=== PATIENT | male | born 1975 | race Two or more races ===

== ENCOUNTER 2021-10-14 20:25 | Emergency (ER) | payer MEDICAID, SELFPAY ==
[2021-10-14 21:35] VITALS: BP 178/109; PULSE 69; RESP 18; TEMP 36.8; O2SAT 99; BMI 23.0
[2021-10-14 22:44] VITALS: BP 166/93; PULSE 72; RESP 16; TEMP 36.8; O2SAT 98
[2021-10-14 23:27] LABS: MANUAL DIFF FLAG NO
[2021-10-14] MEDS: Famotidine/PF 20 MG/2 ML VIAL IVPUSH (23:28)
[2021-10-14] MEDS: Lactated Ringers 1,000 ML 999 ML IV (23:28)
[2021-10-14] MEDS: ondansetron HCL 4 MG/2 ML VIAL IVPUSH (23:28)
[2021-10-14 23:30] LABS: Basophils Percent Auto 0.3 % (0-2); Eosinophils Absolute Auto 0.2 X10*3/uL (0.0-0.4); Eosinophils Percent Auto 2.1 % (0-4); Hematocrit 42.4 % (42.0-52.0); Hemoglobin 14.5 g/dl (14.0-18.0); Imm Gran Abs Auto 0.03 X10*3/uL (0.00-0.03); Imm Gran Pct Auto 0.3 % (0.0-0.4); Lymphocytes Absolute Auto 2.5 X10*3/uL (1.2-4.9); Lymphocytes Percent Auto 25.7 % (20-40); Mean Corpuscular HGB Conc 34.2 g/dl (31.0-36.0); Mean Corpuscular Hemoglobin 30.9 pg (27.0-33.0); Mean Corpuscular Volume 90.2 fL (80.0-98.0); Mean Platelet Volume 9.9 fL (9.4-12.4); Monocytes Absolute Auto 0.9 X10*3/uL (0.1-1.2); Monocytes Percent Auto 9.1 % (2-11); Neutrophils Absolute Auto 6.2 x10*3/uL (2.0-8.3); Neutrophils Percent Auto 62.5 % (45-73); Platelet Count 243 X10*3/uL (160-400); Red Cell Distribution Width 12.4 % (11.0-16.0); White Blood Count 9.9 X10*3/uL (4.8-10.8)
--- NOTE | 2021-10-14 23:31 | ED.NAVMDI ---
HPI - Nausea/Vomiting/Diarrhea General Chief complaint: Dizziness Stated complaint: ?Dehydrated Time Seen by Provider: 10/14/21 23:00 Source: patient Mode of arrival: ambulatory Limitations: no limitations History of Present Illness MD elicited complaint: nausea, vomiting and other (weakness) Pertinent past history: other (started after drinkig fabio and vodka heavily last night) Onset (ago): day(s) (this AM) Description of vomiting: food contents and watery Associated nausea: Yes Associated abdominal pain: No Location of pain: none Severity: moderate Exacerbating factors: eating Relieving factors: none Context: other (heavy ETOH unusual for patient) Associated symptoms: loss of appetite, malaise, nausea/vomiting and weakness Related Data Previous Rx's Medication Instructions Recorded famotidine 20 mg tablet (Pepcid) 20 mg PO DAILY PRN abdominal 10/14/21 discomfort #30 tabs ondansetron 4 mg disintegrating 4 mg PO Q8H PRN nausea and 10/14/21 tablet vomiting #20 tabs Allergies Allergy/AdvReac Type Severity Reaction Status Date / Time No Known Allergies Allergy Verified 10/14/21 21:35 Review of Systems Review of Systems: Constitutional : No Weight loss, No Fever, No Chills ENT/Mouth : No sore throat, No Rhinorrhea Eyes: No Swelling, No Redness Cardiovascular : No Chest Pain, No SOB, NoEdema Respiratory : No Cough, No Sputum, No Wheezing Gastrointestinal : Positive Nausea, Positive Vomiting, no Diarrhea, no abdominal Pain, No Hematochezia, No Melena Genitourinary : No Dysuria, No Urinary Frequency, No Hematuria, No Urgency Musculoskeletal : No joint pain, No Myalgias, No Joint Swelling Skin : No Skin Lesions, No rash Neuro : pos Weakness, No Numbness, No Dizziness, No Headache Psych : No Anxiety/Panic, No Depression Heme/Lymph: No Bruising, No Lymphadenopathy Endocrine : No Polyuria, No Polydipsia All other systems reviewed and are negative. Gastrointestinal: Gastrointestinal: Reports nausea PMFSH Past Medical History Attestation statement: The following information was validated with the patient. Medical History (Updated 10/14/21 @ 23:37 by Lucia Holland DO) No pertinent past medical history Social History Social History Advance Directives: No Advance Directives Information Provided: No Physical Exam Vital Signs: Vital Signs: Last Vital Signs Temp 98.3 F 10/14/21 22:44 Pulse 72 10/14/21 22:44 Resp 16 10/14/21 22:44 BP 166/93 H 10/14/21 22:44 Pulse Ox 98 10/14/21 22:44 O2 Del Method 10/14/21 22:44 BMI result Body Mass Index 23.0 Appearance: Alert. Oriented X3. No acute distress. Eyes: Pupils equal, round and reactive to light. ENT: Pharynx mildly dry MM Neck: Normal inspection. Neck supple. CVS: Normal heart rate and rhythm. Pulses normal. Respiratory: No respiratory distress. Breath sounds normal. Abdomen: Soft and non-tender. Skin: Skin warm and dry. Normal skin color. Normal skin turgor. Extremities: No lower extremity edema. No calf ttp Neuro: Oriented X 3. No motor deficit. No sensory deficit. Course Course Course Narrative: feels better stable for DC MDM - Nausea/Vomiting/Diarrhea MDM Narrative Medical decision making narrative: 46 yo male with heavy ETOH last night here with c/o n/v weakness - doesn't normally drink this much. At this time will hydrate, treat symptoms, obtain basic labs anticipate DC home after medications. Lab Data Result diagrams: 10/14/21 23:22 10/14/21 23:22 Labs: Lab Results 10/14/21 10/14/21 Range/Units 23:22 23:22 WBC 9.9 (4.8-10.8) X10*3/uL RBC 4.70 (4.60-5.80) X10*6/uL Hgb 14.5 (14.0-18.0) g/dl Hct 42.4 (42.0-52.0) % MCV 90.2 (80.0-98.0) fL MCH 30.9 (27.0-33.0) pg MCHC 34.2 (31.0-36.0) g/dl RDW 12.4 (11.0-16.0) % Plt Count 243 (160-400) X10*3/uL MPV 9.9 (9.4-12.4) fL Immature Gran % (Auto) 0.3 (0.0-0.4) % Neut % (Auto) 62.5 (45-73) % Lymph % (Auto) 25.7 (20-40) % [place] % (Auto) 9.1 (2-11) % Eos % (Auto) 2.1 (0-4) % Baso % (Auto) 0.3 (0-2) % Lymph # (Auto) 2.5 (1.2-4.9) X10*3/uL [place] # (Auto) 0.9 (0.1-1.2) X10*3/uL Eos # (Auto) 0.2 (0.0-0.4) X10*3/uL Baso # (Auto) 0.0 (0.0-0.2) X10*3/uL Abs Immat Gran (auto) 0.03 (0.00-0.03) X10*3/uL Absolute Neuts (auto) 6.2 (2.0-8.3) x10*3/uL Absolute Nucleated RBC 0.000 (0.0-0.012) X10*3/uL Nucleated RBC % (auto) 0.0 (0.0-0.2) /100WBC Sodium 139 (135-145) mmol/L Potassium 4.3 (3.3-5.1) mmol/L Chloride 104 (96-108) mmol/L Carbon Dioxide 22 (22-29) mmol/L Anion Gap 17 (12-20) BUN 14 (9-16) mg/dL Creatinine 0.89 (0.5-1.4) mg/dL Estim Creat Clear Calc 123.3 Estimated GFR > 60 Random Glucose 93 (60-115) mg/dL Calcium 8.8 (8.4-10.2) mg/dL Magnesium 1.6 (1.6-2.6) mg/dL Total Bilirubin 0.6 (0.0-1.0) mg/dL Direct Bilirubin 0.2 (0.0-0.5) mg/dL AST 24 (5-37) U/L ALT 19 (0-40) U/L Alkaline Phosphatase 77 (39-117) U/L Total Protein 7.2 (6.5-8.0) g/dL Albumin 4.1 (3.5-5.0) g/dL Lipase 52 (8-78) U/L Discharge Plan Discharge Clinical Impression: Vomiting Qualifiers: Vomiting type: unspecified Nausea presence: with nausea Qualified Code(s): R11.2 - Nausea with vomiting, unspecified Patient Disposition: Home, Self-Care Instructions: Acute Nausea and Vomiting (ED) Additional Instructions: return to ED for any worsening symptoms or concerns Prescriptions: New famotidine [Pepcid] 20 mg tablet 20 mg PO DAILY PRN (Reason: abdominal discomfort) Qty: 30 0RF ondansetron 4 mg tablet,disintegrating 4 mg PO Q8H PRN (Reason: nausea and vomiting) Qty: 20 0RF Stand Alone Forms: Work/School Release
[2021-10-14 23:46] LABS: Alanine Aminotransferase 19 U/L (0-40); Albumin Level 4.1 g/dL (3.5-5.0); Alkaline Phosphatase 77 U/L (39-117); Anion Gap 17 (12-20); Aspartate Amino Transferase 24 U/L (5-37); Bilirubin Direct 0.2 mg/dL (0.0-0.5); Bilirubin Total 0.6 mg/dL (0.0-1.0); Blood Urea Nitrogen 14 mg/dL (9-16); Calcium 8.8 mg/dL (8.4-10.2); Carbon Dioxide 22 mmol/L (22-29); Chloride 104 mmol/L (96-108); Creatinine Clr Calc Pharmacy 123.3; Estimated Glomerular Filt Rate > 60; Glucose Random 93 mg/dL (60-115); Lipase 52 U/L (8-78); Magnesium 1.6 mg/dL (1.6-2.6); Potassium 4.3 mmol/L (3.3-5.1); Sodium 139 mmol/L (135-145); Total Protein 7.2 g/dL (6.5-8.0)
[2021-10-15 01:06] VITALS: BP 130/79; PULSE 79; RESP 16; TEMP 36.7; O2SAT 99
[2021-10-16 07:24] LABS: Glucose, Whole Blood 90 mg/dL (60-115)
== END 2021-10-15 01:07 | disposition home or self-care (01) ==
PROVIDERS: Emergency Provider Emergency Medicine
DX: R11.2 Nausea with vomiting, unspecified (principal)
CPT/HCPCS: 36415; 80048; 80076; 82947; 83690; 83735; 85025; 96361; 96374; 96375; 99284; J2405

== ENCOUNTER 2022-02-15 13:41 | Emergency (ER) | payer SELFPAY ==
--- NOTE | ~2022-02-15 | XR_ITS ---
EXAMINATION: XR CHEST CLINICAL INFORMATION: Chest pain COMPARISON: None TECHNIQUE: 2 views of the chest were obtained. FINDINGS: No significant abnormality is noted involving the heart, lungs, mediastinum, bony thorax or soft tissues. XR/XR chest 2V IMPRESSION: Unremarkable chest examination.
--- NOTE | 2022-02-15 13:58 | ED_ITS ---
HPI - Neck Pain/Injury General Chief Complaint: Chest Pain <Suzanna Harman NP - Last Filed: 02/15/22 14:01> Stated Complaint: neck pain no inj <Suzanna Harman NP - Last Filed: 02/15/22 14:01> Time Seen by Provider: 02/15/22 19:44 <Suzanna Harman NP - Last Filed: 02/15/22 14:01> Source: patient <TAM Juarez - Last Filed: 02/15/22 23:48> Mode of arrival: ambulatory <TAM Juarez Last Filed: 02/15/22 23:48> Limitations: no limitations <TAM Juarez Last Filed: 02/15/22 23:48> History of Present Illness HPI Narrative: This is a 46-year-old male with no known medical history however has not seen a PCP in years presenting to the emergency department with complaints of right-sided neck pain, left-sided chest pain that started this morning. Patient tells me this morning he woke up with stiff neck and he felt like he had a ball in the back of his neck on the right side. He tells me he felt like his neck was stiff not hurt when he moved it, he tells me he had his ?girl ?massage the area and put heat on it in since then this has improved. He also reports that after that happened he started experiencing some left-sided chest discomfort and he thought he noted swelling to the left side of his chest. Patient tells me that he is no longer having chest discomfort and he notes that the swelling has gone down. He tells me this is never happened to him before. Patient is noted to be hypertensive for triage I asked patient if he has a history of hypertension he tells me yes years ago he was told he had high blood pressure however was never started on medications he tells me his blood pressure has always been very high and concerning. Patient denies headache, vision changes, dizziness, weakness, chills shortness of breath, chest pain, nausea, vomiting, abdominal pain at this time. Patient is not followed by outpatient providers. NIH stroke scale 0. <TAM Juarez Last Filed: 02/15/22 23:48> Related Data Home Medications: Previous Rx's Medication Instructions Recorded famotidine 20 mg tablet (Pepcid) 20 mg PO DAILY PRN abdominal 10/14/21 discomfort #30 tabs ondansetron 4 mg disintegrating 4 mg PO Q8H PRN nausea and 10/14/21 tablet vomiting #20 tabs amlodipine 5 mg tablet 5 mg PO DAILY 30 days #30 tabs 02/15/22 cyclobenzaprine 10 mg tablet 10 mg PO BEDTIME PRN muscle spasm 02/15/22 #7 tabs lidocaine 5 % topical patch 1 patch topical DAILY PRN pain #15 02/15/22 ea <Suzanna Harman NP - Last Filed: 02/15/22 14:01> Allergies/Adverse Reactions: Allergies Allergy/AdvReac Type Severity Reaction Status Date / Time No Known Allergies Allergy Verified 10/14/21 21:35 <Suzanna Harman NP - Last Filed: 02/15/22 14:01> Review of Systems Review of Systems: Constitutional : No Weight loss, No Fever, No Chills, No Fatigue, No Malaise ENT/Mouth : No sore throat, No Rhinorrhea Eyes: No Eye Pain, No Swelling, No Redness Cardiovascular : No Chest Pain, No SOB, No Dyspnea on Exertion, No Orthopnea, No Edema, No Palpitations Respiratory : No Cough, No Sputum, No Wheezing Gastrointestinal : No Nausea, No Vomiting, No Diarrhea, No Constipation, No abdominal Pain, No Hematochezia, No Melena Genitourinary : No Dysuria, No Urinary Frequency, No Hematuria, Musculoskeletal : No joint pain, No Myalgias, No Joint Swelling, No neck pain Skin : No Skin Lesions, No rash Neuro : No Weakness, No Numbness, No Dizziness, No Headache Psych : No Anxiety/Panic, No Depression All other systems reviewed and are negative <TAM Juarez Last Filed: 02/15/22 23:48> Yes all other systems are reviewed and are negative <TAM Juarez Last Filed: 02/15/22 23:48> PMFSH Past Medical History Attestation statement: The following information was validated with the patient. <TAM Juarez Last Filed: 02/15/22 23:48> Source: old records reviewed and nursing notes reviewed <TAM Juarez - Last Filed: 02/15/22 23:48> Medical History: Medical History No pertinent past medical history <Suzanna Harman NP - Last Filed: 02/15/22 14:01> Social History Social History: Social History Advance Directives: No Advance Directives Information Provided: Yes <Suzanna Harman NP - Last Filed: 02/15/22 14:01> Physical Exam Vital Signs: Vital Signs: Last Vital Signs Temp 98.2 F 02/15/22 23:40 Pulse 63 02/15/22 23:40 Resp 11 L 02/15/22 23:40 BP 159/98 H 02/15/22 23:40 Pulse Ox 97 02/15/22 23:40 O2 Del Method 02/15/22 23:40 BMI result Body Mass Index 23.6 <Suzanna Harman NP - Last Filed: 02/15/22 14:01> Vital Signs: Last Vital Signs Temp 98.2 F 02/15/22 23:40 Pulse 63 02/15/22 23:40 Resp 11 L 02/15/22 23:40 BP 159/98 H 02/15/22 23:40 Pulse Ox 97 02/15/22 23:40 O2 Del Method 02/15/22 23:40 BMI result Body Mass Index 23.6 HTN noted likley secondary to pain and or anxiety will repeat <TAM Juarez - Last Filed: 02/15/22 23:48> Appearance: Alert.? Oriented X3.? No acute distress.? Head: Normocephalic, atraumatic, no step-offs or deformities Eyes: Pupils equal, round and reactive to light.? ENT: Pharynx normal.? Neck: Normal inspection.? Neck supple.? Negative Kernig and Brudzinski. CVS: Normal heart rate and rhythm.? Pulses normal.? Respiratory: No respiratory distress.? Breath sounds normal.? Abdomen: Soft and nontender.? Skin: Skin warm and dry.? Normal skin color.? Normal skin turgor.? Extremities: No lower extremity edema.? No calf ttp. 5/5 strength to bilateral upper and lower extremities Back: Full range of motion to. No midline tenderness. No step-offs or deformities. Overlying skin changes Neuro: Oriented X 3.? No motor deficit.? No sensory deficit. CN 2-12 intact . Ambulating with steady gait normal coordination. NIHSS-0 <TAM Juarez - Last Filed: 02/15/22 23:48> Course Course Course Narrative: This is rapid medical exam. Deferred additional HPI, ROS, PE to primary provider. 46 yo male previously healthy here with constant right sided neck pain, left sided chest pain since 2am. No previous injury or trauma. Will check labs, EKG, CXR. VSS. <Suzanna Harman NP - Last Filed: 02/15/22 14:01> Reevaluation(s) Reevaluation #1: CBC appears to be within normal limits. Chemistry with no acute findings requiring intervention. Troponin negative, EKG nonischemic unlikely ACS. Second troponin pending. Chest x-ray with no acute findings. <TAM Juarez - Last Filed: 02/15/22 23:48> Time: 20:03 <TAM Juarez - Last Filed: 02/15/22 23:48> Reevaluation #2: Second troponin negative. Patient remains symptom-free. Patient's blood pressure remains significantly elevated despite to 5 mg p.o. amlodipine. I discussed this case with my attending Dr. Manning who recommends giving 10 mg po amlodipine now (total of 20 mg) and 1/2 inch of nitro. <TAM Juarez - Last Filed: 02/15/22 23:48> Time: 22:16 <TAM Juarez - Last Filed: 02/15/22 23:48> Reevaluation #3: Patient's blood pressure responded well to 10 mg of amlodipine and nitro. Patient feels well, no chest pain or shortness of breath. Will discharge him home on 5 mg of p.o. amlodipine daily, gave him follow-up with Cardiology, gave him a list of primary care providers in the area. This discharge plan was discussed with my attending Dr. Manning who agrees with my treatment plan. Educated patient on diagnosis and treatment plan, answered all question, patient verbalizes understanding. At this time patient will be discharged home, advised to return with new or worsening symptoms. Educated on worrisome signs and symptoms and when to return. At this time I feel comfortable discharge home. To know I did advise him to come in for repeat blood pressure check in a day or 2 as he does not have a primary care provider in new medications were started. <TAM Juarez - Last Filed: 02/15/22 23:48> Time: 23:44 <TAM Juarez - Last Filed: 02/15/22 23:48> Medications Administered Discontinued Medications Generic Name Dose Route Start Last Admin Trade Name Freq PRN Reason Stop Dose Admin Amlodipine Besylate 5 mg 02/15/22 19:59 02/15/22 20:13 Amlodipine Besylate 5 Mg Tablet PO 02/15/22 20:00 5 mg ONCE ONE Administration Protocol Amlodipine Besylate 5 mg 02/15/22 20:43 02/15/22 21:12 Amlodipine Besylate 5 Mg Tablet PO 02/15/22 20:44 5 mg ONCE ONE Administration Protocol Amlodipine Besylate 10 mg 02/15/22 22:15 02/15/22 23:32 Amlodipine Besylate 10 Mg Tablet PO 02/15/22 22:16 10 mg ONCE ONE Administration Protocol Ketorolac Tromethamine 30 mg 02/15/22 20:41 02/15/22 21:12 Ketorolac Tromethamine 30 Mg/Ml Vial IM 02/15/22 20:42 30 mg ONCE ONE Administration Nitroglycerin 0.5 inch 02/15/22 22:16 02/15/22 23:32 Nitroglycerin 2 % Oint 1 Gm Packet TRANSDERMA 02/15/22 22:17 0.5 inch ONCE ONE Administration <Suzanna Harman NP - Last Filed: 02/15/22 14:01> Medications Administered Discontinued Medications Generic Name Dose Route Start Last Admin Trade Name Freq PRN Reason Stop Dose Admin Amlodipine Besylate 5 mg 02/15/22 19:59 02/15/22 20:13 Amlodipine Besylate 5 Mg Tablet PO 02/15/22 20:00 5 mg ONCE ONE Administration Protocol Amlodipine Besylate 5 mg 02/15/22 20:43 02/15/22 21:12 Amlodipine Besylate 5 Mg Tablet PO 02/15/22 20:44 5 mg ONCE ONE Administration Protocol Amlodipine Besylate 10 mg 02/15/22 22:15 02/15/22 23:32 Amlodipine Besylate 10 Mg Tablet PO 02/15/22 22:16 10 mg ONCE ONE Administration Protocol Ketorolac Tromethamine 30 mg 02/15/22 20:41 02/15/22 21:12 Ketorolac Tromethamine 30 Mg/Ml Vial IM 02/15/22 20:42 30 mg ONCE ONE Administration Nitroglycerin 0.5 inch 02/15/22 22:16 02/15/22 23:32 Nitroglycerin 2 % Oint 1 Gm Packet TRANSDERMA 02/15/22 22:17 0.5 inch ONCE ONE Administration <TAM Juarez - Last Filed: 02/15/22 23:48> Medical Decision Making Medical Decision Making MDM Narrative: 1948 46-year-old male with no outpatient providers presents with complaints of right- sided neck pain left-sided chest pain and swelling that started today which has now resolved and or improved. Patient noted to be hypertensive in triage tells me is a history of high blood pressure however has never taken medications for it. Denies any symptoms associated with high blood pressure. Physical examination benign. NIH stroke scale 0. Negative Kernig and Brudzinski Likely cervical spasm, and chest wall muscle spasms. Unlikely ACS, PE, AAA, meningitis, encephalitis, pericarditis, myocarditis. Plan at this time is to obtain basic labs, troponin, chest x-ray. Will give amlodipine 5 mg for hypertension. <TAM Juarez - Last Filed: 02/15/22 23:48> Lab Data Result Diagrams: : 02/15/22 14:15 02/15/22 14:15 <Suzanna Harman NP - Last Filed: 02/15/22 14:01> Labs: Lab Results 02/15/22 02/15/22 02/15/22 Range/Units 14:15 14:15 14:15 WBC 8.5 (4.8-10.8) X10*3/uL RBC 4.72 (4.60-5.80) X10*6/uL Hgb 14.6 (14.0-18.0) g/dl Hct 42.4 (42.0-52.0) % MCV 89.8 (80.0-98.0) fL MCH 30.9 (27.0-33.0) pg MCHC 34.4 (31.0-36.0) g/dl RDW 12.2 (11.0-16.0) % Plt Count 311 D (160-400) X10*3/uL MPV 10.0 (9.4-12.4) fL Immature Gran % (Auto) 0.4 (0.0-0.4) % Neut % (Auto) 54.7 (45-73) % Lymph % (Auto) 33.9 (20-40) % [place] % (Auto) 7.7 (2-11) % Eos % (Auto) 2.8 (0-4) % Baso % (Auto) 0.5 (0-2) % Lymph # (Auto) 2.9 (1.2-4.9) X10*3/uL [place] # (Auto) 0.7 (0.1-1.2) X10*3/uL Eos # (Auto) 0.2 (0.0-0.4) X10*3/uL Baso # (Auto) 0.0 (0.0-0.2) X10*3/uL Abs Immat Gran (auto) 0.03 (0.00-0.03) X10*3/uL Absolute Neuts (auto) 4.6 (2.0-8.3) x10*3/uL Absolute Nucleated RBC 0.000 (0.0-0.012) X10*3/uL Nucleated RBC % (auto) 0.0 (0.0-0.2) /100WBC Sodium 138 (135-145) mmol/L Potassium 4.2 (3.3-5.1) mmol/L Chloride 105 (96-108) mmol/L Carbon Dioxide 25 (22-29) mmol/L Anion Gap 12 (12-20) BUN 17 H (9-16) mg/dL Creatinine 0.84 (0.5-1.4) mg/dL Estim Creat Clear Calc 132.0 Estimated GFR > 60 Random Glucose 119 H (60-115) mg/dL Calcium 9.7 D (8.4-10.2) mg/dL Magnesium 1.9 (1.6-2.6) mg/dL Total Bilirubin 0.6 (0.0-1.0) mg/dL Direct Bilirubin 0.2 (0.0-0.5) mg/dL AST 20 (5-37) U/L ALT 35 (0-40) U/L Alkaline Phosphatase 82 (39-117) U/L Troponin I High Sens < 3.5 (<3.5-35.0) ng/L Total Protein 7.9 (6.5-8.0) g/dL Albumin 4.5 (3.5-5.0) g/dL Urine Color Urine Appearance Urine pH (5.0-9.0) Ur Specific [place] (1.005-1.025) Urine Protein (Neg-Trace) mg/dL Urine Glucose (UA) (Negative) mg/dL Urine Ketones (Negative) mg/dL Urine Blood (Negative) Urine Nitrite (Negative) Ur Leukocyte Esterase (Negative) Urine Opiates Screen (Not Detect) Urine Fentanyl Screen (Not Detect) Ur Barbiturates Screen (Not Detect) Ur Phencyclidine Scrn (Not Detect) Ur Amphetamines Screen (Not Detect) U Benzodiazepines Scrn (Not Detect) Urine Cocaine Screen (Not Detect) U Marijuana (THC) Screen (Not Detect) COVID-19 (RAMOS) (Negative) COVID-19 Clin Com Influenza Type A (RAFAEL) (Negative) Influenza Type B (RAFAEL) (Negative) Influenza A & B Note 02/15/22 02/15/22 02/15/22 Range/Units 20:01 20:39 20:39 WBC (4.8-10.8) X10*3/uL RBC (4.60-5.80) X10*6/uL Hgb (14.0-18.0) g/dl Hct (42.0-52.0) % MCV (80.0-98.0) fL MCH (27.0-33.0) pg MCHC (31.0-36.0) g/dl RDW (11.0-16.0) % Plt Count (160-400) X10*3/uL MPV (9.4-12.4) fL Immature Gran % (Auto) (0.0-0.4) % Neut % (Auto) (45-73) % Lymph % (Auto) (20-40) % [place] % (Auto) (2-11) % Eos % (Auto) (0-4) % Baso % (Auto) (0-2) % Lymph # (Auto) (1.2-4.9) X10*3/uL [place] # (Auto) (0.1-1.2) X10*3/uL Eos # (Auto) (0.0-0.4) X10*3/uL Baso # (Auto) (0.0-0.2) X10*3/uL Abs Immat Gran (auto) (0.00-0.03) X10*3/uL Absolute Neuts (auto) (2.0-8.3) x10*3/uL Absolute Nucleated RBC (0.0-0.012) X10*3/uL Nucleated RBC % (auto) (0.0-0.2) /100WBC Sodium (135-145) mmol/L Potassium (3.3-5.1) mmol/L Chloride (96-108) mmol/L Carbon Dioxide (22-29) mmol/L Anion Gap (12-20) BUN (9-16) mg/dL Creatinine (0.5-1.4) mg/dL Estim Creat Clear Calc Estimated GFR Random Glucose (60-115) mg/dL Calcium (8.4-10.2) mg/dL Magnesium (1.6-2.6) mg/dL Total Bilirubin (0.0-1.0) mg/dL Direct Bilirubin (0.0-0.5) mg/dL AST (5-37) U/L ALT (0-40) U/L Alkaline Phosphatase (39-117) U/L Troponin I High Sens < 3.5 (<3.5-35.0) ng/L Total Protein (6.5-8.0) g/dL Albumin (3.5-5.0) g/dL Urine Color Urine Appearance Urine pH (5.0-9.0) Ur Specific [place] (1.005-1.025) Urine Protein (Neg-Trace) mg/dL Urine Glucose (UA) (Negative) mg/dL Urine Ketones (Negative) mg/dL Urine Blood (Negative) Urine Nitrite (Negative) Ur Leukocyte Esterase (Negative) Urine Opiates Screen (Not Detect) Urine Fentanyl Screen (Not Detect) Ur Barbiturates Screen (Not Detect) Ur Phencyclidine Scrn (Not Detect) Ur Amphetamines Screen (Not Detect) U Benzodiazepines Scrn (Not Detect) Urine Cocaine Screen (Not Detect) U Marijuana (THC) Screen (Not Detect) COVID-19 (RAMOS) Negative (Negative) COVID-19 Clin Com See Note Influenza Type A (RAFAEL) Negative (Negative) Influenza Type B (RAFAEL) Negative (Negative) Influenza A & B Note See Note 02/15/22 02/15/22 Range/Units 20:39 20:39 WBC (4.8-10.8) X10*3/uL RBC (4.60-5.80) X10*6/uL Hgb (14.0-18.0) g/dl Hct (42.0-52.0) % MCV (80.0-98.0) fL MCH (27.0-33.0) pg MCHC (31.0-36.0) g/dl RDW (11.0-16.0) % Plt Count (160-400) X10*3/uL MPV (9.4-12.4) fL Immature Gran % (Auto) (0.0-0.4) % Neut % (Auto) (45-73) % Lymph % (Auto) (20-40) % [place] % (Auto) (2-11) % Eos % (Auto) (0-4) % Baso % (Auto) (0-2) % Lymph # (Auto) (1.2-4.9) X10*3/uL [place] # (Auto) (0.1-1.2) X10*3/uL Eos # (Auto) (0.0-0.4) X10*3/uL Baso # (Auto) (0.0-0.2) X10*3/uL Abs Immat Gran (auto) (0.00-0.03) X10*3/uL Absolute Neuts (auto) (2.0-8.3) x10*3/uL Absolute Nucleated RBC (0.0-0.012) X10*3/uL Nucleated RBC % (auto) (0.0-0.2) /100WBC Sodium (135-145) mmol/L Potassium (3.3-5.1) mmol/L Chloride (96-108) mmol/L Carbon Dioxide (22-29) mmol/L Anion Gap (12-20) BUN (9-16) mg/dL Creatinine (0.5-1.4) mg/dL Estim Creat Clear Calc Estimated GFR Random Glucose (60-115) mg/dL Calcium (8.4-10.2) mg/dL Magnesium (1.6-2.6) mg/dL Total Bilirubin (0.0-1.0) mg/dL Direct Bilirubin (0.0-0.5) mg/dL AST (5-37) U/L ALT (0-40) U/L Alkaline Phosphatase (39-117) U/L Troponin I High Sens (<3.5-35.0) ng/L Total Protein (6.5-8.0) g/dL Albumin (3.5-5.0) g/dL Urine Color Yellow Urine Appearance Clear Urine pH 5.5 (5.0-9.0) Ur Specific [place] 1.010 (1.005-1.025) Urine Protein Negative (Neg-Trace) mg/dL Urine Glucose (UA) Negative (Negative) mg/dL Urine Ketones Negative (Negative) mg/dL Urine Blood Negative (Negative) Urine Nitrite Negative (Negative) Ur Leukocyte Esterase Negative (Negative) Urine Opiates Screen Not Detected (Not Detect) Urine Fentanyl Screen Not Detected (Not Detect) Ur Barbiturates Screen Not Detected (Not Detect) Ur Phencyclidine Scrn Not Detected (Not Detect) Ur Amphetamines Screen Not Detected (Not Detect) U Benzodiazepines Scrn Not Detected (Not Detect) Urine Cocaine Screen Not Detected (Not Detect) U Marijuana (THC) Screen Not Detected (Not Detect) COVID-19 (RAMOS) (Negative) COVID-19 Clin Com Influenza Type A (RAFAEL) (Negative) Influenza Type B (RAFAEL) (Negative) Influenza A & B Note <Suzanna Harman NP - Last Filed: 02/15/22 14:01> Lab Results 02/15/22 02/15/22 02/15/22 Range/Units 14:15 14:15 14:15 WBC 8.5 (4.8-10.8) X10*3/uL RBC 4.72 (4.60-5.80) X10*6/uL Hgb 14.6 (14.0-18.0) g/dl Hct 42.4 (42.0-52.0) % MCV 89.8 (80.0-98.0) fL MCH 30.9 (27.0-33.0) pg MCHC 34.4 (31.0-36.0) g/dl RDW 12.2 (11.0-16.0) % Plt Count 311 D (160-400) X10*3/uL MPV 10.0 (9.4-12.4) fL Immature Gran % (Auto) 0.4 (0.0-0.4) % Neut % (Auto) 54.7 (45-73) % Lymph % (Auto) 33.9 (20-40) % [place] % (Auto) 7.7 (2-11) % Eos % (Auto) 2.8 (0-4) % Baso % (Auto) 0.5 (0-2) % Lymph # (Auto) 2.9 (1.2-4.9) X10*3/uL [place] # (Auto) 0.7 (0.1-1.2) X10*3/uL Eos # (Auto) 0.2 (0.0-0.4) X10*3/uL Baso # (Auto) 0.0 (0.0-0.2) X10*3/uL Abs Immat Gran (auto) 0.03 (0.00-0.03) X10*3/uL Absolute Neuts (auto) 4.6 (2.0-8.3) x10*3/uL Absolute Nucleated RBC 0.000 (0.0-0.012) X10*3/uL Nucleated RBC % (auto) 0.0 (0.0-0.2) /100WBC Sodium 138 (135-145) mmol/L Potassium 4.2 (3.3-5.1) mmol/L Chloride 105 (96-108) mmol/L Carbon Dioxide 25 (22-29) mmol/L Anion Gap 12 (12-20) BUN 17 H (9-16) mg/dL Creatinine 0.84 (0.5-1.4) mg/dL Estim Creat Clear Calc 132.0 Estimated GFR > 60 Random Glucose 119 H (60-115) mg/dL Calcium 9.7 D (8.4-10.2) mg/dL Magnesium 1.9 (1.6-2.6) mg/dL Total Bilirubin 0.6 (0.0-1.0) mg/dL Direct Bilirubin 0.2 (0.0-0.5) mg/dL AST 20 (5-37) U/L ALT 35 (0-40) U/L Alkaline Phosphatase 82 (39-117) U/L Troponin I High Sens < 3.5 (<3.5-35.0) ng/L Total Protein 7.9 (6.5-8.0) g/dL Albumin 4.5 (3.5-5.0) g/dL Urine Color Urine Appearance Urine pH (5.0-9.0) Ur Specific [place] (1.005-1.025) Urine Protein (Neg-Trace) mg/dL Urine Glucose (UA) (Negative) mg/dL Urine Ketones (Negative) mg/dL Urine Blood (Negative) Urine Nitrite (Negative) Ur Leukocyte Esterase (Negative) Urine Opiates Screen (Not Detect) Urine Fentanyl Screen (Not Detect) Ur Barbiturates Screen (Not Detect) Ur Phencyclidine Scrn (Not Detect) Ur Amphetamines Screen (Not Detect) U Benzodiazepines Scrn (Not Detect) Urine Cocaine Screen (Not Detect) U Marijuana (THC) Screen (Not Detect) COVID-19 (RAMOS) (Negative) COVID-19 Clin Com Influenza Type A (RAFAEL) (Negative) Influenza Type B (RAFAEL) (Negative) Influenza A & B Note 02/15/22 02/15/22 02/15/22 Range/Units 20:01 20:39 20:39 WBC (4.8-10.8) X10*3/uL RBC (4.60-5.80) X10*6/uL Hgb (14.0-18.0) g/dl Hct (42.0-52.0) % MCV (80.0-98.0) fL MCH (27.0-33.0) pg MCHC (31.0-36.0) g/dl RDW (11.0-16.0) % Plt Count (160-400) X10*3/uL MPV (9.4-12.4) fL Immature Gran % (Auto) (0.0-0.4) % Neut % (Auto) (45-73) % Lymph % (Auto) (20-40) % [place] % (Auto) (2-11) % Eos % (Auto) (0-4) % Baso % (Auto) (0-2) % Lymph # (Auto) (1.2-4.9) X10*3/uL [place] # (Auto) (0.1-1.2) X10*3/uL Eos # (Auto) (0.0-0.4) X10*3/uL Baso # (Auto) (0.0-0.2) X10*3/uL Abs Immat Gran (auto) (0.00-0.03) X10*3/uL Absolute Neuts (auto) (2.0-8.3) x10*3/uL Absolute Nucleated RBC (0.0-0.012) X10*3/uL Nucleated RBC % (auto) (0.0-0.2) /100WBC Sodium (135-145) mmol/L Potassium (3.3-5.1) mmol/L Chloride (96-108) mmol/L Carbon Dioxide (22-29) mmol/L Anion Gap (12-20) BUN (9-16) mg/dL Creatinine (0.5-1.4) mg/dL Estim Creat Clear Calc Estimated GFR Random Glucose (60-115) mg/dL Calcium (8.4-10.2) mg/dL Magnesium (1.6-2.6) mg/dL Total Bilirubin (0.0-1.0) mg/dL Direct Bilirubin (0.0-0.5) mg/dL AST (5-37) U/L ALT (0-40) U/L Alkaline Phosphatase (39-117) U/L Troponin I High Sens < 3.5 (<3.5-35.0) ng/L Total Protein (6.5-8.0) g/dL Albumin (3.5-5.0) g/dL Urine Color Urine Appearance Urine pH (5.0-9.0) Ur Specific [place] (1.005-1.025) Urine Protein (Neg-Trace) mg/dL Urine Glucose (UA) (Negative) mg/dL Urine Ketones (Negative) mg/dL Urine Blood (Negative) Urine Nitrite (Negative) Ur Leukocyte Esterase (Negative) Urine Opiates Screen (Not Detect) Urine Fentanyl Screen (Not Detect) Ur Barbiturates Screen (Not Detect) Ur Phencyclidine Scrn (Not Detect) Ur Amphetamines Screen (Not Detect) U Benzodiazepines Scrn (Not Detect) Urine Cocaine Screen (Not Detect) U Marijuana (THC) Screen (Not Detect) COVID-19 (RAMOS) Negative (Negative) COVID-19 Clin Com See Note Influenza Type A (RAFAEL) Negative (Negative) Influenza Type B (RAFAEL) Negative (Negative) Influenza A & B Note See Note 02/15/22 02/15/22 Range/Units 20:39 20:39 WBC (4.8-10.8) X10*3/uL RBC (4.60-5.80) X10*6/uL Hgb (14.0-18.0) g/dl Hct (42.0-52.0) % MCV (80.0-98.0) fL MCH (27.0-33.0) pg MCHC (31.0-36.0) g/dl RDW (11.0-16.0) % Plt Count (160-400) X10*3/uL MPV (9.4-12.4) fL Immature Gran % (Auto) (0.0-0.4) % Neut % (Auto) (45-73) % Lymph % (Auto) (20-40) % [place] % (Auto) (2-11) % Eos % (Auto) (0-4) % Baso % (Auto) (0-2) % Lymph # (Auto) (1.2-4.9) X10*3/uL [place] # (Auto) (0.1-1.2) X10*3/uL Eos # (Auto) (0.0-0.4) X10*3/uL Baso # (Auto) (0.0-0.2) X10*3/uL Abs Immat Gran (auto) (0.00-0.03) X10*3/uL Absolute Neuts (auto) (2.0-8.3) x10*3/uL Absolute Nucleated RBC (0.0-0.012) X10*3/uL Nucleated RBC % (auto) (0.0-0.2) /100WBC Sodium (135-145) mmol/L Potassium (3.3-5.1) mmol/L Chloride (96-108) mmol/L Carbon Dioxide (22-29) mmol/L Anion Gap (12-20) BUN (9-16) mg/dL Creatinine (0.5-1.4) mg/dL Estim Creat Clear Calc Estimated GFR Random Glucose (60-115) mg/dL Calcium (8.4-10.2) mg/dL Magnesium (1.6-2.6) mg/dL Total Bilirubin (0.0-1.0) mg/dL Direct Bilirubin (0.0-0.5) mg/dL AST (5-37) U/L ALT (0-40) U/L Alkaline Phosphatase (39-117) U/L Troponin I High Sens (<3.5-35.0) ng/L Total Protein (6.5-8.0) g/dL Albumin (3.5-5.0) g/dL Urine Color Yellow Urine Appearance Clear Urine pH 5.5 (5.0-9.0) Ur Specific [place] 1.010 (1.005-1.025) Urine Protein Negative (Neg-Trace) mg/dL Urine Glucose (UA) Negative (Negative) mg/dL Urine Ketones Negative (Negative) mg/dL Urine Blood Negative (Negative) Urine Nitrite Negative (Negative) Ur Leukocyte Esterase Negative (Negative) Urine Opiates Screen Not Detected (Not Detect) Urine Fentanyl Screen Not Detected (Not Detect) Ur Barbiturates Screen Not Detected (Not Detect) Ur Phencyclidine Scrn Not Detected (Not Detect) Ur Amphetamines Screen Not Detected (Not Detect) U Benzodiazepines Scrn Not Detected (Not Detect) Urine Cocaine Screen Not Detected (Not Detect) U Marijuana (THC) Screen Not Detected (Not Detect) COVID-19 (RAMOS) (Negative) COVID-19 Clin Com Influenza Type A (RAFAEL) (Negative) Influenza Type B (RAFAEL) (Negative) Influenza A & B Note <TAM Juarez - Last Filed: 02/15/22 23:48> Critical Care Time Critical Care Time Critical Care Time: No <TAM Juarez - Last Filed: 02/15/22 23:48> Discharge Plan Discharge Clinical Impression: Chest pain, Spasm of cervical paraspinous muscle, High blood pressure <Suzanna Harman NP - Last Filed: 02/15/22 14:01> Patient Disposition: Home, Self-Care <Suzanna Harman NP - Last Filed: 02/15/22 14:01> Instructions: Muscle Spasm (ED), Chest Wall Pain (ED) <Suzanna Harman NP - Last Filed: 02/15/22 14:01> Additional Instructions: Take your medications as prescribed. If you were prescribed antibiotics today, it is important that you take your medication to their entirety, do not skip any doses, do not finish them early. Follow-up with your primary care provider this week. Follow-up with cardiology if necessary Return to the emergency department with new or worsening symptoms. Such as fevers, chills, chest pain, shortness of breath, nausea, vomiting, dizziness, headache, vision changes, lethargy, worsening pain, swelling any new or worrisome signs and symptoms In case of emergency call 911 Your laboratory studies, cardiac enzymes, EKG were reassuring. Your x-ray showed no acute findings. Please check your blood pressure Saturday, Saturday, Saturday, write it down ensure there primary care provider. I gave you list of primary care providers in the area. Please return in a day or 2 for a blood pressure check as you do not have a primary care provider <Suzanna Harman NP - Last Filed: 02/15/22 14:01> Prescriptions: New cyclobenzaprine 10 mg tablet 10 mg PO BEDTIME PRN (Reason: muscle spasm) Qty: 7 0RF lidocaine 5 % adhesive patch,medicated 1 patch topical DAILY PRN (Reason: pain) Qty: 15 0RF Rx Instructions: leave on most painful area for up to 12 hrs amlodipine 5 mg tablet 5 mg PO DAILY 30 Days Qty: 30 0RF No Action famotidine [Pepcid] 20 mg tablet 20 mg PO DAILY PRN (Reason: abdominal discomfort) Qty: 30 0RF ondansetron 4 mg tablet,disintegrating 4 mg PO Q8H PRN (Reason: nausea and vomiting) Qty: 20 0RF <Suzanna Harman NP - Last Filed: 02/15/22 14:01> Referrals: [facility] [place] [facility] [Provider Group] - 1 week <Suzanna Harman NP - Last Filed: 02/15/22 14:01> Stand Alone Forms: Work/School Release <Suzanna Harman NP - Last Filed: 02/15/22 14:01>
[2022-02-15 13:59] VITALS: BP 194/122; PULSE 84; RESP 18; TEMP 36.5; O2SAT 98; BMI 23.6
--- NOTE | 2022-02-15 14:00 | ECG_ITS ---
Test Reason : chest pain Blood Pressure : / mmHG Vent. Rate : 083 BPM Atrial Rate : 083 BPM P-R Int : 198 ms QRS Dur : 096 ms QT Int : 374 ms P-R-T Axes : 034 -07 -12 degrees QTc Int : 439 ms Normal sinus rhythm Minimal voltage criteria for LVH, may be normal variant ( R in aVL ) Borderline ECG No previous ECGs available Referred By: Suzanna Harman Electronically Signed By:SHERRY DALLAS MD
[2022-02-15 14:18] LABS: MANUAL DIFF FLAG NO
[2022-02-15 14:20] LABS: Basophils Percent Auto 0.5 % (0-2); Eosinophils Absolute Auto 0.2 X10*3/uL (0.0-0.4); Eosinophils Percent Auto 2.8 % (0-4); Hematocrit 42.4 % (42.0-52.0); Hemoglobin 14.6 g/dl (14.0-18.0); Imm Gran Abs Auto 0.03 X10*3/uL (0.00-0.03); Imm Gran Pct Auto 0.4 % (0.0-0.4); Lymphocytes Absolute Auto 2.9 X10*3/uL (1.2-4.9); Lymphocytes Percent Auto 33.9 % (20-40); Mean Corpuscular HGB Conc 34.4 g/dl (31.0-36.0); Mean Corpuscular Hemoglobin 30.9 pg (27.0-33.0); Mean Corpuscular Volume 89.8 fL (80.0-98.0); Monocytes Absolute Auto 0.7 X10*3/uL (0.1-1.2); Monocytes Percent Auto 7.7 % (2-11); Neutrophils Absolute Auto 4.6 x10*3/uL (2.0-8.3); Neutrophils Percent Auto 54.7 % (45-73); Platelet Count 311 X10*3/uL (160-400); Red Blood Count 4.72 X10*6/uL (4.60-5.80); Red Cell Distribution Width 12.2 % (11.0-16.0); White Blood Count 8.5 X10*3/uL (4.8-10.8)
[2022-02-15 14:44] LABS: Alanine Aminotransferase 35 U/L (0-40); Albumin Level 4.5 g/dL (3.5-5.0); Alkaline Phosphatase 82 U/L (39-117); Anion Gap 12 (12-20); Aspartate Amino Transferase 20 U/L (5-37); Bilirubin Direct 0.2 mg/dL (0.0-0.5); Bilirubin Total 0.6 mg/dL (0.0-1.0); Blood Urea Nitrogen 17 mg/dL (9-16); Calcium 9.7 mg/dL (8.4-10.2); Carbon Dioxide 25 mmol/L (22-29); Chloride 105 mmol/L (96-108); Estimated Glomerular Filt Rate > 60; Glucose Random 119 mg/dL (60-115); Magnesium 1.9 mg/dL (1.6-2.6); Potassium 4.2 mmol/L (3.3-5.1); Sodium 138 mmol/L (135-145); Total Protein 7.9 g/dL (6.5-8.0)
[2022-02-15 15:04] LABS: Troponin-I High Sensitivity < 3.5 ng/L (<3.5-35.0)
[2022-02-15 19:42] VITALS: BP 184/104; PULSE 78; RESP 18; TEMP 36.8; O2SAT 98
[2022-02-15 20:01] VITALS: BP 175/106; PULSE 78; RESP 18; TEMP 36.8; O2SAT 96
[2022-02-15] MEDS: amLODIPine Besylate 5 MG TABLET PO ×2 (20:13→21:12)
[2022-02-15 20:34] LABS: Troponin-I High Sensitivity < 3.5 ng/L (<3.5-35.0)
[2022-02-15 20:42] VITALS: BP 167/110; PULSE 70; RESP 20; O2SAT 97
[2022-02-15 20:51] LABS: Appearance Urine Clear; Color Urine Yellow; Glucose Urine UA Negative (Negative); Leukocyte Esterase Urine Negative (Negative); Nitrite Urine Negative (Negative); PH 5.5 (5.0-9.0); Urine Blood Negative (Negative); Urine Ketones Negative (Negative); Urine Protein Negative (Neg-Trace)
[2022-02-15 20:59] LABS: Amphetamine Screen Urine Not Detected (Not Detect); Barbiturates, Urine Not Detected (Not Detect); Benzodiazepines Screen Urine Not Detected (Not Detect); Cannabinoid Screen Urine Not Detected (Not Detect); Cocaine Screen Urine Not Detected (Not Detect); Fentanyl, urine Not Detected (Not Detect); Opiate Screen Urine Not Detected (Not Detect); Phencyclidine Screen Urine Not Detected (Not Detect)
[2022-02-15 21:06] LABS: COVID-19 Test Negative (Negative); IDNOW Serial# BCCEAD1C
[2022-02-15 21:07] LABS: IDNOW Serial# 16C4AD1C; Influenza A Negative (Negative); Influenza B2 Negative (Negative)
[2022-02-15] MEDS: Ketorolac Tromethamine 30 MG/ML VIAL IM (21:12)
[2022-02-15 22:02] VITALS: BP 171/105; PULSE 74; RESP 11; TEMP 36.6; O2SAT 99
[2022-02-15] MEDS: amLODIPine Besylate 10 MG TABLET PO (23:32)
[2022-02-15] MEDS: Nitroglycerin 2 % Oint 1 GM Packet 0.5 INCH TRANSDERMA (23:32)
[2022-02-15 23:40] VITALS: BP 159/98; PULSE 63; RESP 11; TEMP 36.8; O2SAT 97
== END 2022-02-15 23:56 | disposition home or self-care (01) ==
PROVIDERS: Nurse Practitioner Family; Physician Assistant; Emergency Provider Emergency Medicine
DX: R07.9 Chest pain, unspecified (principal); M62.838 Other muscle spasm; I10 Essential (primary) hypertension; Z20.822 Contact with and (suspected) exposure to COVID-19; Z79.899 Other long term (current) drug therapy
CPT/HCPCS: 36415; 71046; 80048; 80076; 80307; 81003; 83735; 84484; 85025; 87502; 87635; 93005; 96372; 99284; 99285; J1885

== ENCOUNTER 2022-03-09 21:43 | Emergency (ER) | payer SELFPAY ==
[2022-03-09 21:52] VITALS: BP 144/92; PULSE 82; RESP 20; TEMP 36.5; O2SAT 97; BMI 23.1
--- NOTE | 2022-03-09 22:05 | ED.GENADULT ---
HPI - General Adult General Chief complaint: Extremity Problem Stated complaint: Gout Time Seen by Provider: 03/09/22 22:05 Source: patient Mode of arrival: ambulatory Limitations: no limitations History of Present Illness HPI narrative: Patient is a 46 year old assigned male at with no reported medical history presenting to the emergency department today with left great toe pain. Patient states that for the last week or so he has had left great toe pain, redness, and swelling. Patient states that Naproxen helped some. Patient denies any dizziness, lightheadedness, abdominal pain, nausea, vomiting, fever, chills, blurry vision, double vision, loss of vision, chest pain, difficulty breathing, shortness of breath, back pain, night sweats, pain with urination, increased urinary frequency, increased urinary urgency, blood in his urine or stool, syncope or a near syncopal episode, recent trauma or falls, bowel incontinence, bladder incontinence, bowel retention, bladder retention, or any other complaints at this time. Onset (ago): week(s) (1) Location: left (great toe) Radiation: non-radiation Severity: mild Severity scale (1-10): 2 Quality: dull Pain Consistency: constant Relieving factors: none Exacerbating factors: none Associated symptoms: denies other symptoms Treatments prior to arrival: none Related Data Previous Rx's Medication Instructions Recorded famotidine 20 mg tablet (Pepcid) 20 mg PO DAILY PRN abdominal 10/14/21 discomfort #30 tabs ondansetron 4 mg disintegrating 4 mg PO Q8H PRN nausea and 10/14/21 tablet vomiting #20 tabs amlodipine 5 mg tablet 5 mg PO DAILY 30 days #30 tabs 02/15/22 cyclobenzaprine 10 mg tablet 10 mg PO BEDTIME PRN muscle spasm 02/15/22 #7 tabs lidocaine 5 % topical patch 1 patch topical DAILY PRN pain #15 02/15/22 ea colchicine 0.6 mg tablet 0.6 mg PO DAILY #14 tabs 03/09/22 prednisone 20 mg tablet 20 mg PO DAILY 7 days #7 tabs 03/09/22 Allergies Allergy/AdvReac Type Severity Reaction Status Date / Time No Known Allergies Allergy Verified 10/14/21 21:35 Review of Systems Constitutional: Constitutional: Reports no additional constitutional complaints, Denies chills, Denies fever(s) and Denies night sweats Eyes: Eyes: Reports no additional eye complaints, Denies blurry vision, Denies change in vision, Denies diplopia, Denies eye discharge, Denies loss of vision and Denies eye pain ENT: Denies dizziness Cardiovascular: Cardiovascular: Reports no additional cardiovascular complaints, Denies chest pain, Denies lightheadedness, Denies Loss of Consciousness and Denies dyspnea Respiratory: Respiratory: Reports no additional respiratory complaints and Denies dyspnea Gastrointestinal: Gastrointestinal: Reports no additional gastrointestinal complaints, Denies abdominal pain, Denies melena, Denies hematochezia, Denies change in bowel habits and Denies change in stool character Genitourinary: Genitourinary: Reports no additional male genitourinary complaints, Denies hematuria, Denies oliguria, Denies difficulty urinating, Denies dysuria, Denies urinary frequency, Denies urinary hesitancy, Denies urinary incontinence and Denies urinary urgency Musculoskeletal: Musculoskeletal: Reports no additional musculoskeletal complaints, Denies numbness and Denies tingling Comments: left great toe pain Neurologic: Denies dizziness, Denies loss of vision, Denies numbness and Denies tingling Psychiatric: Psychiatric: Reports no additional psychiatric complaints Endocrine: Endocrine: Reports no additional endocrine complaints Hematologic/Lymphatic: Hematologic/Lymphatic: Reports no additional hematologic/lymphatic complaints Allergic/Immunologic: Allergic/Immunologic: Reports no additional allergic/immunologic complaints PMFSH Past Medical History Attestation statement: The following information was validated with the patient. Source: old records reviewed and nursing notes reviewed Medical History No pertinent past medical history Social History Social History Smoked in Last 30 Days: No Use of substances other than those prescribed or required for medical reasons: No Advance Directives: No Physical Exam ED Vital Signs: Vital Signs - 24 hr 03/09/22 21:52 03/09/22 22:06 Temperature 97.7 F 97.6 F Pulse Rate 82 84 Respiratory Rate 20 20 Blood Pressure 144/92 H 143/91 H Pulse Oximetry 97 97 Oxygen Delivery Method Room Air Room Air BMI result Body Mass Index 23.1 Const General: cooperative, no acute distress, alert and awake Nutritional Appearance: well nourished Orientation/consciousness: patient oriented x3 Limitations: no limitations [facility] Head: Yes normal to inspection and Yes atraumatic Ears: hearing grossly normal bilaterally and external ears normal General nose exam: Normal external nose present, no nasal discharge noted and no epistaxis Face and sinus: Yes normal facial exam, No abrasion and No laceration Mouth: Normal oral and palatal mucosa present, no drooling and no muffled voice Eyes General: appearance normal, both eyes and all related structures Periorbital: periorbital findings normal Eyelids: Yes eyelids normal Conjunctivae: conjunctivae normal Pupils: Equal, round and reactive pupils present EOM: EOMs intact bilaterally Neck Neck: Yes normal visual inspection, Yes full ROM and Yes no lymphadenopathy Chest Chest palpation & inspection: normal inspection of the chest Resp Effort & Inspection: normal respiratory effort and able to speak in complete sentences Auscultation: clear to auscultation bilaterally Cardio Rate: regular rate Rhythm: regular rhythm GI Inspection: Yes normal to inspection Palpation (GI): Soft to palpation, not firm, nontender, no guarding and Rigid due to palpation Neuro General: patient oriented x3 and moves all extremities Cranial nerves: Yes Equal, round and reactive pupils present Cognition (Neuro): normal cognition Motor exam (neuro): 5/5 motor strength present throughout Sensory Exam: Normal double simultaneous stimulation for sensation Coordination: [id number] test normal Extrem Other: left great toe swelling, minimal redness, and minimal warmth General: Yes full ROM and Yes capillary refill normal Psych Appearance: grossly normal Mental Status: mental status grossly normal Affect: normal affect Attitude: cooperative Thought process: Normal thought process present Thought content: Normal thought content present Insight: Good insight present (Psych) Medical Decision Making Medical Decision Making MDM Narrative: Patient is a 46 year old assigned male at with no reported medical history presenting to the emergency department today with left great toe pain. Patient's physical exam showed minimal swelling to the left great toe, with minimal erythema, and minimal warmth. Patient's clinical presentation is most consistent with gout. I explained my physical exam findings as well as all test results to the patient. I answered all questions asked by the patient. I stressed the importance of the patient taking his medication as prescribed. I stressed the importance of the patient following up with his primary care provider. I stressed the importance of the patient returning to the emergency department immediately if his symptoms were to worsen or if he were to develop any dizziness, shortness of breath, difficulty breathing, chest pain, blurry vision, loss of vision, nausea, vomiting, abdominal pain, fever, chills, back pain, or any other complaints. Patient verbalized agreement and understanding with this treatment plan and discharge. Differential Diagnosis Differential Diagnoses: The differential diagnosis associated with the presentation includes gout Discharge Plan Discharge Clinical Impression: Gout Patient Disposition: Home, Self-Care Instructions: Low Purine Diet (ED), Gout (ED) Additional Instructions: Follow up with your primary care provider. Return to the emergency department immediately if your symptoms worsen or if you develop any dizziness, shortness of breath, difficulty breathing, chest pain, blurry vision, loss of vision, nausea, vomiting, abdominal pain, fever, chills, back pain, or any other complaints. Prescriptions: New colchicine 0.6 mg tablet 0.6 mg PO DAILY Qty: 14 0RF prednisone 20 mg tablet 20 mg PO DAILY 7 Days Qty: 7 0RF No Action famotidine [Pepcid] 20 mg tablet 20 mg PO DAILY PRN (Reason: abdominal discomfort) Qty: 30 0RF ondansetron 4 mg tablet,disintegrating 4 mg PO Q8H PRN (Reason: nausea and vomiting) Qty: 20 0RF cyclobenzaprine 10 mg tablet 10 mg PO BEDTIME PRN (Reason: muscle spasm) Qty: 7 0RF lidocaine 5 % adhesive patch,medicated 1 patch topical DAILY PRN (Reason: pain) Qty: 15 0RF Rx Instructions: leave on most painful area for up to 12 hrs amlodipine 5 mg tablet 5 mg PO DAILY 30 Days Qty: 30 0RF Referrals: [facility] [place] Family [facility] [Provider Group] (Call to establish and follow up with a primary care provider. If you already have a primary care provider, please follow up with them.) [facility] [place] [facility] [Provider Group] (Call to establish and follow up with a primary care provider. If you already have a primary care provider, please follow up with them.) [facility] [place] Primary [facility] [Provider Group] (Call to establish and follow up with a primary care provider. If you already have a primary care provider, please follow up with them.) Print Language: Brazilian
[2022-03-09 22:06] VITALS: BP 143/91; PULSE 84; RESP 20; TEMP 36.4; O2SAT 97
--- NOTE | 2022-03-09 22:11 | PC.NURSE ---
pt c/o pain on the great toe of L foot redness and swelling noted
--- NOTE | 2022-03-09 22:13 | PC.NURSE ---
pt AOx4, calm/cooperative
[2022-03-09] MEDS: Ketorolac Tromethamine 15 MG/ML VIAL IM (22:33)
[2022-03-09] MEDS: predniSONE 20 MG TABLET PO (22:33)
--- NOTE | 2022-03-09 22:36 | PC.NURSE ---
Discharge instructions given and explained, all of pt's questions answered, ambulates safely/independently, no apparent distress, alert and oriented
== END 2022-03-09 22:39 | disposition home or self-care (01) ==
PROVIDERS: Emergency Provider Emergency Medicine
DX: M10.9 Gout, unspecified (principal)
CPT/HCPCS: 96372; 99284; J1885

== ENCOUNTER 2022-05-05 08:53 | Emergency (ER) | payer OTHER, SELFPAY ==
[2022-05-05] VITALS (7 sets, daily range): BP systolic 165–207; BP diastolic 104–118; PULSE 81; RESP 20; TEMP 36.5; O2SAT 98; BMI 23.7
--- NOTE | 2022-05-05 09:18 | ECG_ITS ---
Test Reason : HIGH BP Blood Pressure : / mmHG Vent. Rate : 082 BPM Atrial Rate : 082 BPM P-R Int : 176 ms QRS Dur : 094 ms QT Int : 386 ms P-R-T Axes : 027 -06 -11 degrees QTc Int : 450 ms Normal sinus rhythm Minimal voltage criteria for LVH, may be normal variant ( R in aVL ) Borderline ECG When compared with ECG of 15-FEB-2022 14:06, No significant change was found Referred By: Generic ED Physician Electronically Signed By:Favian Leon
[2022-05-05] MEDS: amLODIPine Besylate 5 MG TABLET PO ×2 (09:32→10:18)
[2022-05-05 09:36] LABS: MANUAL DIFF FLAG NO
--- NOTE | 2022-05-05 09:39 | ED_ITS ---
HPI - General Adult General Chief complaint: General Medical Stated complaint: high BP Time Seen by Provider: 05/05/22 09:21 Source: patient Mode of arrival: ambulatory Limitations: no limitations History of Present Illness HPI narrative: 47 yo male with history of HTN, not currently taking medications who presents to the ER from home for evaluation of elevated BP. He reports waking up today and feeling dizzy with a little bit of blurred vision. He felt off. He took his BP and it was 168/106 at home. He states he ran out of his previously prescribed amlodipine that was prescribed by provider here back in January. He just got his insurance so plan to be able to follow up with his primary care doctor. He reports on arrival to the ER his dizziness and blurred vision are resolved. Denies chest pain or headache. He does not know what his BP usually runs him at home. He only checks it when he feels off. MD complaint: elevated BP w/ dizziness and blurred vision Onset (ago): hour(s) Location: head Radiation: non-radiation Severity: mild Pain Consistency: now resolved Relieving factors: rest Exacerbating factors: none Associated symptoms: denies other symptoms Treatments prior to arrival: none Related Data Previous Rx's Medication Instructions Recorded famotidine 20 mg tablet (Pepcid) 20 mg PO DAILY PRN abdominal 10/14/21 discomfort #30 tabs ondansetron 4 mg disintegrating 4 mg PO Q8H PRN nausea and 10/14/21 tablet vomiting #20 tabs amlodipine 5 mg tablet 5 mg PO DAILY 30 days #30 tabs 02/15/22 cyclobenzaprine 10 mg tablet 10 mg PO BEDTIME PRN muscle spasm 02/15/22 #7 tabs lidocaine 5 % topical patch 1 patch topical DAILY PRN pain #15 02/15/22 ea colchicine 0.6 mg tablet 0.6 mg PO DAILY #14 tabs 03/09/22 prednisone 20 mg tablet 20 mg PO DAILY 7 days #7 tabs 03/09/22 amlodipine 10 mg tablet 10 mg PO DAILY #30 tabs 05/05/22 lisinopril 10 mg tablet 10 mg PO DAILY #30 tabs 05/05/22 Allergies Allergy/AdvReac Type Severity Reaction Status Date / Time No Known Allergies Allergy Verified 10/14/21 21:35 Review of Systems Review of Systems: Yes all other systems are reviewed and are negative PMFSH Past Medical History Medical History No pertinent past medical history Social History Social History Advance Directives: No Advance Directives Information Provided: No Physical Exam ED Vital Signs: Vital Signs - 24 hr 05/05/22 09:15 05/05/22 10:10 05/05/22 11:04 Temperature 97.7 F Pulse Rate 81 Respiratory Rate 20 Blood Pressure 173/111 H 183/110 H 197/105 H Pulse Oximetry 98 Oxygen Delivery Method Room Air 05/05/22 11:57 05/05/22 11:57 05/05/22 12:26 Temperature Pulse Rate Respiratory Rate Blood Pressure 199/118 H 194/112 H 200/104 H Pulse Oximetry Oxygen Delivery Method 05/05/22 12:27 05/05/22 12:30 Temperature Pulse Rate Respiratory Rate Blood Pressure 207/105 H 165/110 H Pulse Oximetry Oxygen Delivery Method BMI result Body Mass Index 23.7 Appearance: Alert. Oriented X3. No acute distress. Eyes: Pupils equal, round and reactive to light. ENT: Pharynx normal. Neck: Normal inspection. Neck supple. CVS: Normal heart rate and rhythm. Pulses normal. Respiratory: No respiratory distress. Breath sounds normal. Abdomen: Soft and nontender. +BS x4 Skin: Skin warm and dry. Normal skin color. Normal skin turgor. No rashes. Extremities: No lower extremity edema. Neuro: Oriented X 3. No motor deficit. No sensory deficit. Course Course Course Narrative: 47 yo male with untreated HTN presents with BP 170/100 - no current sxs but was dizzy earlier. Ordered for 5 mg of norvasc which is what he was prescribed back in January. Basic labs and EKG ordered given reports of dizziness at home. will reassess Reevaluation(s) Reevaluation #1: Labs unremarkable. Blood pressure trended up. Given 20 mg of lisinopril. Initially after this blood pressure trends up to 200/100 however when at a more appropriate size cuff was placed on the patient as well pressure 160/110. He remains asymptomatic. At this time patient is stable for discharge home with re-initiation of oral antihypertensive medications no evidence of hypertensive urgency or emergency at this time. He was given instructions and will follow up with PCP. Medications Administered Discontinued Medications Generic Name Dose Route Start Last Admin Trade Name Karlee PRN Reason Stop Dose Admin Amlodipine Besylate 5 mg 05/05/22 09:21 05/05/22 09:32 Amlodipine Besylate 5 Mg Tablet PO 05/05/22 09:22 5 mg ONCE ONE Administration Protocol Amlodipine Besylate 5 mg 05/05/22 10:11 05/05/22 10:18 Amlodipine Besylate 5 Mg Tablet PO 05/05/22 10:12 5 mg ONCE ONE Administration Protocol Lisinopril 20 mg 05/05/22 11:03 05/05/22 11:06 Lisinopril 20 Mg Tablet PO 05/05/22 11:04 20 mg ONCE ONE Administration Protocol Medical Decision Making Medical Decision Making [facility] Narrative: 47 yo male presenting with elevated BP, transient dizziness and blurred vision. BP 170/100s on arrival. No current symptoms. BP trended up after norvasc, so he was given 20 mg lisinopril. he was asymptomatic. BP 160/110 after a more appropriate size cuff was placed on the patient. He denies any headache, dizziness, vision changes, chest pain. He feels well would like to go home. I expressed the importance of compliance with medication and outpatient follow-up. Expressed understanding with given return precautions. Stable for discharge home. Differential Diagnosis Differential Diagnoses: The differential diagnosis associated with the presentation includes Untreated hypertension, malignant hypertension, hypertensive urgency, hypertensive emergency, Admission/Observation Consideration of admission/observation: Escalation of care including admission/observation considered Initially presented with symptomatic HTN, considered admission but he improved and was asymptomatic. Lab Data [facility] Lab Attestation statement: I reviewed the patient's lab results. Unremarkable lab workup. 05/05/22 09:31 05/05/22 09:31 Labs: Lab Results 05/05/22 05/05/22 05/05/22 Range/Units 09:31 09:31 09:31 WBC 7.6 (4.8-10.8) X10*3/uL RBC 5.03 (4.60-5.80) X10*6/uL Hgb 15.2 (14.0-18.0) g/dl Hct 44.1 (42.0-52.0) % MCV 87.7 (80.0-98.0) fL MCH 30.2 (27.0-33.0) pg MCHC 34.5 (31.0-36.0) g/dl RDW 12.4 (11.0-16.0) % Plt Count 293 (160-400) X10*3/uL MPV 9.8 (9.4-12.4) fL Immature Gran % (Auto) 0.4 (0.0-0.4) % Neut % (Auto) 54.2 (45-73) % Lymph % (Auto) 33.2 (20-40) % Sabine % (Auto) 8.4 (2-11) % Eos % (Auto) 3.3 (0-4) % Baso % (Auto) 0.5 (0-2) % Lymph # (Auto) 2.5 (1.2-4.9) X10*3/uL Sabine # (Auto) 0.6 (0.1-1.2) X10*3/uL Eos # (Auto) 0.3 (0.0-0.4) X10*3/uL Baso # (Auto) 0.0 (0.0-0.2) X10*3/uL Abs Immat Gran (auto) 0.03 (0.00-0.03) X10*3/uL Absolute Neuts (auto) 4.1 (2.0-8.3) x10*3/uL Absolute Nucleated RBC 0.000 (0.0-0.012) X10*3/uL Nucleated RBC % (auto) 0.0 (0.0-0.2) /100WBC Sodium 138 (135-145) mmol/L Potassium 4.2 (3.3-5.1) mmol/L Chloride 104 (96-108) mmol/L Carbon Dioxide 21 L (22-29) mmol/L Anion Gap 17 (12-20) BUN 14 (9-16) mg/dL Creatinine 1.02 (0.5-1.4) mg/dL Estim Creat Clear Calc 107.5 Estimated GFR > 60 Random Glucose 102 (60-115) mg/dL Calcium 9.3 (8.4-10.2) mg/dL Magnesium 1.7 (1.6-2.6) mg/dL Total Bilirubin 0.6 (0.0-1.0) mg/dL Direct Bilirubin < 0.2 (0.0-0.5) mg/dL AST 19 (5-37) U/L ALT 28 (0-40) U/L Alkaline Phosphatase 90 (39-117) U/L Troponin I High Sens < 3.5 (<3.5-35.0) ng/L Total Protein 7.6 (6.5-8.0) g/dL Albumin 4.4 (3.5-5.0) g/dL Independent Interpretation I performed an independent interpretation of an: EKG Interpretation: ekg with normal sinus rhythm, HR 82 bpm, isolated t-wave inversion in lead III only, peaked T waves in V2 only, no ST segment elevations or depressions External Record Review External record reviewed: Outpatient record Tests considered The following testing was considered but not selected: CT head considered given the complaint of dizziness however he denied headache and there was low clinical suspicion for any intracranial acute pathology. Prescription Management I considered prescription management with: Other (anti-hypertensives) Chronic Conditions Patient?s care impacted by: Hypertension Critical Care Time Critical Care Time Critical Care Time: No Discharge Plan Discharge Clinical Impression: Hypertension Patient Disposition: Home, Self-Care Instructions: DASH Eating Plan (ED), Hypertension (ED) Additional Instructions: Your lab workup and EKG today were unremarkable. Your blood pressure was very elevated. It is important that you take the prescribed blood pressure medications as prescribed. Monitor your BP at home several hours after taking the medications. Follow up with your doctor as soon as posisble. If you develop new or worsening symptoms call 911 or come back to the ER for further evaluation. Prescriptions: New amlodipine 10 mg tablet 10 mg PO DAILY Qty: 30 1RF lisinopril 10 mg tablet 10 mg PO DAILY Qty: 30 1RF No Action colchicine 0.6 mg tablet 0.6 mg PO DAILY Qty: 14 0RF prednisone 20 mg tablet 20 mg PO DAILY 7 Days Qty: 7 0RF famotidine [Pepcid] 20 mg tablet 20 mg PO DAILY PRN (Reason: abdominal discomfort) Qty: 30 0RF ondansetron 4 mg tablet,disintegrating 4 mg PO Q8H PRN (Reason: nausea and vomiting) Qty: 20 0RF cyclobenzaprine 10 mg tablet 10 mg PO BEDTIME PRN (Reason: muscle spasm) Qty: 7 0RF lidocaine 5 % adhesive patch,medicated 1 patch topical DAILY PRN (Reason: pain) Qty: 15 0RF Rx Instructions: leave on most painful area for up to 12 hrs amlodipine 5 mg tablet 5 mg PO DAILY 30 Days Qty: 30 0RF Referrals: Monisha Diggs MD [Primary Care Provider] - (HTN)
[2022-05-05 09:44] LABS: Basophils Percent Auto 0.5 % (0-2); Eosinophils Absolute Auto 0.3 X10*3/uL (0.0-0.4); Eosinophils Percent Auto 3.3 % (0-4); Hematocrit 44.1 % (42.0-52.0); Hemoglobin 15.2 g/dl (14.0-18.0); Imm Gran Abs Auto 0.03 X10*3/uL (0.00-0.03); Imm Gran Pct Auto 0.4 % (0.0-0.4); Lymphocytes Absolute Auto 2.5 X10*3/uL (1.2-4.9); Lymphocytes Percent Auto 33.2 % (20-40); Mean Corpuscular HGB Conc 34.5 g/dl (31.0-36.0); Mean Corpuscular Hemoglobin 30.2 pg (27.0-33.0); Mean Corpuscular Volume 87.7 fL (80.0-98.0); Mean Platelet Volume 9.8 fL (9.4-12.4); Monocytes Absolute Auto 0.6 X10*3/uL (0.1-1.2); Monocytes Percent Auto 8.4 % (2-11); Neutrophils Absolute Auto 4.1 x10*3/uL (2.0-8.3); Neutrophils Percent Auto 54.2 % (45-73); Platelet Count 293 X10*3/uL (160-400); Red Blood Count 5.03 X10*6/uL (4.60-5.80); Red Cell Distribution Width 12.4 % (11.0-16.0); White Blood Count 7.6 X10*3/uL (4.8-10.8)
[2022-05-05 09:54] LABS: Alanine Aminotransferase 28 U/L (0-40); Albumin Level 4.4 g/dL (3.5-5.0); Alkaline Phosphatase 90 U/L (39-117); Anion Gap 17 (12-20); Aspartate Amino Transferase 19 U/L (5-37); Bilirubin Direct < 0.2 mg/dL (0.0-0.5); Bilirubin Total 0.6 mg/dL (0.0-1.0); Blood Urea Nitrogen 14 mg/dL (9-16); Calcium 9.3 mg/dL (8.4-10.2); Carbon Dioxide 21 mmol/L (22-29); Chloride 104 mmol/L (96-108); Creatinine Clr Calc Pharmacy 107.5; Estimated Glomerular Filt Rate > 60; Glucose Random 102 mg/dL (60-115); Magnesium 1.7 mg/dL (1.6-2.6); Potassium 4.2 mmol/L (3.3-5.1); Sodium 138 mmol/L (135-145); Total Protein 7.6 g/dL (6.5-8.0)
[2022-05-05 10:07] LABS: Troponin-I High Sensitivity < 3.5 ng/L (<3.5-35.0)
[2022-05-05] MEDS: lisinopriL 20 MG TABLET PO (11:06)
== END 2022-05-05 12:48 | disposition home or self-care (01) ==
PROVIDERS: Physician Assistant; Emergency Provider Emergency Medicine; PCP Internal Medicine
DX: I10 Essential (primary) hypertension (principal)
CPT/HCPCS: 36415; 80048; 80076; 83735; 84484; 85025; 93005; 99283; 99285

== ENCOUNTER 2022-05-07 19:30 | Emergency (ER) | payer OTHER, SELFPAY ==
[2022-05-07 20:52] VITALS: BP 119/79; PULSE 125; RESP 16; TEMP 37.9; O2SAT 99; BMI 23.7
--- NOTE | 2022-05-07 20:52 | ED_ITS ---
HPI - General Adult General Chief complaint: Nausea/Vomiting/Diarrhea <TAM Juarez - Last Filed: 05/07/22 20:57> Stated complaint: high blood pressure/ dizzy <TAM Juarez - Last Filed: 05/07/22 20:57> Time Seen by Provider: 05/07/22 22:10 <TAM Juarez - Last Filed: 05/07/22 20:57> Source: patient <Juan Daniel Marcial MD - Last Filed: 05/08/22 01:22> Mode of arrival: ambulatory <Juan Daniel Marcial MD - Last Filed: 05/08/22 01:22> Limitations: no limitations <Juan Daniel Marcial MD - Last Filed: 05/08/22 01:22> History of Present Illness HPI narrative: Patient with history of mild hypertension care here for body aches and pains, fatigue, malaise, nausea, diarrhea, bilateral flank pain, , dizziness and lightheadedness all of which started this morning suddenly. Symptoms have been worsening ever since. No known sick contacbody aches nausea diarrhea more than 12 times since no vomiting patient abdomen is diffuse feel bloated no recent travel no seafood intake patient noted to be tachycardic on arrival with heart rate of 120 temperature of 100.3 <Juan Daniel Marcial MD - Last Filed: 05/08/22 01:22> Related Data Home medications: Previous Rx's Medication Instructions Recorded famotidine 20 mg tablet (Pepcid) 20 mg PO DAILY PRN abdominal 10/14/21 discomfort #30 tabs ondansetron 4 mg disintegrating 4 mg PO Q8H PRN nausea and 10/14/21 tablet vomiting #20 tabs amlodipine 5 mg tablet 5 mg PO DAILY 30 days #30 tabs 02/15/22 cyclobenzaprine 10 mg tablet 10 mg PO BEDTIME PRN muscle spasm 02/15/22 #7 tabs lidocaine 5 % topical patch 1 patch topical DAILY PRN pain #15 02/15/22 ea colchicine 0.6 mg tablet 0.6 mg PO DAILY #14 tabs 03/09/22 prednisone 20 mg tablet 20 mg PO DAILY 7 days #7 tabs 03/09/22 amlodipine 10 mg tablet 10 mg PO DAILY #30 tabs 03/18/23 lisinopril 10 mg tablet 10 mg PO DAILY #30 tabs 05/05/22 loperamide 2 mg tablet (Imodium 2 mg PO Q6H PRN loose stool #14 05/08/22 A-D) tabs <TAM Juarez - Last Filed: 05/07/22 20:57> Allergies/adverse reactions: Allergies Allergy/AdvReac Type Severity Reaction Status Date / Time No Known Allergies Allergy Verified 10/14/21 21:35 <TAM Juarez - Last Filed: 05/07/22 20:57> Review of Systems Review of Systems: Yes all other systems are reviewed and are negative <Juan Daniel Marcial MD - Last Filed: 05/08/22 01:22> [facility] Past Medical History Medical History: Medical History No pertinent past medical history <TAM Juarez - Last Filed: 05/07/22 20:57> Social History Social History: Social History Smoked in Last 30 Days: No Use of substances other than those prescribed or required for medical reasons: No Advance Directives: No Advance Directives Information Provided: Yes <TAM Juarez - Last Filed: 05/07/22 20:57> Physical Exam ED Vital Signs: Vital Signs - 24 hr 05/07/22 20:52 05/07/22 23:32 05/07/22 23:32 Temperature 100.3 F Pulse Rate 125 H 94 103 H Respiratory Rate 16 Blood Pressure 119/79 122/81 119/75 Pulse Oximetry 99 Oxygen Delivery Method Room Air 05/07/22 23:33 Temperature Pulse Rate 106 H Respiratory Rate Blood Pressure 126/80 Pulse Oximetry Oxygen Delivery Method BMI result Body Mass Index 23.7 <TAM Juarez - Last Filed: 05/07/22 20:57> Vital Signs - 24 hr 05/07/22 20:52 05/07/22 23:32 05/07/22 23:32 Temperature 100.3 F Pulse Rate 125 H 94 103 H Respiratory Rate 16 Blood Pressure 119/79 122/81 119/75 Pulse Oximetry 99 Oxygen Delivery Method Room Air 05/07/22 23:33 Temperature Pulse Rate 106 H Respiratory Rate Blood Pressure 126/80 Pulse Oximetry Oxygen Delivery Method BMI result Body Mass Index 23.7 <Juan Daniel Marcial MD - Last Filed: 05/08/22 01:22> Appearance: Alert. Oriented X3. No acute distress. Eyes: No pallor or icterus ENT: Pharynx normal. Oral Mucosa moist Neck: Normal inspection. Neck supple. CVS: Normal heart rate and rhythm. Pulses normal. Respiratory: No respiratory distress. Equal air entry bilateral, no wheezing/rales/rhonchi Abdomen: Soft mild diffuse tenderness no rebound tenderness or guarding Bowel sounds are present, no mass palpable, no CVA tenderness Skin: Skin warm and dry. Normal skin color. Normal skin turgor. Extremities: No lower extremity edema. No calf tenderness Neuro: Oriented X 3. No motor deficit. <Juan Daniel Marcial MD - Last Filed: 05/08/22 01:22> Course Course Course Narrative: This is an RME: Additional HPI, ROS, PE not included below will be deferred to primary provider. 47-year-old [facility] of body aches and pains, fatigue, malaise, nausea, diarrhea, bilateral flank pain, sharp stabbing chest pain, dizziness and lightheadedness all of which started this morning suddenly. Symptoms have been worsening ever since. No known sick contacts. Denies shortness of breath, vision changes, head trauma, neck pain, changes in bowel habits or urination Physical exam with rapid regular rhythm likely sinus tachycardia heart rate around 120. Oral temperature 100.3 degrees F Tylenol order. Neuro nonfocal cerebellar intact. NIHSS 0 Plan at this time cardiac workup viral testing. However I suspect viral illness. <TAM Juarez - Last Filed: 05/07/22 20:57> Medications Administered Discontinued Medications Generic Name Dose Route Start Last Admin Trade Name Jacobq PRN Reason Stop Dose Admin Acetaminophen 975 mg 05/07/22 20:58 05/07/22 21:15 Acetaminophen 325 Mg Tablet PO 05/07/22 20:59 975 mg ONCE ONE Administration Dicyclomine HCl 20 mg 05/07/22 22:15 05/07/22 22:49 Dicyclomine Hcl 10 Mg Capsule PO 05/07/22 22:16 20 mg ONCE ONE Administration Loperamide HCl 4 mg 05/07/22 22:15 05/07/22 22:48 Loperamide Hcl 2 Mg Capsule PO 05/07/22 22:16 4 mg ONCE ONE Administration <TAM Juarez - Last Filed: 05/07/22 20:57> Medications Administered Discontinued Medications Generic Name Dose Route Start Last Admin Trade Name Karlee PRN Reason Stop Dose Admin Acetaminophen 975 mg 05/07/22 20:58 05/07/22 21:15 Acetaminophen 325 Mg Tablet PO 05/07/22 20:59 975 mg ONCE ONE Administration Dicyclomine HCl 20 mg 05/07/22 22:15 05/07/22 22:49 Dicyclomine Hcl 10 Mg Capsule PO 05/07/22 22:16 20 mg ONCE ONE Administration Loperamide HCl 4 mg 05/07/22 22:15 05/07/22 22:48 Loperamide Hcl 2 Mg Capsule PO 05/07/22 22:16 4 mg ONCE ONE Administration <Juan Daniel Marcial MD - Last Filed: 05/08/22 01:22> Medical Decision Making Medical Decision Making MDM Narrative: Patient with gastroenteritis felt much better after Imodium no bowel movement in the ER took p.o. fluids feels much better discharge patient home on p.o. Imodium and fluids <Juan Daniel Marcial MD - Last Filed: 05/08/22 01:22> Lab Data MDM Lab Attestation statement: I reviewed the patient's lab results. <Juan Daniel Marcial MD - Last Filed: 05/08/22 01:22> Result Diagrams: 05/07/22 21:21 05/07/22 21:21 <TAM Juarez - Last Filed: 05/07/22 20:57> Labs: Lab Results 05/07/22 05/07/22 05/07/22 Range/Units 21:21 21:21 21:21 WBC 14.2 H (4.8-10.8) X10*3/uL RBC 5.32 (4.60-5.80) X10*6/uL Hgb 15.9 (14.0-18.0) g/dl Hct 47.0 (42.0-52.0) % MCV 88.3 (80.0-98.0) fL MCH 29.9 (27.0-33.0) pg MCHC 33.8 (31.0-36.0) g/dl RDW 12.5 (11.0-16.0) % Plt Count 300 (160-400) X10*3/uL MPV 10.1 (9.4-12.4) fL Immature Gran % (Auto) 0.5 H (0.0-0.4) % Neut % (Auto) 89.2 H (45-73) % Lymph % (Auto) 4.8 L (20-40) % [place] % (Auto) 4.5 (2-11) % Eos % (Auto) 0.8 (0-4) % Baso % (Auto) 0.2 (0-2) % Lymph # (Auto) 0.7 L (1.2-4.9) X10*3/uL [place] # (Auto) 0.6 (0.1-1.2) X10*3/uL Eos # (Auto) 0.1 (0.0-0.4) X10*3/uL Baso # (Auto) 0.0 (0.0-0.2) X10*3/uL Abs Immat Gran (auto) 0.07 H (0.00-0.03) X10*3/uL Absolute Neuts (auto) 12.6 H (2.0-8.3) x10*3/uL Absolute Nucleated RBC 0.000 (0.0-0.012) X10*3/uL Nucleated RBC % (auto) 0.0 (0.0-0.2) /100WBC Sodium 133 L (135-145) mmol/L Potassium 4.3 (3.3-5.1) mmol/L Chloride 103 (96-108) mmol/L Carbon Dioxide 15 L (22-29) mmol/L Anion Gap 19 (12-20) BUN 21 H (9-16) mg/dL Creatinine 1.23 (0.5-1.4) mg/dL Estim Creat Clear Calc 89.1 Estimated GFR > 60 Random Glucose 121 H (60-115) mg/dL Calcium 9.2 (8.4-10.2) mg/dL Total Bilirubin 1.2 H (0.0-1.0) mg/dL AST 25 (5-37) U/L ALT 29 (0-40) U/L Alkaline Phosphatase 92 (39-117) U/L Troponin I High Sens (<3.5-35.0) ng/L Total Protein 8.1 H (6.5-8.0) g/dL Albumin 4.6 (3.5-5.0) g/dL Lipase 26 (8-78) U/L COVID-19 ([facility]OS) (Negative) COVID-19 Clin Com Influenza Type A (RAFAEL) Negative (Negative) Influenza Type B (RAFAEL) Negative (Negative) Influenza A & B Note See Note 05/07/22 05/07/22 Range/Units 21:21 21:21 WBC (4.8-10.8) X10*3/uL RBC (4.60-5.80) X10*6/uL Hgb (14.0-18.0) g/dl Hct (42.0-52.0) % MCV (80.0-98.0) fL MCH (27.0-33.0) pg MCHC (31.0-36.0) g/dl RDW (11.0-16.0) % Plt Count (160-400) X10*3/uL MPV (9.4-12.4) fL Immature Gran % (Auto) (0.0-0.4) % Neut % (Auto) (45-73) % Lymph % (Auto) (20-40) % [place] % (Auto) (2-11) % Eos % (Auto) (0-4) % Baso % (Auto) (0-2) % Lymph # (Auto) (1.2-4.9) X10*3/uL [place] # (Auto) (0.1-1.2) X10*3/uL Eos # (Auto) (0.0-0.4) X10*3/uL Baso # (Auto) (0.0-0.2) X10*3/uL Abs Immat Gran (auto) (0.00-0.03) X10*3/uL Absolute Neuts (auto) (2.0-8.3) x10*3/uL Absolute Nucleated RBC (0.0-0.012) X10*3/uL Nucleated RBC % (auto) (0.0-0.2) /100WBC Sodium (135-145) mmol/L Potassium (3.3-5.1) mmol/L Chloride (96-108) mmol/L Carbon Dioxide (22-29) mmol/L Anion Gap (12-20) BUN (9-16) mg/dL Creatinine (0.5-1.4) mg/dL Estim Creat Clear Calc Estimated GFR Random Glucose (60-115) mg/dL Calcium (8.4-10.2) mg/dL Total Bilirubin (0.0-1.0) mg/dL AST (5-37) U/L ALT (0-40) U/L Alkaline Phosphatase (39-117) U/L Troponin I High Sens < 3.5 (<3.5-35.0) ng/L Total Protein (6.5-8.0) g/dL Albumin (3.5-5.0) g/dL Lipase (8-78) U/L COVID-19 ([facility]OS) Negative (Negative) COVID-19 Clin Com See Note Influenza Type A (RAFAEL) (Negative) Influenza Type B (RAFAEL) (Negative) Influenza A & B Note <TAM Juarez - Last Filed: 05/07/22 20:57> Lab Results 05/07/22 05/07/22 05/07/22 Range/Units 21:21 21:21 21:21 WBC 14.2 H (4.8-10.8) X10*3/uL RBC 5.32 (4.60-5.80) X10*6/uL Hgb 15.9 (14.0-18.0) g/dl Hct 47.0 (42.0-52.0) % MCV 88.3 (80.0-98.0) fL MCH 29.9 (27.0-33.0) pg MCHC 33.8 (31.0-36.0) g/dl RDW 12.5 (11.0-16.0) % Plt Count 300 (160-400) X10*3/uL MPV 10.1 (9.4-12.4) fL Immature Gran % (Auto) 0.5 H (0.0-0.4) % Neut % (Auto) 89.2 H (45-73) % Lymph % (Auto) 4.8 L (20-40) % [place] % (Auto) 4.5 (2-11) % Eos % (Auto) 0.8 (0-4) % Baso % (Auto) 0.2 (0-2) % Lymph # (Auto) 0.7 L (1.2-4.9) X10*3/uL [place] # (Auto) 0.6 (0.1-1.2) X10*3/uL Eos # (Auto) 0.1 (0.0-0.4) X10*3/uL Baso # (Auto) 0.0 (0.0-0.2) X10*3/uL Abs Immat Gran (auto) 0.07 H (0.00-0.03) X10*3/uL Absolute Neuts (auto) 12.6 H (2.0-8.3) x10*3/uL Absolute Nucleated RBC 0.000 (0.0-0.012) X10*3/uL Nucleated RBC % (auto) 0.0 (0.0-0.2) /100WBC Sodium 133 L (135-145) mmol/L Potassium 4.3 (3.3-5.1) mmol/L Chloride 103 (96-108) mmol/L Carbon Dioxide 15 L (22-29) mmol/L Anion Gap 19 (12-20) BUN 21 H (9-16) mg/dL Creatinine 1.23 (0.5-1.4) mg/dL Estim Creat Clear Calc 89.1 Estimated GFR > 60 Random Glucose 121 H (60-115) mg/dL Calcium 9.2 (8.4-10.2) mg/dL Total Bilirubin 1.2 H (0.0-1.0) mg/dL AST 25 (5-37) U/L ALT 29 (0-40) U/L Alkaline Phosphatase 92 (39-117) U/L Troponin I High Sens (<3.5-35.0) ng/L Total Protein 8.1 H (6.5-8.0) g/dL Albumin 4.6 (3.5-5.0) g/dL Lipase 26 (8-78) U/L COVID-19 ([facility]OS) (Negative) COVID-19 Clin Com Influenza Type A (RAFAEL) Negative (Negative) Influenza Type B (RAFAEL) Negative (Negative) Influenza A & B Note See Note 05/07/22 05/07/22 Range/Units 21:21 21:21 WBC (4.8-10.8) X10*3/uL RBC (4.60-5.80) X10*6/uL Hgb (14.0-18.0) g/dl Hct (42.0-52.0) % MCV (80.0-98.0) fL MCH (27.0-33.0) pg MCHC (31.0-36.0) g/dl RDW (11.0-16.0) % Plt Count (160-400) X10*3/uL MPV (9.4-12.4) fL Immature Gran % (Auto) (0.0-0.4) % Neut % (Auto) (45-73) % Lymph % (Auto) (20-40) % [place] % (Auto) (2-11) % Eos % (Auto) (0-4) % Baso % (Auto) (0-2) % Lymph # (Auto) (1.2-4.9) X10*3/uL [place] # (Auto) (0.1-1.2) X10*3/uL Eos # (Auto) (0.0-0.4) X10*3/uL Baso # (Auto) (0.0-0.2) X10*3/uL Abs Immat Gran (auto) (0.00-0.03) X10*3/uL Absolute Neuts (auto) (2.0-8.3) x10*3/uL Absolute Nucleated RBC (0.0-0.012) X10*3/uL Nucleated RBC % (auto) (0.0-0.2) /100WBC Sodium (135-145) mmol/L Potassium (3.3-5.1) mmol/L Chloride (96-108) mmol/L Carbon Dioxide (22-29) mmol/L Anion Gap (12-20) BUN (9-16) mg/dL Creatinine (0.5-1.4) mg/dL Estim Creat Clear Calc Estimated GFR Random Glucose (60-115) mg/dL Calcium (8.4-10.2) mg/dL Total Bilirubin (0.0-1.0) mg/dL AST (5-37) U/L ALT (0-40) U/L Alkaline Phosphatase (39-117) U/L Troponin I High Sens < 3.5 (<3.5-35.0) ng/L Total Protein (6.5-8.0) g/dL Albumin (3.5-5.0) g/dL Lipase (8-78) U/L COVID-19 ([facility]) Negative (Negative) COVID-19 Clin Com See Note Influenza Type A (RAFAEL) (Negative) Influenza Type B (RAFAEL) (Negative) Influenza A & B Note <Juan Daniel Marcial MD - Last Filed: 05/08/22 01:22> Discharge Plan Discharge Clinical Impression: Gastroenteritis <TAM Juarez - Last Filed: 05/07/22 20:57> Patient Disposition: Home, Self-Care <TAM Juarez - Last Filed: 05/07/22 20:57> Instructions: Acute Diarrhea (ED) <TAM Juarez - Last Filed: 05/07/22 20:57> Additional Instructions: Drink plenty of fluid Imodium for diarrhea as prescribed Report to ER if worsening of the pain <TAM Juarez - Last Filed: 05/07/22 20:57> Prescriptions: New loperamide [Imodium A-D] 2 mg tablet 2 mg PO Q6H PRN (Reason: loose stool) Qty: 14 0RF No Action colchicine 0.6 mg tablet 0.6 mg PO DAILY Qty: 14 0RF prednisone 20 mg tablet 20 mg PO DAILY 7 Days Qty: 7 0RF famotidine [Pepcid] 20 mg tablet 20 mg PO DAILY PRN (Reason: abdominal discomfort) Qty: 30 0RF ondansetron 4 mg tablet,disintegrating 4 mg PO Q8H PRN (Reason: nausea and vomiting) Qty: 20 0RF cyclobenzaprine 10 mg tablet 10 mg PO BEDTIME PRN (Reason: muscle spasm) Qty: 7 0RF lidocaine 5 % adhesive patch,medicated 1 patch topical DAILY PRN (Reason: pain) Qty: 15 0RF Rx Instructions: leave on most painful area for up to 12 hrs amlodipine 5 mg tablet 5 mg PO DAILY 30 Days Qty: 30 0RF amlodipine 10 mg tablet 10 mg PO DAILY Qty: 30 1RF lisinopril 10 mg tablet 10 mg PO DAILY Qty: 30 1RF <TAM Juarez - Last Filed: 05/07/22 20:57> Interventions: ED Discharge Assessment Last Done: 05/08/22 00:34 <TAM Juarez - Last Filed: 05/07/22 20:57> Discharge Date/Time: 05/08/22 00:35 <TAM Juarez - Last Filed: 05/07/22 20:57>
--- NOTE | 2022-05-07 20:54 | ECG_ITS ---
Test Reason : PAIN Blood Pressure : / mmHG Vent. Rate : 119 BPM Atrial Rate : 119 BPM P-R Int : 150 ms QRS Dur : 090 ms QT Int : 304 ms P-R-T Axes : 052 018 002 degrees QTc Int : 427 ms Sinus tachycardia Minimal voltage criteria for LVH, may be normal variant ( R in aVL ) Borderline ECG When compared with ECG of 05-MAY-2022 09:27, No significant change was found Referred By: Hali Haywood Electronically Signed By:SHERRY DALLAS MD
[2022-05-07] MEDS: Acetaminophen 325 MG TABLET 975 MG PO (21:15)
[2022-05-07 21:28] LABS: MANUAL DIFF FLAG NO
[2022-05-07 21:29] LABS: Basophils Percent Auto 0.2 % (0-2); Eosinophils Absolute Auto 0.1 X10*3/uL (0.0-0.4); Eosinophils Percent Auto 0.8 % (0-4); Hemoglobin 15.9 g/dl (14.0-18.0); Imm Gran Abs Auto 0.07 X10*3/uL (0.00-0.03); Imm Gran Pct Auto 0.5 % (0.0-0.4); Lymphocytes Absolute Auto 0.7 X10*3/uL (1.2-4.9); Lymphocytes Percent Auto 4.8 % (20-40); Mean Corpuscular HGB Conc 33.8 g/dl (31.0-36.0); Mean Corpuscular Hemoglobin 29.9 pg (27.0-33.0); Mean Corpuscular Volume 88.3 fL (80.0-98.0); Mean Platelet Volume 10.1 fL (9.4-12.4); Monocytes Absolute Auto 0.6 X10*3/uL (0.1-1.2); Monocytes Percent Auto 4.5 % (2-11); Neutrophils Absolute Auto 12.6 x10*3/uL (2.0-8.3); Neutrophils Percent Auto 89.2 % (45-73); Platelet Count 300 X10*3/uL (160-400); Red Blood Count 5.32 X10*6/uL (4.60-5.80); Red Cell Distribution Width 12.5 % (11.0-16.0); White Blood Count 14.2 X10*3/uL (4.8-10.8)
[2022-05-07 21:44] LABS: COVID-19 Test Negative (Negative); IDNOW Serial# 08D9AD1C; IDNOW Serial# BCCEAD1C; Influenza A Negative (Negative); Influenza B2 Negative (Negative)
[2022-05-07 21:47] LABS: Alanine Aminotransferase 29 U/L (0-40); Albumin Level 4.6 g/dL (3.5-5.0); Alkaline Phosphatase 92 U/L (39-117); Anion Gap 19 (12-20); Aspartate Amino Transferase 25 U/L (5-37); Bilirubin Total 1.2 mg/dL (0.0-1.0); Blood Urea Nitrogen 21 mg/dL (9-16); Calcium 9.2 mg/dL (8.4-10.2); Carbon Dioxide 15 mmol/L (22-29); Chloride 103 mmol/L (96-108); Creatinine Clr Calc Pharmacy 89.1; Estimated Glomerular Filt Rate > 60; Glucose Random 121 mg/dL (60-115); Lipase 26 U/L (8-78); Potassium 4.3 mmol/L (3.3-5.1); Sodium 133 mmol/L (135-145); Total Protein 8.1 g/dL (6.5-8.0)
[2022-05-07 21:58] LABS: Troponin-I High Sensitivity < 3.5 ng/L (<3.5-35.0)
[2022-05-07] MEDS: Loperamide HCl 2 MG CAPSULE 4 MG PO (22:48)
[2022-05-07] MEDS: Dicyclomine HCl 10 MG CAPSULE 20 MG PO (22:49)
--- NOTE | 2022-05-07 23:14 | PC.NURSE ---
Assumed care at 23:00pm, no sob or chest pain, pt reports feeling better and n/v improved.
[2022-05-07 23:32] VITALS: BP 119/75; BP 122/81; PULSE 103; PULSE 94
[2022-05-07 23:33] VITALS: BP 126/80; PULSE 106
--- NOTE | 2022-05-08 00:25 | PC.NURSE ---
pt tolerated po challenge well, awaiting for discharge.
--- NOTE | 2022-05-08 00:34 | PC.NURSE ---
Reviewed discharge instructions with pt, pt verbalized understanding, no sign of distress at discharge.
== END 2022-05-08 00:35 | disposition home or self-care (01) ==
PROVIDERS: Physician Assistant; Emergency Provider Internal Medicine; PCP Internal Medicine
DX: K52.9 Noninfective gastroenteritis and colitis, unspecified (principal); R42 Dizziness and giddiness; R11.0 Nausea; R10.9 Unspecified abdominal pain; I10 Essential (primary) hypertension; Z20.822 Contact with and (suspected) exposure to COVID-19
CPT/HCPCS: 36415; 80053; 83690; 84484; 85025; 87502; 87635; 93005; 99283; 99285

== ENCOUNTER 2022-08-12 02:49 | Emergency (ER) | payer OTHER, SELFPAY ==
--- NOTE | ~2022-08-12 | XR_ITS ---
EXAMINATION: XR CHEST CLINICAL INFORMATION: Chest pain COMPARISON: None available. TECHNIQUE: Frontal view of the chest was obtained. FINDINGS: No significant abnormality is noted involving the heart, lungs, mediastinum, bony thorax or soft tissues. XR/XR chest 1V IMPRESSION: Unremarkable chest examination.
[2022-08-12 03:12] VITALS: BP 161/103; PULSE 83; RESP 20; TEMP 36.8; O2SAT 97; BMI 24.9
--- NOTE | 2022-08-12 03:16 | ECG_ITS ---
Test Reason : CHEST PAIN Blood Pressure : / mmHG Vent. Rate : 077 BPM Atrial Rate : 077 BPM P-R Int : 196 ms QRS Dur : 100 ms QT Int : 380 ms P-R-T Axes : 032 -15 -17 degrees QTc Int : 430 ms Normal sinus rhythm Possible Left atrial enlargement Incomplete right bundle branch block Minimal voltage criteria for LVH, may be normal variant ( R in aVL ) Borderline ECG When compared with ECG of 07-MAY-2022 21:16, Vent. rate has decreased BY 42 BPM Referred By: Generic ED Physician Electronically Signed By:SHAW CORTEZ
[2022-08-12 03:32] LABS: MANUAL DIFF FLAG NO
[2022-08-12 03:33] LABS: Basophils Percent Auto 0.4 % (0-2); Eosinophils Absolute Auto 0.4 X10*3/uL (0.0-0.4); Eosinophils Percent Auto 5.3 % (0-4); Hematocrit 42.8 % (42.0-52.0); Hemoglobin 14.9 g/dl (14.0-18.0); Imm Gran Abs Auto 0.02 X10*3/uL (0.00-0.03); Imm Gran Pct Auto 0.3 % (0.0-0.4); Lymphocytes Absolute Auto 2.6 X10*3/uL (1.2-4.9); Mean Corpuscular HGB Conc 34.8 g/dl (31.0-36.0); Mean Corpuscular Hemoglobin 30.3 pg (27.0-33.0); Mean Corpuscular Volume 87.2 fL (80.0-98.0); Monocytes Absolute Auto 0.8 X10*3/uL (0.1-1.2); Monocytes Percent Auto 11.5 % (2-11); Neutrophils Absolute Auto 3.4 x10*3/uL (2.0-8.3); Neutrophils Percent Auto 46.5 % (45-73); Platelet Count 294 X10*3/uL (160-400); Red Blood Count 4.91 X10*6/uL (4.60-5.80); Red Cell Distribution Width 12.4 % (11.0-16.0); White Blood Count 7.3 X10*3/uL (4.8-10.8)
[2022-08-12 03:46] LABS: Anion Gap 14 (12-20); Blood Urea Nitrogen 14 mg/dL (9-16); Calcium 9.4 mg/dL (8.4-10.2); Carbon Dioxide 23 mmol/L (22-29); Chloride 104 mmol/L (96-108); Creatinine Clr Calc Pharmacy 135.4; Estimated Glomerular Filt Rate > 60; Glucose Random 114 mg/dL (60-115); Potassium 3.6 mmol/L (3.3-5.1); Sodium 137 mmol/L (135-145)
[2022-08-12 03:56] LABS: Troponin-I High Sensitivity < 2.7 ng/L (<3.5-35.0)
--- NOTE | 2022-08-12 04:25 | ED_ITS ---
HPI - Chest Pain General Chief Complaint: Chest Pain Stated Complaint: headache, weakness Time Seen by Provider: 08/12/22 03:29 History of Present Illness HPI narrative: Patient is a 47-year-old male presents today with having history of hypertension high cholesterol. He had chest pain that is over the left chest lasts about a minute. Not associated with any shortness of breath or diaphoresis after the after eating a [place]. No history diabetes. Positive history of hypertension. Positive history of high cholesterol. No smoking. Never had a heart attack no family history of heart attack. Patient's symptoms not associated with any shortness of breath there is no diaphoresis. Patient had something similar a few months ago had an EKG done in the emergency department. Related Data Previous Rx's Medication Instructions Recorded famotidine 20 mg tablet (Pepcid) 20 mg PO DAILY PRN abdominal 10/14/21 discomfort #30 tabs ondansetron 4 mg disintegrating 4 mg PO Q8H PRN nausea and 10/14/21 tablet vomiting #20 tabs amlodipine 5 mg tablet 5 mg PO DAILY 30 days #30 tabs 02/15/22 cyclobenzaprine 10 mg tablet 10 mg PO BEDTIME PRN muscle spasm 02/15/22 #7 tabs lidocaine 5 % topical patch 1 patch topical DAILY PRN pain #15 02/15/22 ea colchicine 0.6 mg tablet 0.6 mg PO DAILY #14 tabs 03/09/22 prednisone 20 mg tablet 20 mg PO DAILY 7 days #7 tabs 03/09/22 amlodipine 10 mg tablet 10 mg PO DAILY #30 tabs 05/05/22 lisinopril 10 mg tablet 10 mg PO DAILY #30 tabs 05/05/22 loperamide 2 mg tablet (Imodium 2 mg PO Q6H PRN loose stool #14 05/08/22 A-D) tabs Allergies Allergy/AdvReac Type Severity Reaction Status Date / Time No Known Allergies Allergy Verified 10/14/21 21:35 Review of Systems Review of Systems: Yes all other systems are reviewed and are negative [facility] Past Medical History Attestation statement: The following information was validated with the patient. Medical History No pertinent past medical history Social History Social History Advance Directives: No Advance Directives Information Provided: Yes Physical Exam Vital Signs: Vital Signs: Last Vital Signs Temp 98.2 F 08/12/22 03:12 Pulse 83 08/12/22 03:12 Resp 20 08/12/22 03:12 BP 161/103 H 08/12/22 03:12 Pulse Ox 97 08/12/22 03:12 O2 Del Method Room Air 08/12/22 03:12 BMI result Body Mass Index 24.9 Appearance: Alert. Oriented X3. No acute distress. Eyes: Pupils equal, round and reactive to light. ENT: Pharynx normal. Neck: Normal inspection. Neck supple. No lymph nodes noted. No crepitus CVS: Normal heart rate and rhythm. Pulses normal. Normal S1 and S2 Respiratory: No respiratory distress. Breath sounds normal. No Wheezing. No rales Abdomen: Soft and nontender. No rigidity. No distention. good BS x4 Skin: Skin warm and dry. Normal skin color. Normal skin turgor. Extremities: No lower extremity edema. Neurovascular intact to all extremities. No Lacerations. No Rash Neuro: Oriented X 3. No motor deficit. No sensory deficit. Moving all ext ermities. No slurred speech Medical Decision Making Medical Decision Making [facility] Narrative: My interpretation of patient's EKG showed a sinus pattern heart rate is 75 CA QRS QT was in normal limits there is T-wave inversion over 3 in AVF. This finding is old. When compared to her previous EKG. Patient's chest pain atypical for ACS does have 2 risk factor pain only lasts for 1 minute not assoc iated with shortness breath or diaphoresis. Patient's cardiac enzyme was negative. Is well-appearing. Symptom free. His chest x-ray showed no pneumonia no pneumothorax. Will discharge patient home Lab Data [facility] Lab Attestation statement: I reviewed the patient's lab results. 08/12/22 03:30 08/12/22 03:30 Labs: Lab Results 08/12/22 08/12/22 08/12/22 Range/Units 03:27 03:30 03:30 WBC 7.3 (4.8-10.8) X10*3/uL RBC 4.91 (4.60-5.80) X10*6/uL Hgb 14.9 (14.0-18.0) g/dl Hct 42.8 (42.0-52.0) % MCV 87.2 (80.0-98.0) fL MCH 30.3 (27.0-33.0) pg MCHC 34.8 (31.0-36.0) g/dl RDW 12.4 (11.0-16.0) % Plt Count 294 (160-400) X10*3/uL MPV 10.0 (9.4-12.4) fL Immature Gran % (Auto) 0.3 (0.0-0.4) % Neut % (Auto) 46.5 (45-73) % Lymph % (Auto) 36.0 (20-40) % [place] % (Auto) 11.5 H (2-11) % Eos % (Auto) 5.3 H (0-4) % Baso % (Auto) 0.4 (0-2) % Lymph # (Auto) 2.6 (1.2-4.9) X10*3/uL [place] # (Auto) 0.8 (0.1-1.2) X10*3/uL Eos # (Auto) 0.4 (0.0-0.4) X10*3/uL Baso # (Auto) 0.0 (0.0-0.2) X10*3/uL Abs Immat Gran (auto) 0.02 (0.00-0.03) X10*3/uL Absolute Neuts (auto) 3.4 (2.0-8.3) x10*3/uL Absolute Nucleated RBC 0.000 (0.0-0.012) X10*3/uL Nucleated RBC % (auto) 0.0 (0.0-0.2) /100WBC Sodium 137 (135-145) mmol/L Potassium 3.6 (3.3-5.1) mmol/L Chloride 104 (96-108) mmol/L Carbon Dioxide 23 (22-29) mmol/L Anion Gap 14 (12-20) BUN 14 (9-16) mg/dL Creatinine 0.81 (0.5-1.4) mg/dL Estim Creat Clear Calc 135.4 Estimated GFR > 60 Random Glucose 114 (60-115) mg/dL Calcium 9.4 (8.4-10.2) mg/dL Troponin I High Sens < 2.7 (<3.5-35.0) ng/L Independent Interpretation I performed an independent interpretation of an: EKG Interpretation: Sinus rhythm heart rate is 75 p.r. his QT within normal limits is T-wave inversion over this inferiorly Radiology Impression Discussion of test interpretation with radiology: I have reviewed the radiologist's reading. Chronic Conditions Patient?s care impacted by: Hypertension Discharge Plan Discharge Clinical Impression: Chest pain Patient Disposition: Home, Self-Care Instructions: Chest Pain (DC) Prescriptions: No Action colchicine 0.6 mg tablet 0.6 mg PO DAILY Qty: 14 0RF prednisone 20 mg tablet 20 mg PO DAILY 7 Days Qty: 7 0RF famotidine [Pepcid] 20 mg tablet 20 mg PO DAILY PRN (Reason: abdominal discomfort) Qty: 30 0RF ondansetron 4 mg tablet,disintegrating 4 mg PO Q8H PRN (Reason: nausea and vomiting) Qty: 20 0RF cyclobenzaprine 10 mg tablet 10 mg PO BEDTIME PRN (Reason: muscle spasm) Qty: 7 0RF lidocaine 5 % adhesive patch,medicated 1 patch topical DAILY PRN (Reason: pain) Qty: 15 0RF Rx Instructions: leave on most painful area for up to 12 hrs amlodipine 5 mg tablet 5 mg PO DAILY 30 Days Qty: 30 0RF amlodipine 10 mg tablet 10 mg PO DAILY Qty: 30 1RF lisinopril 10 mg tablet 10 mg PO DAILY Qty: 30 1RF loperamide [Imodium A-D] 2 mg tablet 2 mg PO Q6H PRN (Reason: loose stool) Qty: 14 0RF Referrals: Physician,Unknown J [Primary Care Provider] - 2 days Favian Leon MD [Physician] - 2 days
== END 2022-08-12 04:47 | disposition home or self-care (01) ==
PROVIDERS: Emergency Provider Emergency Medicine Emergency Medical Services
DX: R07.89 Other chest pain (principal); R51.9 Headache, unspecified; I10 Essential (primary) hypertension; Z79.899 Other long term (current) drug therapy
CPT/HCPCS: 36415; 71045; 80048; 84484; 85025; 93005; 99284

== ENCOUNTER 2022-09-09 10:33 | Emergency (ER) | payer OTHER, SELFPAY ==
--- NOTE | ~2022-09-09 | CT_ITS ---
EXAMINATION: CT ANGIOGRAM HEAD CT ANGIOGRAM NECK CLINICAL INFORMATION: Reason for Exam stroke COMPARISON: None. TECHNIQUE: Initial noncontrast baseball inspector imaging of the head and neck was performed. Noncontrast head CT was also performed. Test bolus sequences followed by intravenous administration 70 mL of Omnipaque 350. Helical imaging was performed in the axial plane from the aortic arch to the skull vertex. Delayed postcontrast imaging of the head was also performed. The data was processed at the product/device technologist's workstation for generation of MIP sequences. Angled MIPs and volume rendered reformatted images were also generated at an offline 3D workstation. Stenoses are assessed in accordance with NASCET criteria unless otherwise indicated. DLP: 1593.99 mGy-cm This CT examination was performed using dose optimization techniques as appropriate, variously including the following: *Automated exposure control. *Adjustment of mA and/or kV according to patient size (this includes techniques or standardized protocols for targeted exams where dose is matched to indication/reason for exam; i.e. extremities or head). *Use of iterative reconstruction technique. FINDINGS: CT Head: There is no evidence of acute intracranial hemorrhage or edematous territorial infarction. There is no abnormal attenuation within the brain parenchyma. [place]-white matter differentiation is preserved. The ventricles are normal in size and configuration. No evidence for obstructive hydrocephalus. No abnormal mass effect or midline shift. No extra-axial fluid collections. No pathologic intra-axial enhancement or regional oligemia. No acute soft tissue or osseous abnormalities. Small left maxillary sinus retention cysts. Mild opacification of the anterior ethmoids. CT Neck: The thyroid gland and remaining cervical soft tissues are within normal limits. Mild cervical spondylosis. CT Upper Chest: The visualized lung apices and upper mediastinum are within normal limits. Neck CTA: Evaluation of the proximal arch branch vessels is somewhat limited due to streak and motion artifact. Aortic Arch: Normal contour and caliber. Two vessel branching pattern of the arch with left common carotid artery arising from the brachiocephalic trunk. Great Vessel Origins: No significant stenosis of the branch origins. Right Common Carotid Artery: No focal stenosis or occlusion. Cervical Right Internal Carotid Artery: Normal opacification without focal stenosis or occlusion. Left Common Carotid Artery: No focal stenosis or occlusion. Cervical Left Internal Carotid Artery: Normal opacification without focal stenosis or occlusion. Cervical Right Vertebral Artery: No focal stenosis or occlusion. Cervical Left Vertebral Artery: No focal stenosis or occlusion. Brain CTA: Intracranial Internal Carotid Arteries: No focal stenosis or occlusion. Right Anterior Cerebral Artery: The A1 segment is diminutive. Normal opacification of the distal SENA segments. Left Anterior Cerebral Artery: Normal A1 segment. Normal opacification of the distal SENA segments. Anterior Communicating Artery: Normal. Right Middle Cerebral Artery: Normal M1 segment of the MCA without focal stenosis or occlusion. Normal arborization of the distal segments. Left Middle Cerebral Artery: Normal M1 segment of the MCA without focal stenosis or occlusion. Normal arborization of the distal segments. Right Vertebral Artery: Normal V4 segment. Left Vertebral Artery: Normal V4 segment. Basilar Artery: Normal without focal stenosis or occlusion. Normal appearance of the proximal superior cerebellar arteries. Right Posterior Cerebral Artery: Normal P1 segment. Normal opacification of the distal CHAINSTITCH SEWING MACHINE OPERATOR segments. Left Posterior Cerebral Artery: Normal P1 segment. Normal opacification of the distal CHAINSTITCH SEWING MACHINE OPERATOR segments. Normal opacification of the superior sagittal, straight, transverse, and sigmoid sinuses. CT/CT angio head neck stroke IMPRESSION: No arterial high grade stenosis or large vessel occlusion in the head or neck. Above impression was communicated to Dr. Haywood on 09/09/2022 at 11:39 AM
--- NOTE | ~2022-09-09 | XR_ITS ---
EXAMINATION: XR CHEST CLINICAL INFORMATION: Acute mental status change COMPARISON: Previous x-ray July 2022 TECHNIQUE: Frontal view of the chest was obtained. FINDINGS: No significant abnormality is noted involving the heart, lungs, mediastinum, bony thorax or soft tissues. XR/XR chest 1V IMPRESSION: Unremarkable examination.
--- NOTE | ~2022-09-09 | CT_ITS ---
EXAMINATION: CT HEAD WITHOUT CONTRAST (STROKE PROTOCOL) CLINICAL INFORMATION: Stroke protocol. Headache COMPARISON: None available. TECHNIQUE: Contiguous axial imaging was performed from the skull base to vertex without intravenous administration of contrast. This CT examination was performed using dose optimization techniques as appropriate, variously including the following: *Automated exposure control *Adjustment of mA and/or kV according to patient size (this includes techniques or standardized protocols for targeted exams where dose is matched to indication/reason for exam; i.e. extremities or head) *Use of iterative reconstruction technique DLP: 719 mGy-cm FINDINGS: There is no evidence of an extra-axial collection. There is no evidence of intra or extra-axial hemorrhage. The ventricles and extra-axial CSF spaces are appropriate. [place]-white matter differentiation is normal. No mass, mass effect or infarct. Review of bone windows is normal. Polyp or cyst in the left maxillary sinus. CT/CT head for stroke IMPRESSION: No acute intracranial pathology. This critical result was discussed with Dr Ortiz at 11:15 hours on 09/09/2022. It was ascertained that the content and urgency of the report was understood at the time of direct communication.
--- NOTE | 2022-09-09 10:46 | ECG_ITS ---
Test Reason : cp Blood Pressure : / mmHG Vent. Rate : 083 BPM Atrial Rate : 083 BPM P-R Int : 188 ms QRS Dur : 098 ms QT Int : 382 ms P-R-T Axes : 038 -17 -14 degrees QTc Int : 448 ms Normal sinus rhythm Incomplete right bundle branch block Minimal voltage criteria for LVH, may be normal variant ( R in aVL ) Borderline ECG When compared with ECG of 12-AUG-2022 03:30, No significant change was found Referred By: Nicole Ortiz Electronically Signed By:SHERRY DALLAS MD
[2022-09-09 10:49] VITALS: BP 211/106; PULSE 96; RESP 18; O2SAT 98; BMI 25.8
[2022-09-09] MEDS: iohexoL 350 MG/ML 100 ML INFUS..BTL 70 ML IV (11:08)
[2022-09-09 11:30] LABS: MANUAL DIFF FLAG NO
[2022-09-09 11:32] LABS: Basophils Percent Auto 0.5 % (0-2); Eosinophils Absolute Auto 0.2 X10*3/uL (0.0-0.4); Eosinophils Percent Auto 2.2 % (0-4); Hematocrit 41.4 % (42.0-52.0); Hemoglobin 14.5 g/dl (14.0-18.0); Imm Gran Abs Auto 0.02 X10*3/uL (0.00-0.03); Imm Gran Pct Auto 0.2 % (0.0-0.4); Lymphocytes Absolute Auto 2.8 X10*3/uL (1.2-4.9); Lymphocytes Percent Auto 33.3 % (20-40); Mean Corpuscular Hemoglobin 30.4 pg (27.0-33.0); Mean Corpuscular Volume 86.8 fL (80.0-98.0); Mean Platelet Volume 9.9 fL (9.4-12.4); Monocytes Absolute Auto 0.7 X10*3/uL (0.1-1.2); Monocytes Percent Auto 8.8 % (2-11); Neutrophils Absolute Auto 4.6 x10*3/uL (2.0-8.3); Platelet Count 290 X10*3/uL (160-400); Red Blood Count 4.77 X10*6/uL (4.60-5.80); Red Cell Distribution Width 12.2 % (11.0-16.0); White Blood Count 8.3 X10*3/uL (4.8-10.8)
[2022-09-09 11:33] LABS: Appearance Urine Clear; Color Urine Yellow; Glucose Urine UA Negative (Negative); Leukocyte Esterase Urine Negative (Negative); Nitrite Urine Negative (Negative); PH 5.5 (5.0-9.0); Urine Blood Negative (Negative); Urine Ketones Negative (Negative); Urine Protein Negative (Neg-Trace)
[2022-09-09 11:38] LABS: Bacteria Urine None Seen (None Seen); Hyaline Casts Urine 0-2 /LPF (0-2); INTERNATIONAL NORM RATIO 0.9 (0.9-1.1); Prothrombin Time 10.4 SEC (10.0-13.1); RBC Urine 0-2 /HPF (0-2); Squamous Epithelial Cell Urine 0-2 /HPF (0-2); WBC Urine 0-5 /HPF (0-5)
[2022-09-09 11:40] LABS: Partial Thromboplastin Time 26.9 SEC (26.0-36.4)
[2022-09-09 11:41] LABS: Stroke Lab Use COMPLETE
[2022-09-09 11:48] VITALS: BP 194/111; PULSE 74; RESP 30; O2SAT 95
[2022-09-09 11:51] LABS: Anion Gap 15 (12-20); Blood Urea Nitrogen 11 mg/dL (9-16); Carbon Dioxide 20 mmol/L (22-29); Chloride 104 mmol/L (96-108); Creatinine Clr Calc Pharmacy 133.7; Estimated Glomerular Filt Rate > 60; Ethanol < 10 mg/dL; Glucose Random 101 mg/dL (60-115); Magnesium 1.6 mg/dL (1.6-2.6); Phosphorus 2.3 mg/dL (2.7-4.5); Potassium 3.8 mmol/L (3.3-5.1); Sodium 135 mmol/L (135-145)
[2022-09-09 11:54] LABS: Troponin-I High Sensitivity < 2.7 ng/L (<3.5-35.0)
--- NOTE | 2022-09-09 11:59 | ED_ITS ---
HPI - Altered Mental Status General Chief Complaint: Altered Mental Status Stated Complaint: difficulty with speech Time Seen by Provider: 09/09/22 10:45 History of Present Illness HPI narrative: Patient is 47 years old presents today with having feeling different. Feeling hot. Positive history of hypertension. Positive history of high cholesterol. Patient is on medication. Positive history of EtOH last night. Positive history of marijuana use last night. No nausea no vomiting. Last known well time was yesterday while he was drinking. His observed him to be normal. Patient presents today feeling different. Feeling like he is not as coordinated. Feel like his heart beating fast. Patient is from home. Had difficulty ambulating. It difficulty with was words. Related Data Previous Rx's Medication Instructions Recorded famotidine 20 mg tablet (Pepcid) 20 mg PO DAILY PRN abdominal 10/14/21 discomfort #30 tabs ondansetron 4 mg disintegrating 4 mg PO Q8H PRN nausea and 10/14/21 tablet vomiting #20 tabs amlodipine 5 mg tablet 5 mg PO DAILY 30 days #30 tabs 02/15/22 cyclobenzaprine 10 mg tablet 10 mg PO BEDTIME PRN muscle spasm 02/15/22 #7 tabs lidocaine 5 % topical patch 1 patch topical DAILY PRN pain #15 02/15/22 ea colchicine 0.6 mg tablet 0.6 mg PO DAILY #14 tabs 03/09/22 prednisone 20 mg tablet 20 mg PO DAILY 7 days #7 tabs 03/09/22 amlodipine 10 mg tablet 10 mg PO DAILY #30 tabs 05/05/22 lisinopril 10 mg tablet 10 mg PO DAILY #30 tabs 05/05/22 loperamide 2 mg tablet (Imodium 2 mg PO Q6H PRN loose stool #14 05/08/22 A-D) tabs Allergies Allergy/AdvReac Type Severity Reaction Status Date / Time No Known Allergies Allergy Verified 09/09/22 10:49 Review of Systems Review of Systems: No fever no chills no chest pain Yes all other systems are reviewed and are negative [facility] Past Medical History Attestation statement: The following information was validated with the patient. Medical History No pertinent past medical history Social History Social History Alcohol intake: current Alcohol intake frequency: 0-2 drinks per day Alcohol type: beer and hard liquor Smoked in Last 30 Days: No Use of substances other than those prescribed or required for medical reasons: No Advance Directives: No Advance Directives Information Provided: Yes Physical Exam ED Vital Signs: Vital Signs - 24 hr 09/09/22 10:49 09/09/22 11:48 09/09/22 12:58 Pulse Rate 96 74 84 Respiratory Rate 18 30 H 20 Blood Pressure 211/106 H 194/111 H 174/110 H Pulse Oximetry 98 95 97 Oxygen Delivery Method Room Air Room Air Room Air BMI result Body Mass Index 25.8 Appearance: Alert. Oriented X3. No acute distress. Eyes: Pupils equal, round and reactive to light. ENT: Pharynx normal. Neck: Normal inspection. Neck supple. No lymph nodes noted. No crepitus CVS: Normal heart rate and rhythm. Pulses normal. Normal S1 and S2 Respiratory: No respiratory distress. Breath sounds normal. No Wheezing. No rales Abdomen: Soft and nontender. No rigidity. No distention. good BS x4 Skin: Skin warm and dry. Normal skin color. Normal skin turgor. Extremities: No lower extremity edema. Neurovascular intact to all extremities. No Lacerations. No Rash Neuro: Oriented X 3. No motor deficit. No sensory deficit. Moving all extermities. No slurred speech NIH Stroke Scale Internal: Initial- Upon Arrival Time: 12:02 Level of Consciousness: Alert Level of Consciousness Questions: Answers both questions correctly Level of Consciousness Commands: Performs both tasks correctly Best Gaze: Normal Visual: No visual loss Facial Palsy: Normal Motor Arm (Right): No drift Motor Arm (Left): No drift Motor Leg (Right): No drift Motor Leg (Left): No drift Limb Ataxia: Absent Sensory: Normal Best Language: No aphasia Dysarthia: Normal Extinction and Inattention: No abnormality Score: 0 Medications Administered Discontinued Medications Generic Name Dose Route Start Last Admin Trade Name Freq PRN Reason Stop Dose Admin Amlodipine Besylate 10 mg 09/09/22 12:48 09/09/22 13:07 Amlodipine Besylate 10 Mg Tablet PO 09/09/22 12:49 10 mg ONCE ONE Administration Protocol Iohexol 70 ml 09/09/22 11:08 09/09/22 11:08 Iohexol 350 Mg/Ml 100 Ml Infus..Btl IV 09/09/22 11:09 70 ml ONCE ONE Administration Lorazepam 1 mg 09/09/22 11:58 09/09/22 12:39 Lorazepam 2 Mg/Ml Vial IVPUSH 09/09/22 11:59 1 mg ONCE ONE Administration Medical Decision Making Medical Decision Making [facility] Narrative: Patient felt extremely anxious this morning. Feels palpitation had difficulty finding words CT scan of the head was grossly negative for any acute evidence of bleeding. CTA showed no large vessel occlusion. Given Ativan with good resolution of patient's symptoms. Has a history of anxiety in the past. Patient blood pressure extremely elevated he claims he normally is on amlodipine but has not been compliant. A dose of amlodipine was given in the emergency department. Patient monitor emergency department for another 2 hours. Patient's alcohol was nondetectable. He admits to using marijuana last night. Admits to drinking alcohol last night. Differential Diagnosis Hypertension, CVA, anxiety Admission/Observation Consideration of admission/observation: Escalation of care including admission/observation considered Lab Data [facility] Lab Attestation statement: I reviewed the patient's lab results. 09/09/22 11:24 09/09/22 11:24 Labs: Lab Results 09/09/22 09/09/22 09/09/22 Range/Units 11:24 11:24 11:24 WBC 8.3 (4.8-10.8) X10*3/uL RBC 4.77 (4.60-5.80) X10*6/uL Hgb 14.5 (14.0-18.0) g/dl Hct 41.4 L (42.0-52.0) % MCV 86.8 (80.0-98.0) fL MCH 30.4 (27.0-33.0) pg MCHC 35.0 (31.0-36.0) g/dl RDW 12.2 (11.0-16.0) % Plt Count 290 (160-400) X10*3/uL MPV 9.9 (9.4-12.4) fL Immature Gran % (Auto) 0.2 (0.0-0.4) % Neut % (Auto) 55.0 (45-73) % Lymph % (Auto) 33.3 (20-40) % [place] % (Auto) 8.8 (2-11) % Eos % (Auto) 2.2 (0-4) % Baso % (Auto) 0.5 (0-2) % Lymph # (Auto) 2.8 (1.2-4.9) X10*3/uL [place] # (Auto) 0.7 (0.1-1.2) X10*3/uL Eos # (Auto) 0.2 (0.0-0.4) X10*3/uL Baso # (Auto) 0.0 (0.0-0.2) X10*3/uL Abs Immat Gran (auto) 0.02 (0.00-0.03) X10*3/uL Absolute Neuts (auto) 4.6 (2.0-8.3) x10*3/uL Absolute Nucleated RBC 0.000 (0.0-0.012) X10*3/uL Nucleated RBC % (auto) 0.0 (0.0-0.2) /100WBC PT 10.4 (10.0-13.1) SEC Whole Blood PT (11.1-13.5) sec INR 0.9 (0.9-1.1) Whole Blood INR (0.9-1.1) APTT 26.9 (26.0-36.4) SEC Sodium 135 (135-145) mmol/L Potassium 3.8 (3.3-5.1) mmol/L Chloride 104 (96-108) mmol/L Carbon Dioxide 20 L (22-29) mmol/L Anion Gap 15 (12-20) BUN 11 (9-16) mg/dL Creatinine 0.82 (0.5-1.4) mg/dL Estim Creat Clear Calc 133.7 Estimated GFR > 60 Random Glucose 101 (60-115) mg/dL Calcium 9.0 (8.4-10.2) mg/dL Phosphorus 2.3 L (2.7-4.5) mg/dL Magnesium 1.6 (1.6-2.6) mg/dL Total Creatine Kinase 252 H (38-174) U/L Troponin I High Sens (<3.5-35.0) ng/L Urine Color Urine Appearance Urine pH (5.0-9.0) Ur Specific [place] (1.005-1.025) Urine Protein (Neg-Trace) mg/dL Urine Glucose (UA) (Negative) mg/dL Urine Ketones (Negative) mg/dL Urine Blood (Negative) Urine Nitrite (Negative) Ur Leukocyte Esterase (Negative) Urine RBC (0-2) /HPF Urine WBC (0-5) /HPF Ur Squamous Epith Cells (0-2) /HPF Urine Bacteria (None Seen) Hyaline Casts (0-2) /LPF Ethyl Alcohol < 10 mg/dL 09/09/22 09/09/22 09/09/22 Range/Units 11:24 11:24 11:41 WBC (4.8-10.8) X10*3/uL RBC (4.60-5.80) X10*6/uL Hgb (14.0-18.0) g/dl Hct (42.0-52.0) % MCV (80.0-98.0) fL MCH (27.0-33.0) pg MCHC (31.0-36.0) g/dl RDW (11.0-16.0) % Plt Count (160-400) X10*3/uL MPV (9.4-12.4) fL Immature Gran % (Auto) (0.0-0.4) % Neut % (Auto) (45-73) % Lymph % (Auto) (20-40) % [place] % (Auto) (2-11) % Eos % (Auto) (0-4) % Baso % (Auto) (0-2) % Lymph # (Auto) (1.2-4.9) X10*3/uL [place] # (Auto) (0.1-1.2) X10*3/uL Eos # (Auto) (0.0-0.4) X10*3/uL Baso # (Auto) (0.0-0.2) X10*3/uL Abs Immat Gran (auto) (0.00-0.03) X10*3/uL Absolute Neuts (auto) (2.0-8.3) x10*3/uL Absolute Nucleated RBC (0.0-0.012) X10*3/uL Nucleated RBC % (auto) (0.0-0.2) /100WBC PT (10.0-13.1) SEC Whole Blood PT 11.6 (11.1-13.5) sec INR (0.9-1.1) Whole Blood INR 1.0 (0.9-1.1) APTT (26.0-36.4) SEC Sodium (135-145) mmol/L Potassium (3.3-5.1) mmol/L Chloride (96-108) mmol/L Carbon Dioxide (22-29) mmol/L Anion Gap (12-20) BUN (9-16) mg/dL Creatinine (0.5-1.4) mg/dL Estim Creat Clear Calc Estimated GFR Random Glucose (60-115) mg/dL Calcium (8.4-10.2) mg/dL Phosphorus (2.7-4.5) mg/dL Magnesium (1.6-2.6) mg/dL Total Creatine Kinase (38-174) U/L Troponin I High Sens < 2.7 (<3.5-35.0) ng/L Urine Color Yellow Urine Appearance Clear Urine pH 5.5 (5.0-9.0) Ur Specific [place] 1.010 (1.005-1.025) Urine Protein Negative (Neg-Trace) mg/dL Urine Glucose (UA) Negative (Negative) mg/dL Urine Ketones Negative (Negative) mg/dL Urine Blood Negative (Negative) Urine Nitrite Negative (Negative) Ur Leukocyte Esterase Negative (Negative) Urine RBC 0-2 (0-2) /HPF Urine WBC 0-5 (0-5) /HPF Ur Squamous Epith Cells 0-2 (0-2) /HPF Urine Bacteria None Seen (None Seen) Hyaline Casts 0-2 (0-2) /LPF Ethyl Alcohol mg/dL Independent Interpretation I performed an independent interpretation of an: EKG Interpretation: My interpretation the patient's EKG showed a sinus rhythm heart rate is 80 IA QRS QTC within normal limits is no acute ST segment elevation noted. Radiology Impression Discussion of test interpretation with radiology: I have reviewed the radiolo gist's reading. Radiologist Impression: CT scan of the head was negative Independent Historian Clinical information obtained from an independent historian. History obtained from or confirmed by: Spouse Chronic Conditions Patient?s care impacted by: Hypertension Core Measures AMI core measures followed: No Discharge Plan Discharge Clinical Impression: Anxiety, Hypertension Prescriptions: No Action colchicine 0.6 mg tablet 0.6 mg PO DAILY Qty: 14 0RF prednisone 20 mg tablet 20 mg PO DAILY 7 Days Qty: 7 0RF famotidine [Pepcid] 20 mg tablet 20 mg PO DAILY PRN (Reason: abdominal discomfort) Qty: 30 0RF ondansetron 4 mg tablet,disintegrating 4 mg PO Q8H PRN (Reason: nausea and vomiting) Qty: 20 0RF cyclobenzaprine 10 mg tablet 10 mg PO BEDTIME PRN (Reason: muscle spasm) Qty: 7 0RF lidocaine 5 % adhesive patch,medicated 1 patch topical DAILY PRN (Reason: pain) Qty: 15 0RF Rx Instructions: leave on most painful area for up to 12 hrs amlodipine 5 mg tablet 5 mg PO DAILY 30 Days Qty: 30 0RF amlodipine 10 mg tablet 10 mg PO DAILY Qty: 30 1RF lisinopril 10 mg tablet 10 mg PO DAILY Qty: 30 1RF loperamide [Imodium A-D] 2 mg tablet 2 mg PO Q6H PRN (Reason: loose stool) Qty: 14 0RF
[2022-09-09 12:20] LABS: Prothrombin Time Whole Bld POC 11.6 sec (11.1-13.5)
[2022-09-09] MEDS: LORazepam 2 MG/ML VIAL 1 MG IVPUSH (12:39)
--- NOTE | 2022-09-09 12:49 | PC.NURSE ---
patient stated that he has not been taking his BP meds, no real reason noted
[2022-09-09 12:58] VITALS: BP 174/110; PULSE 84; RESP 20; O2SAT 97
[2022-09-09] MEDS: amLODIPine Besylate 10 MG TABLET PO (13:07)
[2022-09-09 14:08] VITALS: BP 176/95; PULSE 84; RESP 18; O2SAT 97
[2022-09-09 14:16] VITALS: BP 176/95; PULSE 84; RESP 18; O2SAT 97
[2022-09-10 07:57] LABS: Glucose, Whole Blood 108 mg/dL (60-115)
== END 2022-09-09 14:33 | disposition home or self-care (01) ==
PROVIDERS: Emergency Provider Emergency Medicine Emergency Medical Services
DX: F41.9 Anxiety disorder, unspecified (principal); I10 Essential (primary) hypertension; E78.5 Hyperlipidemia, unspecified; F12.90 Cannabis use, unspecified, uncomplicated; Z79.899 Other long term (current) drug therapy
CPT/HCPCS: 36415; 70450; 70496; 70498; 71045; 80048; 80307; 81001; 82550; 82947; 83735; 84100; 84484; 85025; 85610; 85730; 93005; 96374; 99284; 99285; J2060; Q9967

== ENCOUNTER → 2022-09-09 10:46 | Outpatient (BNV) | payer OTHER, SELFPAY | PROVIDERS: Emergency Provider Emergency Medicine Emergency Medical Services; Visit Provider Internal Medicine Cardiovascular Disease | DX: R07.9 Chest pain, unspecified (principal) | CPT/HCPCS: 93010 ==

== ENCOUNTER 2022-10-09 07:10 | Emergency (ER) | payer OTHER, SELFPAY ==
[2022-10-09 07:11] VITALS: BP 136/91; PULSE 87; RESP 18; TEMP 36.6; O2SAT 98; BMI 25.2
--- NOTE | 2022-10-09 07:21 | ED_ITS ---
HPI - General Adult General Chief complaint: Extremity Injury, Lower Stated complaint: L Leg Gout Time Seen by Provider: 10/09/22 07:21 Source: patient Mode of arrival: ambulatory Limitations: no limitations History of Present Illness HPI narrative: Patient is a 47 year old male with a past medical history of gout presenting with painful red left big toe. Patient states that the pain started yesterday but is much worse today. Patient has a history of gout with his last attack being a few moths ago and states this feels exactly the same as the last attack, same location. Patient explains the bed sheet touching him causes significant pain. Patient reports he was taking herbal pills and that helped but he has since ran out of medication. Denies fever, chills, nausea, vomiting, numbness or tingling. Related Data Previous Rx's Medication Instructions Recorded famotidine 20 mg tablet (Pepcid) 20 mg PO DAILY PRN abdominal 10/14/21 discomfort #30 tabs ondansetron 4 mg disintegrating 4 mg PO Q8H PRN nausea and 10/14/21 tablet vomiting #20 tabs amlodipine 5 mg tablet 5 mg PO DAILY 30 days #30 tabs 02/15/22 cyclobenzaprine 10 mg tablet 10 mg PO BEDTIME PRN muscle spasm 02/15/22 #7 tabs lidocaine 5 % topical patch 1 patch topical DAILY PRN pain #15 02/15/22 ea colchicine (gout) 0.6 mg tablet 0.6 mg PO DAILY #14 tabs 03/09/22 prednisone 20 mg tablet 20 mg PO DAILY 7 days #7 tabs 03/09/22 amlodipine 10 mg tablet 10 mg PO DAILY #30 tabs 05/05/22 lisinopril 10 mg tablet 10 mg PO DAILY #30 tabs 05/05/22 loperamide 2 mg tablet (Imodium 2 mg PO Q6H PRN loose stool #14 05/08/22 A-D) tabs amlodipine 10 mg tablet (Norvasc) 10 mg PO DAILY #30 tabs 09/09/22 colchicine (gout) 0.6 mg capsule 0.6 mg PO DAILY 2 weeks #14 caps 10/09/22 prednisone 20 mg tablet 40 mg PO DAILY 5 days #10 tabs 10/09/22 Allergies Allergy/AdvReac Type Severity Reaction Status Date / Time No Known Allergies Allergy Verified 10/09/22 07:11 Review of Systems Review of Systems: Constitutional : No Weight loss, No Fever, No Chills, No Fatigue, No Malaise ENT/Mouth : No sore throat, No Rhinorrhea Eyes: No Eye Pain, No Swelling, No Redness Cardiovascular : No Chest Pain, No SOB, No Dyspnea on Exertion, No Orthopnea, No Edema, No Palpitations Respiratory : No Cough, No Sputum, No Wheezing Gastrointestinal : No Nausea, No Vomiting, No Diarrhea, No Constipation, No abdominal Pain, No Hematochezia, No Melena Genitourinary : No Dysuria, No Urinary Frequency, No Hematuria, Musculoskeletal : +red, painful left big toe, no other muscle or joint pain Skin : No Skin Lesions, No rash Neuro : No Weakness, No Numbness, No Dizziness, No Headache Psych : No Anxiety/Panic, No Depression All other systems reviewed and are negative Yes all other systems are reviewed and are negative [facility] Past Medical History Attestation statement: The following information was validated with the patient. Source: old records reviewed and nursing notes reviewed Medical History No pertinent past medical history Social History Social History Alcohol intake: current Alcohol intake frequency: 0-2 drinks per day Alcohol type: beer and hard liquor Advance Directives: No Physical Exam ED Vital Signs: Vital Signs - 24 hr 10/09/22 07:11 Temperature 98 F Pulse Rate 87 Respiratory Rate 18 Blood Pressure 136/91 H Pulse Oximetry 98 Oxygen Delivery Method Room Air BMI result Body Mass Index 25.2 VSS Appearance: Alert.? Oriented X3.? No acute distress.? Head: Normocephalic, atraumatic, no step-offs or deformities Eyes: Pupils equal, round and reactive to light.? CVS: Normal heart rate and rhythm.? Pulses normal.? Respiratory: No respiratory distress.? Breath sounds normal.? Skin: Skin warm and dry.? Normal skin color.? Normal skin turgor.? Extremities: +erythema and extreme tenderness of the left big toe MTP joint. DP,AT,PT pulses 2+ and symmetric, motor and sensory function intact. No signs of neurovascular compromise or threat to limb. No calf ttp. 5/5 strength to bilateral upper and lower extremities Neuro: Oriented X 3.? No motor deficit.? No sensory deficit. CN 2-12 intact Medical Decision Making Medical Decision Making MDM Narrative: 0730 47 year old male presenting with left big toe pain Exam significant for erythematous painful left big toe. This is likely gout given the patient's history of gout and positive history and physical exam findings. Unlikely fracture, sprain or strain due to lack of mechanism and extreme pain with little stimuli. Unlikely gangrene or septic joint given lack of systemic symptoms and stable vitals. No signs of threat to limb, NV compromise, arterial occlusion Plan: discharge with prednisone and colchicine Educated patient on diagnosis and treatment plan, answered all question, patient verbalizes understanding. At this time patient will be discharged home, advised to return with new or worsening symptoms. Educated on worrisome signs and symptoms and when to return. At this time I feel comfortable discharge home. Differential Diagnosis Differential Diagnoses: The differential diagnosis associated with the presentation includes This is likely gout given the patient's history of gout and positive history and physical exam findings. Unlikely fracture, sprain or strain due to lack of mechanism and extreme pain with little stimuli. Unlikely gangrene or septic joint given lack of systemic symptoms and stable vitals. No signs of threat to limb, NV compromise, arterial occlusion Admission/Observation Consideration of admission/observation: Escalation of care including admission/observation considered Not indicated. Tests considered The following testing was considered but not selected: Atraumatic, history of gout, no need for imaging Prescription Management I considered prescription management with: Pain Medication Colchicine and prednisone sent to home pharmacy. Core Measures AMI core measures followed: Yes Measure exclusions: not indicated Critical Care Time Critical Care Time Critical Care Time: No Discharge Plan Discharge Clinical Impression: Gout Patient Disposition: Still a Patient Instructions: Gout (ED), Swollen Ankle Joint (ED) Additional Instructions: Take your medications as prescribed. If you were prescribed antibiotics today, it is important that you take your medication to their entirety, do not skip any doses, do not finish them early. Follow-up with your primary care provider this week. Return to the emergency department with new or worsening symptoms. Such as fevers, chills, chest pain, shortness of breath, nausea, vomiting, dizziness, headache, vision changes, lethargy In case of emergency call 911 Prescriptions: New colchicine (gout) 0.6 mg capsule 0.6 mg PO DAILY 14 Days Qty: 14 0RF prednisone 20 mg tablet 40 mg PO DAILY 5 Days Qty: 10 0RF No Action colchicine (gout) 0.6 mg tablet 0.6 mg PO DAILY Qty: 14 0RF prednisone 20 mg tablet 20 mg PO DAILY 7 Days Qty: 7 0RF famotidine [Pepcid] 20 mg tablet 20 mg PO DAILY PRN (Reason: abdominal discomfort) Qty: 30 0RF ondansetron 4 mg tablet,disintegrating 4 mg PO Q8H PRN (Reason: nausea and vomiting) Qty: 20 0RF cyclobenzaprine 10 mg tablet 10 mg PO BEDTIME PRN (Reason: muscle spasm) Qty: 7 0RF lidocaine 5 % adhesive patch,medicated 1 patch topical DAILY PRN (Reason: pain) Qty: 15 0RF Rx Instructions: leave on most painful area for up to 12 hrs amlodipine 5 mg tablet 5 mg PO DAILY 30 Days Qty: 30 0RF amlodipine 10 mg tablet 10 mg PO DAILY Qty: 30 1RF lisinopril 10 mg tablet 10 mg PO DAILY Qty: 30 1RF loperamide [Imodium A-D] 2 mg tablet 2 mg PO Q6H PRN (Reason: loose stool) Qty: 14 0RF amlodipine [Norvasc] 10 mg tablet 10 mg PO DAILY Qty: 30 0RF Referrals: Physician,None [Primary Care Provider] - 3 days Stand Alone Forms: Work/School Release Interventions: ED Discharge Assessment Last Done: 10/09/22 07:41 Discharge Date/Time: 10/09/22 07:42
== END 2022-10-09 07:42 | disposition still patient (30) ==
PROVIDERS: Emergency Provider Emergency Medicine
DX: M10.9 Gout, unspecified (principal); M79.675 Pain in left toe(s); Z79.899 Other long term (current) drug therapy
CPT/HCPCS: 99282; 99283

== ENCOUNTER 2023-01-14 14:19 | Emergency (ER) | payer OTHER, SELFPAY ==
[2023-01-14 14:34] VITALS: BP 189/103; PULSE 105; RESP 20; TEMP 35.9; O2SAT 97; BMI 25.6
--- NOTE | 2023-01-14 14:34 | ED.EAR ---
HPI - Ear Problem General Chief complaint: General Medical Stated complaint: L ear pain Time Seen by Provider: 01/14/23 15:40 Source: patient Mode of arrival: ambulatory Limitations: no limitations History of Present Illness HPI Narrative: 47-year-old male previously healthy here with complaints of 2 days of tactile temps, headache, nasal congestion and left ear pain. No difficulty breathing, chest pain, vomiting, diarrhea, abdominal pain, skin rash, neck pain, neck stiffness. Related Data Previous Rx's Medication Instructions Recorded famotidine 20 mg tablet (Pepcid) 20 mg PO DAILY PRN abdominal 10/14/21 discomfort #30 tabs ondansetron 4 mg disintegrating 4 mg PO Q8H PRN nausea and 10/14/21 tablet vomiting #20 tabs amlodipine 5 mg tablet 5 mg PO DAILY 30 days #30 tabs 02/15/22 cyclobenzaprine 10 mg tablet 10 mg PO BEDTIME PRN muscle spasm 02/15/22 #7 tabs lidocaine 5 % topical patch 1 patch topical DAILY PRN pain #15 02/15/22 ea colchicine (gout) 0.6 mg tablet 0.6 mg PO DAILY #14 tabs 03/09/22 prednisone 20 mg tablet 20 mg PO DAILY 7 days #7 tabs 03/09/22 amlodipine 10 mg tablet 10 mg PO DAILY #30 tabs 05/05/22 lisinopril 10 mg tablet 10 mg PO DAILY #30 tabs 05/05/22 loperamide 2 mg tablet (Imodium 2 mg PO Q6H PRN loose stool #14 05/08/22 A-D) tabs amlodipine 10 mg tablet (Norvasc) 10 mg PO DAILY #30 tabs 09/09/22 colchicine (gout) 0.6 mg capsule 0.6 mg PO DAILY 2 weeks #14 caps 10/09/22 prednisone 20 mg tablet 40 mg (2 x 20 mg) PO DAILY 5 days 10/09/22 #10 tabs Allergies Allergy/AdvReac Type Severity Reaction Status Date / Time No Known Allergies Allergy Verified 10/09/22 07:11 Review of Systems Review of Systems: Yes all other systems are reviewed and are negative Constitutional: Constitutional: Reports no additional constitutional complaints, Denies body ache(s), Denies chills, Reports fever(s), Reports headache(s) and Denies weakness Eyes: Eyes: Reports no additional eye complaints and Denies change in vision ENT: Reports system reviewed and no additional complaints, except as documented, Denies dizziness, Reports otalgia, Reports headache(s), Reports nasal congestion, Denies nasal discharge and Denies neck pain Cardiovascular: Cardiovascular: Reports no additional cardiovascular complaints, Denies chest pain, Denies leg edema and Denies dyspnea Respiratory: Respiratory: Reports no additional respiratory complaints, Denies cough and Denies dyspnea Gastrointestinal: Gastrointestinal: Reports no additional gastrointestinal complaints, Denies abdominal pain, Denies diarrhea, Denies nausea and Denies vomiting Genitourinary: Genitourinary: Denies urinary incontinence Musculoskeletal: Musculoskeletal: Reports no additional musculoskeletal complaints, Denies back pain, Denies arthralgias, Denies joint swelling, Denies neck pain, Denies numbness and Denies tingling Integumentary/Breasts: Skin/Breast: Reports system reviewed and no additional complaints, except as docu and Denies rash Neurologic: Reports system reviewed and no additional complaints, except as documented, Denies Abnormal speech present, Denies dizziness, Reports headache(s), Denies numbness, Denies tingling and Denies weakness [facility] Past Medical History Attestation statement: The following information was validated with the patient. Source: old records reviewed and nursing notes reviewed Medical History No pertinent past medical history Social History Alcohol intake: current Alcohol intake frequency: 0-2 drinks per day Alcohol type: beer and hard liquor Physical Exam Vital Signs: Vital Signs: Last Vital Signs Temp 96.6 F L 01/14/23 14:34 Pulse 105 H 01/14/23 14:34 Resp 20 01/14/23 14:34 BP 189/103 H 01/14/23 14:34 Pulse Ox 97 01/14/23 14:34 O2 Del Method Room Air 01/14/23 14:34 BMI result Body Mass Index 25.6 Const: General: cooperative, healthy appearing, comfortable and no acute distress Orientation/consciousness: patient oriented x3 Limitations: no limitations HEENT: Head: Yes normal to inspection Ears: hearing grossly normal bilaterally, TM normal on the right, EAC's normal, mastoids normal, no periauricular adenopathy and TM abnormal (Left TM) bulging and wth effusion; not erythematous General nose exam: Normal external nose present Face and sinus: Yes normal facial exam Mouth: Normal oral and palatal mucosa present Throat: Yes posterior oropharynx normal, Yes tonsils normal and Yes uvula midline Eyes: General: appearance normal, both eyes and all related structures Pupils: Equal, round and reactive pupils present Neck: Neck: Yes normal visual inspection, Yes full ROM, Yes no lymphadenopathy and Yes no meningeal signs Chest: Chest palpation & inspection: normal inspection of the chest Resp: Effort & Inspection: normal respiratory effort Auscultation: clear to auscultation bilaterally Cardio: Rate: regular rate Rhythm: regular rhythm Peripheral pulses: Peripheral pulses 2+ throughout GI: Inspection: Yes normal to inspection Palpation (GI): Soft to palpation and nontender Auscultation: normal bowel sounds Back/Spine/Pelvis: Thoracic/Lumbar Spine: thoracic and lumbar spine normal to inspection Skin: General skin exam: no rashes or lesions noted Neuro: General: patient oriented x3, no meningeal signs, no focal motor deficits and normal sensation to monofilament Cranial nerves: Yes Equal, round and reactive pupils present Cognition (Neuro): normal cognition Speech: No Abnormal speech present Gait exam (Neuro): Normal gait present Motor exam (neuro): 5/5 motor strength present throughout Extrem: General: Yes normal to inspection Course Course Course Narrative: This is a rapid medical exam. Deferred additional HPI, ROS, PE to primary provider. 47 yo male with history of HTN, HLD here with headache, left ear pain, fever, nausea, diarrhea x 2 days. Will obtain viral testing. VSS Medical Decision Making Medical Decision Making [facility] Narrative: 47-year-old male previously healthy here with complaints of 2 days of tactile temps, headache, nasal congestion and left ear pain. No difficulty breathing, chest pain, vomiting, diarrhea, abdominal pain, skin rash, neck pain, neck stiffness. Patient has a left TM effusion with no signs of AOM. Will send testing for flu/COVID/RSV Differential Diagnosis Differential Diagnoses: The differential diagnosis associated with the presentation includes Ear effusion Viral syndrome Influenza AOM Admission/Observation Consideration of admission/observation: Escalation of care including admission/observation considered No evidence of mastoiditis, malignant otitis externa requiring advanced imaging, urgent ENT consultation Lab Data [facility] Lab Attestation statement: I reviewed the patient's lab results. Negative viral test Labs: Lab Results 01/14/23 Range/Units 14:43 Influenza Type A (PCR) NEGATIVE (Negative) Influenza Type B (PCR) NEGATIVE (Negative) RSV RNA Qual (PCR) NEGATIVE (Negative) SARS-CoV-2 RNA (RT-PCR) NEGATIVE (Negative) Tests considered The following testing was considered but not selected: No evidence of mastoiditis, malignant otitis externa requiring advanced imaging Prescription Management I considered prescription management with: Antibiotic Discharge Plan Discharge Clinical Impression: Acute viral syndrome Patient Disposition: Home, Self-Care Instructions: Viral Syndrome (ED) Additional Instructions: Motrin or Tylenol for pain or fever Increase fluids, rest Prescriptions: No Action colchicine (gout) 0.6 mg tablet 0.6 mg PO DAILY Qty: 14 0RF prednisone 20 mg tablet 20 mg PO DAILY 7 Days Qty: 7 0RF famotidine [Pepcid] 20 mg tablet 20 mg PO DAILY PRN (Reason: abdominal discomfort) Qty: 30 0RF ondansetron 4 mg tablet,disintegrating 4 mg PO Q8H PRN (Reason: nausea and vomiting) Qty: 20 0RF cyclobenzaprine 10 mg tablet 10 mg PO BEDTIME PRN (Reason: muscle spasm) Qty: 7 0RF lidocaine 5 % adhesive patch,medicated 1 patch topical DAILY PRN (Reason: pain) Qty: 15 0RF Rx Instructions: leave on most painful area for up to 12 hrs amlodipine 5 mg tablet 5 mg PO DAILY 30 Days Qty: 30 0RF amlodipine 10 mg tablet 10 mg PO DAILY Qty: 30 1RF lisinopril 10 mg tablet 10 mg PO DAILY Qty: 30 1RF loperamide [Imodium A-D] 2 mg tablet 2 mg PO Q6H PRN (Reason: loose stool) Qty: 14 0RF amlodipine [Norvasc] 10 mg tablet 10 mg PO DAILY Qty: 30 0RF colchicine (gout) 0.6 mg capsule 0.6 mg PO DAILY 14 Days Qty: 14 0RF prednisone 20 mg tablet 40 mg PO DAILY 5 Days Qty: 10 0RF Referrals: Physician,Unknown J [Primary Care Provider] - 1 week Stand Alone Forms: Work/School Release
[2023-01-14 15:29] LABS: Influenza A PCR NEGATIVE (Negative); Influenza B PCR NEGATIVE (Negative); Resp Syncy Virus RNA Qual PCR NEGATIVE (Negative); SARS COV2 PCR INHOUSE NEGATIVE (Negative)
== END 2023-01-14 15:52 | disposition home or self-care (01) ==
PROVIDERS: Nurse Practitioner Family; Emergency Provider Emergency Medicine
DX: B34.9 Viral infection, unspecified (principal); H92.02 Otalgia, left ear; Z20.822 Contact with and (suspected) exposure to COVID-19; Z20.828 Contact with and (suspected) exposure to other viral communicable diseases
CPT/HCPCS: 0241U; 99282; 99283

== ENCOUNTER 2023-01-27 15:09 | Emergency (ER) | payer OTHER, SELFPAY ==
--- NOTE | ~2023-01-27 | XR_ITS ---
EXAMINATION: XR CHEST CLINICAL INFORMATION: Chest pain COMPARISON: None available. TECHNIQUE: 2 views of the chest were obtained. FINDINGS: No significant abnormality is noted involving the heart, lungs, mediastinum, bony thorax or soft tissues. XR/XR chest 2V IMPRESSION: Unremarkable examination.
--- NOTE | 2023-01-27 15:12 | ECG_ITS ---
Test Reason : CP Blood Pressure : / mmHG Vent. Rate : 093 BPM Atrial Rate : 093 BPM P-R Int : 158 ms QRS Dur : 094 ms QT Int : 370 ms P-R-T Axes : 030 -07 -10 degrees QTc Int : 460 ms Sinus rhythm with occasional Premature ventricular complexes Possible Left atrial enlargement Minimal voltage criteria for LVH, may be normal variant ( R in aVL ) Borderline ECG When compared with ECG of 09-SEP-2022 11:28, Premature ventricular complexes are now Present Incomplete right bundle branch block is no longer Present Referred By: Suzanna Louis Electronically Signed By:Favian Leon
--- NOTE | 2023-01-27 15:48 | ED.ABDPAIN ---
HPI - Abdominal Pain General Chief Complaint: Chest Pain Stated Complaint: chest and abd pain,nausea Time Seen by Provider: 01/27/23 21:03 Source: patient Mode of arrival: ambulatory History of Present Illness HPI narrative: 47-year-old male who presents with chronic alcohol use, patient reports that he used to drink every day but now has attempted to cut back and drink every other day, his last drink was yesterday. He states he has experienced significant trembling and sweating previously but today reports that he is felt a little bit nauseous and describes paresthesias, he denies any vomiting. Patient reports that the chest pain that he is experiencing has been an ongoing for over a week in starts off as a sharp area on the right and then will sometimes move over to the left and then go away. Related Data Previous Rx's Medication Instructions Recorded famotidine 20 mg tablet (Pepcid) 20 mg PO DAILY PRN abdominal 10/14/21 discomfort #30 tabs ondansetron 4 mg disintegrating 4 mg PO Q8H PRN nausea and 10/14/21 tablet vomiting #20 tabs amlodipine 5 mg tablet 5 mg PO DAILY 30 days #30 tabs 02/15/22 cyclobenzaprine 10 mg tablet 10 mg PO BEDTIME PRN muscle spasm 02/15/22 #7 tabs lidocaine 5 % topical patch 1 patch topical DAILY PRN pain #15 02/15/22 ea colchicine 0.6 mg tablet 0.6 mg PO DAILY #14 tabs 03/09/22 prednisone 20 mg tablet 20 mg PO DAILY 7 days #7 tabs 03/09/22 amlodipine 10 mg tablet 10 mg PO DAILY #30 tabs 05/05/22 lisinopril 10 mg tablet 10 mg PO DAILY #30 tabs 05/05/22 loperamide 2 mg tablet (Imodium 2 mg PO Q6H PRN loose stool #14 05/08/22 A-D) tabs amlodipine 10 mg tablet (Norvasc) 10 mg PO DAILY #30 tabs 09/09/22 colchicine 0.6 mg capsule 0.6 mg PO DAILY 2 weeks #14 caps 10/09/22 prednisone 20 mg tablet 40 mg (2 x 20 mg) PO DAILY 5 days 10/09/22 #10 tabs sucralfate 100 mg/mL oral 10 ml PO BID #420 mL 01/27/23 suspension (Carafate) Allergies Allergy/AdvReac Type Severity Reaction Status Date / Time No Known Allergies Allergy Verified 10/09/22 07:11 Review of Systems Review of Systems Pertinent positives and negatives as stated in HPI PMFSH Past Medical History Source: nursing notes reviewed Medical History No pertinent past medical history Social History Social History Alcohol intake: current Alcohol intake frequency: 0-2 drinks per day Alcohol type: beer and hard liquor Advance Directives: No Advance Directives Information Provided: No Physical Exam ED Vital Signs: Vital Signs - 24 hr 01/27/23 15:54 01/27/23 21:11 Temperature 98.9 F Pulse Rate 89 80 Respiratory Rate 16 18 Blood Pressure 163/114 H 172/107 H Pulse Oximetry 97 Oxygen Delivery Method Room Air BMI result Body Mass Index 25.5 VITAL SIGNS: Reviewed. GENERAL: Well developed, well nourished, in no acute distress. HEAD: Normocephalic/atraumatic EYES: PERRLA, EOMI EARS: Ext canals without abnormality NOSE: Nares patent bilateral OROPHARYNX: no oral lesions noted, posterior pharynx clear NECK: Supple, no adenopathy LUNGS: Normal breath sounds. No adventitious sounds or accessory muscle use. SpO2<97> CARDIOVASCULAR: Regular rate and rhythm without noted murmurs ABDOMEN: Soft, non-tender, non-distended with bowel sounds. MUSCULOSKELETAL: No tenderness, deformities, or effusions noted on gross inspection. EXTREMITIES: No cyanosis, clubbing or edema. SKIN: Inspection of the skin reveals no rashes NEUROLOGIC: Alert and oriented x 4. Strength and sensation to light touch were grossly intact x 4. Course Course Course Narrative: This is a rapid medical exam. deferred additional HPI, ROS, PE to primary provider. 47 yo male with history of HTN, gout, HLD here with complaints of chest pain, abdominal pain, nausea, diarrhea, chills, headache x 2 weeks. Here one week ago and diagnosed with viral syndrome. Went to for same (negative viral testing). Will obtain labs, EKG, CXR, viral testing, UA. VSS Medical Decision Making Medical Decision Making MDM Narrative: 47-year-old male with history and clinical presentation of multiple symptoms that in my interpretation are all related with his underlying alcohol use disorder. DDX: B12 neuropathy, alcohol withdrawal, doubt ACS/pneumonia or viral illness, alcoholic gastritis, pancreatitis. I reviewed all investigations and hematologic indices are grossly within normal limits, there are no noted derangements. Chemistry indices are grossly within normal limits without derangements and high sensitivity troponin is undetectable without acute changes on EKG. Viral testing is negative for influenza/RSV/COVID-19. Chest x-ray without infiltrate or evidence of venous congestion and otherwise my interpretation is in agreement with radiology's impression. I discussed at length with the patient regarding his symptoms and the suspected cause of the symptoms as it relates to his alcohol use, we also discussed the dangers of withdrawing and attempting to do this on his own given the chronicity of his drinking. Patient was agreeable to obtain information for outpatient detox resources and has endorse that he will attempt to make calls tomorrow. He was given strict return precautions should he began developing much worse withdrawal symptoms than his blood pressure. Differential Diagnosis Differential Diagnoses: The differential diagnosis associated with the presentation includes Please see the discussion above Admission/Observation Consideration of admission/observation: Escalation of care including admission/observation considered Please see the discussion above Lab Data MDM Lab Attestation statement: I reviewed the patient's lab results. Please see the discussion above 01/27/23 16:42 01/27/23 16:42 Labs: Lab Results 01/27/23 Range/Units 16:42 WBC 8.8 (4.8-10.8) X10*3/uL RBC 5.08 (4.60-5.80) X10*6/uL Hgb 15.1 (14.0-18.0) g/dl Hct 43.7 (42.0-52.0) % MCV 86.0 (80.0-98.0) fL MCH 29.7 (27.0-33.0) pg MCHC 34.6 (31.0-36.0) g/dl RDW 12.3 (11.0-16.0) % Plt Count 314 (160-400) X10*3/uL MPV 10.1 (9.4-12.4) fL Immature Gran % (Auto) 0.3 (0.0-0.4) % Neut % (Auto) 60.7 (45-73) % Lymph % (Auto) 27.0 (20-40) % [place] % (Auto) 8.8 (2-11) % Eos % (Auto) 2.7 (0-4) % Baso % (Auto) 0.5 (0-2) % Lymph # (Auto) 2.4 (1.2-4.9) X10*3/uL [place] # (Auto) 0.8 (0.1-1.2) X10*3/uL Eos # (Auto) 0.2 (0.0-0.4) X10*3/uL Baso # (Auto) 0.0 (0.0-0.2) X10*3/uL Abs Immat Gran (auto) 0.03 (0.00-0.03) X10*3/uL Absolute Neuts (auto) 5.3 (2.0-8.3) x10*3/uL Absolute Nucleated RBC 0.000 (0.0-0.012) X10*3/uL Nucleated RBC % (auto) 0.0 (0.0-0.2) /100WBC Sodium 139 (135-145) mmol/L Potassium 3.6 (3.3-5.1) mmol/L Chloride 106 (96-108) mmol/L Carbon Dioxide 24 (22-29) mmol/L Anion Gap 13 (12-20) BUN 14 (9-16) mg/dL Creatinine 0.93 (0.5-1.4) mg/dL Estim Creat Clear Calc 117.9 Estimated GFR > 60 Random Glucose 107 (60-115) mg/dL Calcium 9.6 D (8.4-10.2) mg/dL Magnesium 1.9 (1.6-2.6) mg/dL Total Bilirubin 0.4 (0.0-1.0) mg/dL Direct Bilirubin 0.1 (0.0-0.5) mg/dL AST 21 (5-37) U/L ALT 32 (0-40) U/L Alkaline Phosphatase 87 (39-117) U/L Troponin I High Sens < 2.7 (<3.5-35.0) ng/L Total Protein 7.9 (6.5-8.0) g/dL Albumin 4.3 (3.5-5.0) g/dL Lipase 31 (8-78) U/L Influenza Type A (PCR) NEGATIVE (Negative) Influenza Type B (PCR) NEGATIVE (Negative) RSV RNA Qual (PCR) NEGATIVE (Negative) SARS-CoV-2 RNA (RT-PCR) NEGATIVE (Negative) Independent Interpretation I performed an independent interpretation of an: EKG Interpretation: Sinus rhythm, HR-93, no STEMI, GA/QRS/QTC are within normal limits. Radiology Impression Discussion of test interpretation with radiology: I have reviewed the radiologist's reading. Radiologist Impression: Please see the discussion above External Record Review External record reviewed: Outpatient record, Prior outpatient labs and Prior outpatient radiology Chronic Conditions Patient?s care impacted by: Hypertension Critical Care Time Critical Care Time Critical Care Time: Yes Total Critical Care Time: 30 Attestation: I personally attest to this time spent taking care of the patient. Discharge Plan Discharge Clinical Impression: Alcohol use disorder, moderate, dependence, Alcoholic gastritis Patient Disposition: Home, Self-Care Instructions: Gastritis (ED), Diet for Stomach Ulcers and Gastritis (ED), Alcohol Use Disorder (ED) Additional Instructions: 1. I have given you a list facilities the provide detox services. Please call on Saturday, availability can vary from day-to-day. 2. Prescribed some medication to help with the inflammation of your stomach lining. 3. It is imperative that if you begin experiencing significant withdrawal symptoms please return to this emergency room. Prescriptions: New sucralfate [Carafate] 100 mg/mL suspension 10 ml PO BID Qty: 420 0RF No Action colchicine 0.6 mg tablet 0.6 mg PO DAILY Qty: 14 0RF prednisone 20 mg tablet 20 mg PO DAILY 7 Days Qty: 7 0RF famotidine [Pepcid] 20 mg tablet 20 mg PO DAILY PRN (Reason: abdominal discomfort) Qty: 30 0RF ondansetron 4 mg tablet,disintegrating 4 mg PO Q8H PRN (Reason: nausea and vomiting) Qty: 20 0RF cyclobenzaprine 10 mg tablet 10 mg PO BEDTIME PRN (Reason: muscle spasm) Qty: 7 0RF lidocaine 5 % adhesive patch,medicated 1 patch topical DAILY PRN (Reason: pain) Qty: 15 0RF Rx Instructions: leave on most painful area for up to 12 hrs amlodipine 5 mg tablet 5 mg PO DAILY 30 Days Qty: 30 0RF amlodipine 10 mg tablet 10 mg PO DAILY Qty: 30 1RF lisinopril 10 mg tablet 10 mg PO DAILY Qty: 30 1RF loperamide [Imodium A-D] 2 mg tablet 2 mg PO Q6H PRN (Reason: loose stool) Qty: 14 0RF amlodipine [Norvasc] 10 mg tablet 10 mg PO DAILY Qty: 30 0RF colchicine 0.6 mg capsule 0.6 mg PO DAILY 14 Days Qty: 14 0RF prednisone 20 mg tablet 40 mg PO DAILY 5 Days Qty: 10 0RF
[2023-01-27 15:54] VITALS: BP 163/114; PULSE 89; RESP 16; TEMP 37.2; O2SAT 97; BMI 25.5
[2023-01-27 16:47] LABS: MANUAL DIFF FLAG NO
[2023-01-27 16:49] LABS: Basophils Percent Auto 0.5 % (0-2); Eosinophils Absolute Auto 0.2 X10*3/uL (0.0-0.4); Eosinophils Percent Auto 2.7 % (0-4); Hematocrit 43.7 % (42.0-52.0); Hemoglobin 15.1 g/dl (14.0-18.0); Imm Gran Abs Auto 0.03 X10*3/uL (0.00-0.03); Imm Gran Pct Auto 0.3 % (0.0-0.4); Lymphocytes Absolute Auto 2.4 X10*3/uL (1.2-4.9); Mean Corpuscular HGB Conc 34.6 g/dl (31.0-36.0); Mean Corpuscular Hemoglobin 29.7 pg (27.0-33.0); Mean Platelet Volume 10.1 fL (9.4-12.4); Monocytes Absolute Auto 0.8 X10*3/uL (0.1-1.2); Monocytes Percent Auto 8.8 % (2-11); Neutrophils Absolute Auto 5.3 x10*3/uL (2.0-8.3); Neutrophils Percent Auto 60.7 % (45-73); Platelet Count 314 X10*3/uL (160-400); Red Blood Count 5.08 X10*6/uL (4.60-5.80); Red Cell Distribution Width 12.3 % (11.0-16.0); White Blood Count 8.8 X10*3/uL (4.8-10.8)
[2023-01-27 17:08] LABS: Alanine Aminotransferase 32 U/L (0-40); Albumin Level 4.3 g/dL (3.5-5.0); Alkaline Phosphatase 87 U/L (39-117); Anion Gap 13 (12-20); Aspartate Amino Transferase 21 U/L (5-37); Bilirubin Direct 0.1 mg/dL (0.0-0.5); Bilirubin Total 0.4 mg/dL (0.0-1.0); Blood Urea Nitrogen 14 mg/dL (9-16); Calcium 9.6 mg/dL (8.4-10.2); Carbon Dioxide 24 mmol/L (22-29); Chloride 106 mmol/L (96-108); Creatinine Clr Calc Pharmacy 117.9; Estimated Glomerular Filt Rate > 60; Glucose Random 107 mg/dL (60-115); Lipase 31 U/L (8-78); Magnesium 1.9 mg/dL (1.6-2.6); Potassium 3.6 mmol/L (3.3-5.1); Sodium 139 mmol/L (135-145); Total Protein 7.9 g/dL (6.5-8.0)
[2023-01-27 17:16] LABS: Troponin-I High Sensitivity < 2.7 ng/L (<3.5-35.0)
[2023-01-27 17:42] LABS: Influenza A PCR NEGATIVE (Negative); Influenza B PCR NEGATIVE (Negative); Resp Syncy Virus RNA Qual PCR NEGATIVE (Negative); SARS COV2 PCR INHOUSE NEGATIVE (Negative)
[2023-01-27 21:11] VITALS: BP 172/107; PULSE 80; RESP 18
[2023-01-27] MEDS: Magnesium Hydrox/Alum Hydrox 30 ML ORAL.SUSP PO (22:02)
[2023-01-27] MEDS: Lidocaine HCl Viscous 2 % 15 ML SOLUTION 10 ML MUCOUS MEM (22:02)
[2023-01-27] MEDS: Sucralfate Oral Suspension 1 GM/10 ML ORAL.SUSP PO (22:02)
[2023-01-27 22:03] VITALS: BP 139/104; PULSE 69; RESP 18; O2SAT 96
[2023-01-27] MEDS: amLODIPine Besylate 5 MG TABLET PO (22:03)
== END 2023-01-27 22:14 | disposition home or self-care (01) ==
PROVIDERS: Nurse Practitioner Family; Emergency Provider Student in an Organized Health Care Education/Training Program
DX: K29.20 Alcoholic gastritis without bleeding (principal); F10.20 Alcohol dependence, uncomplicated; Y90.9 Presence of alcohol in blood, level not specified; Z20.822 Contact with and (suspected) exposure to COVID-19; Z20.828 Contact with and (suspected) exposure to other viral communicable diseases
CPT/HCPCS: 0241U; 36415; 71046; 80048; 80076; 83690; 83735; 84484; 85025; 93005; 99283; 99284

== ENCOUNTER → 2023-01-27 15:12 | Outpatient (BNV) | payer OTHER, SELFPAY | PROVIDERS: Emergency Provider Student in an Organized Health Care Education/Training Program; Visit Provider Internal Medicine Cardiovascular Disease | DX: I49.3 Ventricular premature depolarization (principal) | CPT/HCPCS: 93010 ==

== ENCOUNTER 2023-02-18 02:29 | Emergency (ER) | payer OTHER, SELFPAY ==
--- NOTE | 2023-02-18 | ECG_ITS ---
Test Reason : HYPERTENSION Blood Pressure : / mmHG Vent. Rate : 087 BPM Atrial Rate : 087 BPM P-R Int : 172 ms QRS Dur : 096 ms QT Int : 374 ms P-R-T Axes : 033 -04 -11 degrees QTc Int : 450 ms Normal sinus rhythm Possible Left atrial enlargement Minimal voltage criteria for LVH, may be normal variant ( R in aVL ) Borderline ECG When compared with ECG of 27-JAN-2023 15:27, Premature ventricular complexes are no longer Present Referred By: Generic ED Physician Electronically Signed By:SHAW CORTEZ
[2023-02-18 02:50] VITALS: BP 174/119; PULSE 89; RESP 17; TEMP 36.7; O2SAT 97; BMI 25.6
[2023-02-18 03:15] LABS: Basophils Percent Auto 0.3 % (0-2); Eosinophils Absolute Auto 0.3 X10*3/uL (0.0-0.4); Eosinophils Percent Auto 4.3 % (0-4); Hematocrit 43.8 % (42.0-52.0); Hemoglobin 14.9 g/dl (14.0-18.0); Imm Gran Abs Auto 0.02 X10*3/uL (0.00-0.03); Imm Gran Pct Auto 0.3 % (0.0-0.4); Lymphocytes Absolute Auto 2.7 X10*3/uL (1.2-4.9); Lymphocytes Percent Auto 44.8 % (20-40); MANUAL DIFF FLAG NO; Mean Corpuscular Hemoglobin 29.9 pg (27.0-33.0); Mean Platelet Volume 9.7 fL (9.4-12.4); Monocytes Absolute Auto 0.7 X10*3/uL (0.1-1.2); Monocytes Percent Auto 11.5 % (2-11); Neutrophils Absolute Auto 2.4 x10*3/uL (2.0-8.3); Neutrophils Percent Auto 38.8 % (45-73); Platelet Count 298 X10*3/uL (160-400); Red Blood Count 4.98 X10*6/uL (4.60-5.80); Red Cell Distribution Width 12.8 % (11.0-16.0); White Blood Count 6.1 X10*3/uL (4.8-10.8)
[2023-02-18 03:29] LABS: Alanine Aminotransferase 26 U/L (0-40); Albumin Level 4.2 g/dL (3.5-5.0); Alkaline Phosphatase 91 U/L (39-117); Anion Gap 15 (12-20); Aspartate Amino Transferase 21 U/L (5-37); Bilirubin Total 0.3 mg/dL (0.0-1.0); Blood Urea Nitrogen 15 mg/dL (9-16); Carbon Dioxide 25 mmol/L (22-29); Chloride 104 mmol/L (96-108); Creatinine Clr Calc Pharmacy 119.2; Estimated Glomerular Filt Rate > 60; Glucose Random 116 mg/dL (60-115); Potassium 3.7 mmol/L (3.3-5.1); Sodium 140 mmol/L (135-145); Total Protein 8.1 g/dL (6.5-8.0)
[2023-02-18 03:35] LABS: Troponin-I High Sensitivity < 2.7 ng/L (<3.5-35.0)
--- NOTE | 2023-02-18 05:59 | PC.NURSE ---
pt not available to vitals at this time, will attempt to call again
== END 2023-02-18 06:33 | disposition left against medical advice (07) ==
PROVIDERS: Emergency Provider Emergency Medicine
DX: I10 Essential (primary) hypertension (principal); Z79.899 Other long term (current) drug therapy
CPT/HCPCS: 36415; 80053; 84484; 85025; 93005; 99283

== ENCOUNTER → 2023-02-18 03:03 | Outpatient (BNV) | payer OTHER, SELFPAY | PROVIDERS: Emergency Provider Emergency Medicine; Visit Provider Internal Medicine | DX: I10 Essential (primary) hypertension (principal) | CPT/HCPCS: 93010 ==

== ENCOUNTER → 2023-03-25 10:01 | Outpatient (BNV) | payer OTHER, SELFPAY | PROVIDERS: Emergency Provider Internal Medicine; Visit Provider Internal Medicine | DX: R07.9 Chest pain, unspecified (principal) | CPT/HCPCS: 93010 ==

== ENCOUNTER 2023-03-25 12:37 | Emergency (ER) | payer OTHER, SELFPAY ==
--- NOTE | ~2023-03-25 | XR_ITS ---
EXAMINATION: XR CHEST CLINICAL INFORMATION: Chest pain. COMPARISON: None available. TECHNIQUE: 2 views of the chest were obtained. FINDINGS: No significant abnormality is noted involving the heart, lungs, mediastinum, bony thorax or soft tissues. XR/XR chest 2V IMPRESSION: Unremarkable chest examination.
--- NOTE | 2023-03-25 10:01 | ECG_ITS ---
Test Reason : chest pain Blood Pressure : / mmHG Vent. Rate : 088 BPM Atrial Rate : 088 BPM P-R Int : 162 ms QRS Dur : 092 ms QT Int : 360 ms P-R-T Axes : 041 013 -18 degrees QTc Int : 435 ms Normal sinus rhythm Possible Left atrial enlargement Minimal voltage criteria for LVH, may be normal variant ( R in aVL ) T wave abnormality, consider inferior ischemia Abnormal ECG When compared with ECG of 18-FEB-2023 03:03, No significant change was found Referred By: Juan Daniel Marcial Electronically Signed By:SHAW CORTEZ
[2023-03-25 14:20] VITALS: BP 123/89; PULSE 96; RESP 18; TEMP 37.2; O2SAT 97; BMI 25.4
--- NOTE | 2023-03-25 14:21 | ED_ITS ---
HPI - General Adult General Chief complaint: Chest Pain Stated complaint: Rib cage Time Seen by Provider: 03/25/23 21:42 Source: patient Mode of arrival: ambulatory Limitations: no limitations History of Present Illness HPI narrative: Patient no significant past medical history complaining of pain in by lateral lower ribs for last 3 days no relation with breathing no cough no shortness of breath no nausea no vomiting no rash no fever or chills no injury Related Data Previous Rx's Medication Instructions Recorded famotidine 20 mg tablet (Pepcid) 20 mg PO DAILY PRN abdominal 10/14/21 discomfort #30 tabs ondansetron 4 mg disintegrating 4 mg PO Q8H PRN nausea and 10/14/21 tablet vomiting #20 tabs amlodipine 5 mg tablet 5 mg PO DAILY 30 days #30 tabs 02/15/22 cyclobenzaprine 10 mg tablet 10 mg PO BEDTIME PRN muscle spasm 02/15/22 #7 tabs lidocaine 5 % topical patch 1 patch topical DAILY PRN pain #15 02/15/22 ea colchicine 0.6 mg tablet 0.6 mg PO DAILY #14 tabs 03/09/22 prednisone 20 mg tablet 20 mg PO DAILY 7 days #7 tabs 03/09/22 amlodipine 10 mg tablet 10 mg PO DAILY #30 tabs 05/05/22 lisinopril 10 mg tablet 10 mg PO DAILY #30 tabs 05/05/22 loperamide 2 mg tablet (Imodium 2 mg PO Q6H PRN loose stool #14 05/08/22 A-D) tabs amlodipine 10 mg tablet (Norvasc) 10 mg PO DAILY #30 tabs 09/09/22 colchicine 0.6 mg capsule 0.6 mg PO DAILY 2 weeks #14 caps 10/09/22 prednisone 20 mg tablet 40 mg (2 x 20 mg) PO DAILY 5 days 10/09/22 #10 tabs sucralfate 100 mg/mL oral 10 ml PO BID #420 mL 01/27/23 suspension (Carafate) ibuprofen 600 mg tablet 600 mg PO Q6H PRN fever or pain 03/25/23 #30 tabs Allergies Allergy/AdvReac Type Severity Reaction Status Date / Time No Known Allergies Allergy Verified 10/09/22 07:11 Review of Systems 2 Review of Systems: Yes all other systems are reviewed and are negative PMFSH Past Medical History Medical History No pertinent past medical history Social History Social History Alcohol intake: current Alcohol intake frequency: 3 or more drinks per day Alcohol type: beer and hard liquor Advance Directives: No Advance Directives Information Provided: No Physical Exam ED Vital Signs: Vital Signs - 24 hr 03/25/23 14:20 03/25/23 17:39 03/25/23 20:26 Temperature 99.0 F 98.2 F 98.2 F Pulse Rate 96 79 75 Respiratory Rate 18 18 16 Blood Pressure 123/89 134/80 121/85 Pulse Oximetry 97 97 97 Oxygen Delivery Method Room Air Room Air Room Air 03/25/23 22:14 Temperature 98.2 F Pulse Rate 73 Respiratory Rate 16 Blood Pressure 135/89 Pulse Oximetry 98 Oxygen Delivery Method Room Air BMI result Body Mass Index 25.4 Appearance: Alert. Oriented X3. No acute distress. Neck: Normal inspection. Neck supple. CVS: Normal heart rate and rhythm. Pulses normal. Respiratory: No respiratory distress. Equal air entry bilateral, no wheezing/rales/rhonchi mild bilateral lower rib tenderness Abdomen: Soft and nontender. Bowel sounds are present, no mass palpable, no CVA tenderness Skin: Skin warm and dry. Normal skin color. Normal skin turgor. Extremities: No lower extremity edema. No calf tenderness Neuro: Oriented X 3. Course Course Course Narrative: This is an RME: Additional HPI, ROS, PE not included below will be deferred to primary provider. This is a [id number]-male, with a hx of htn, hld and chronic alcohol use presenting to the ER with complaints of chest pain x 2 days. He is endorsing nausea, diarrhea, and headaches. No recent travel, surgery, hospitalizations. Plan: Labs, viral swabs, ekg, chest xray Medications Administered Discontinued Medications Generic Name Dose Route Start Last Admin Trade Name Freq PRN Reason Stop Dose Admin Ibuprofen 600 mg 03/25/23 22:16 03/25/23 22:23 Ibuprofen 600 Mg Tablet PO 03/25/23 22:17 600 mg ONCE ONE Administration Medical Decision Making Medical Decision Making MDM Narrative: Patient with nonspecific musculoskeletal pain bilateral lower ribs no rash noticed lungs are clear no pneumonia cardiac enzymes negative EKG normal Differential Diagnosis Differential Diagnoses: The differential diagnosis associated with the presentation includes ACS/atypical chest pain/pneumonia/ Lab Data MDM Lab Attestation statement: I reviewed the patient's lab results. 03/25/23 14:48 03/25/23 14:48 Labs: Lab Results 03/25/23 Range/Units 14:48 WBC 10.1 (4.8-10.8) X10*3/uL RBC 5.03 (4.60-5.80) X10*6/uL Hgb 15.2 (14.0-18.0) g/dl Hct 43.5 (42.0-52.0) % MCV 86.5 (80.0-98.0) fL MCH 30.2 (27.0-33.0) pg MCHC 34.9 (31.0-36.0) g/dl RDW 12.4 (11.0-16.0) % Plt Count 354 (160-400) X10*3/uL MPV 9.8 (9.4-12.4) fL Immature Gran % (Auto) 0.3 (0.0-0.4) % Neut % (Auto) 64.4 (45-73) % Lymph % (Auto) 25.2 (20-40) % [place] % (Auto) 7.9 (2-11) % Eos % (Auto) 1.9 (0-4) % Baso % (Auto) 0.3 (0-2) % Lymph # (Auto) 2.6 (1.2-4.9) X10*3/uL [place] # (Auto) 0.8 (0.1-1.2) X10*3/uL Eos # (Auto) 0.2 (0.0-0.4) X10*3/uL Baso # (Auto) 0.0 (0.0-0.2) X10*3/uL Abs Immat Gran (auto) 0.03 (0.00-0.03) X10*3/uL Absolute Neuts (auto) 6.5 (2.0-8.3) x10*3/uL Absolute Nucleated RBC 0.000 (0.0-0.012) X10*3/uL Nucleated RBC % (auto) 0.0 (0.0-0.2) /100WBC Sodium 140 (135-145) mmol/L Potassium 4.1 (3.3-5.1) mmol/L Chloride 107 (96-108) mmol/L Carbon Dioxide 22 (22-29) mmol/L Anion Gap 15 (12-20) BUN 17 H (9-16) mg/dL Creatinine 0.94 (0.5-1.4) mg/dL Estim Creat Clear Calc 116.7 Estimated GFR > 60 Random Glucose 110 (60-115) mg/dL Calcium 9.6 D (8.4-10.2) mg/dL Total Bilirubin 0.3 (0.0-1.0) mg/dL Direct Bilirubin 0.1 (0.0-0.5) mg/dL AST 16 (5-37) U/L ALT 29 (0-40) U/L Alkaline Phosphatase 101 (39-117) U/L Troponin I High Sens < 2.7 (<3.5-35.0) ng/L Total Protein 8.2 H (6.5-8.0) g/dL Albumin 4.4 (3.5-5.0) g/dL Lipase 35 (8-78) U/L COVID-19 ([facility]) Negative (Negative) COVID-19 Clin Com See Note Influenza Type A ([facility]FAEL) Negative (Negative) Influenza Type B (RAFAEL) Negative (Negative) Influenza A & B Note See Note Independent Interpretation I performed an independent interpretation of an: EKG Interpretation: Normal sinus rhythm heart rate 88 beats per minute normal interval normal axis no acute ST wave changes no acute ischemia Discharge Plan Discharge Clinical Impression: Musculoskeletal chest pain Patient Disposition: Home, Self-Care Instructions: Noncardiac Chest Pain (ED) Additional Instructions: Cause of your pain is not clear the chest x-ray and blood tests are normal Likely musculoskeletal pain Take ibuprofen for pain Follow-up with your PCP as needed Prescriptions: New ibuprofen 600 mg tablet 600 mg PO Q6H PRN (Reason: fever or pain) Qty: 30 0RF No Action colchicine 0.6 mg tablet 0.6 mg PO DAILY Qty: 14 0RF prednisone 20 mg tablet 20 mg PO DAILY 7 Days Qty: 7 0RF famotidine [Pepcid] 20 mg tablet 20 mg PO DAILY PRN (Reason: abdominal discomfort) Qty: 30 0RF ondansetron 4 mg tablet,disintegrating 4 mg PO Q8H PRN (Reason: nausea and vomiting) Qty: 20 0RF cyclobenzaprine 10 mg tablet 10 mg PO BEDTIME PRN (Reason: muscle spasm) Qty: 7 0RF lidocaine 5 % adhesive patch,medicated 1 patch topical DAILY PRN (Reason: pain) Qty: 15 0RF Rx Instructions: leave on most painful area for up to 12 hrs amlodipine 5 mg tablet 5 mg PO DAILY 30 Days Qty: 30 0RF amlodipine 10 mg tablet 10 mg PO DAILY Qty: 30 1RF lisinopril 10 mg tablet 10 mg PO DAILY Qty: 30 1RF loperamide [Imodium A-D] 2 mg tablet 2 mg PO Q6H PRN (Reason: loose stool) Qty: 14 0RF amlodipine [Norvasc] 10 mg tablet 10 mg PO DAILY Qty: 30 0RF colchicine 0.6 mg capsule 0.6 mg PO DAILY 14 Days Qty: 14 0RF prednisone 20 mg tablet 40 mg PO DAILY 5 Days Qty: 10 0RF sucralfate [Carafate] 100 mg/mL suspension 10 ml PO BID Qty: 420 0RF Stand Alone Forms: Work/School Release Interventions: ED Discharge Assessment Last Done: 03/25/23 22:25 Discharge Date/Time: 03/25/23 22:25
[2023-03-25 14:54] LABS: MANUAL DIFF FLAG NO
[2023-03-25 14:56] LABS: Basophils Percent Auto 0.3 % (0-2); Eosinophils Absolute Auto 0.2 X10*3/uL (0.0-0.4); Eosinophils Percent Auto 1.9 % (0-4); Hematocrit 43.5 % (42.0-52.0); Hemoglobin 15.2 g/dl (14.0-18.0); Imm Gran Abs Auto 0.03 X10*3/uL (0.00-0.03); Imm Gran Pct Auto 0.3 % (0.0-0.4); Lymphocytes Absolute Auto 2.6 X10*3/uL (1.2-4.9); Lymphocytes Percent Auto 25.2 % (20-40); Mean Corpuscular HGB Conc 34.9 g/dl (31.0-36.0); Mean Corpuscular Hemoglobin 30.2 pg (27.0-33.0); Mean Corpuscular Volume 86.5 fL (80.0-98.0); Mean Platelet Volume 9.8 fL (9.4-12.4); Monocytes Absolute Auto 0.8 X10*3/uL (0.1-1.2); Monocytes Percent Auto 7.9 % (2-11); Neutrophils Absolute Auto 6.5 x10*3/uL (2.0-8.3); Neutrophils Percent Auto 64.4 % (45-73); Platelet Count 354 X10*3/uL (160-400); Red Blood Count 5.03 X10*6/uL (4.60-5.80); Red Cell Distribution Width 12.4 % (11.0-16.0); White Blood Count 10.1 X10*3/uL (4.8-10.8)
[2023-03-25 15:10] LABS: COVID-19 Test Negative (Negative); IDNOW Serial# 58CA691E; IDNOW Serial# 9DB6401D; Influenza A Negative (Negative); Influenza B2 Negative (Negative)
[2023-03-25 15:16] LABS: Alanine Aminotransferase 29 U/L (0-40); Albumin Level 4.4 g/dL (3.5-5.0); Alkaline Phosphatase 101 U/L (39-117); Anion Gap 15 (12-20); Aspartate Amino Transferase 16 U/L (5-37); Bilirubin Direct 0.1 mg/dL (0.0-0.5); Bilirubin Total 0.3 mg/dL (0.0-1.0); Blood Urea Nitrogen 17 mg/dL (9-16); Calcium 9.6 mg/dL (8.4-10.2); Carbon Dioxide 22 mmol/L (22-29); Chloride 107 mmol/L (96-108); Creatinine Clr Calc Pharmacy 116.7; Estimated Glomerular Filt Rate > 60; Glucose Random 110 mg/dL (60-115); Lipase 35 U/L (8-78); Potassium 4.1 mmol/L (3.3-5.1); Sodium 140 mmol/L (135-145); Total Protein 8.2 g/dL (6.5-8.0)
[2023-03-25 15:20] LABS: Troponin-I High Sensitivity < 2.7 ng/L (<3.5-35.0)
[2023-03-25 17:39] VITALS: BP 134/80; PULSE 79; RESP 18; TEMP 36.8; O2SAT 97
[2023-03-25 20:26] VITALS: BP 121/85; PULSE 75; RESP 16; TEMP 36.8; O2SAT 97
[2023-03-25 22:14] VITALS: BP 135/89; PULSE 73; RESP 16; TEMP 36.8; O2SAT 98
[2023-03-25] MEDS: Ibuprofen 600 MG TABLET PO (22:23)
== END 2023-03-25 22:25 | disposition home or self-care (01) ==
PROVIDERS: Physician Assistant Medical; Emergency Provider Internal Medicine
DX: R07.89 Other chest pain (principal); R07.81 Pleurodynia; Z79.899 Other long term (current) drug therapy; Z11.52 Encounter for screening for COVID-19
CPT/HCPCS: 71046; 80048; 80076; 83690; 84484; 85025; 87502; 87635; 93005; 99283; 99284

== ENCOUNTER 2023-04-03 01:16 | Emergency (ER) | payer OTHER, SELFPAY ==
--- NOTE | ~2023-04-03 | XR_ITS ---
EXAMINATION: XR FOOT, LEFT CLINICAL INFORMATION: Pain. COMPARISON: None available. TECHNIQUE: AP, lateral, and oblique views of the left foot. FINDINGS: The bones and soft tissues are normal. No fracture. Alignment is anatomic. Joint spaces are maintained. XR/XR foot LT 2V IMPRESSION: No significant abnormality identified.
[2023-04-03 01:20] VITALS: BP 135/91; PULSE 86; RESP 18; TEMP 36.9; O2SAT 96; BMI 26.0
[2023-04-03 01:55] VITALS: BP 124/88; PULSE 82; RESP 16; TEMP 36.8; O2SAT 97
[2023-04-03 03:42] VITALS: BP 147/90; PULSE 64; RESP 16; TEMP 36.2; O2SAT 97
--- NOTE | 2023-04-03 04:08 | ED.LOWEXIN ---
HPI - Extremity Injury (Lower) General Chief Complaint: Extremity Injury, Lower Stated Complaint: L Foot pain/ No Inj Time Seen by Provider: 04/03/23 02:55 Source: patient Mode of arrival: ambulatory History of Present Illness HPI Narrative: Left lateral malleolus with erythema and pain since Saturday, patient states he has a history of gout and this feels very similar. Related Data Previous Rx's Medication Instructions Recorded famotidine 20 mg tablet (Pepcid) 20 mg PO DAILY PRN abdominal 10/14/21 discomfort #30 tabs ondansetron 4 mg disintegrating 4 mg PO Q8H PRN nausea and 10/14/21 tablet vomiting #20 tabs amlodipine 5 mg tablet 5 mg PO DAILY 30 days #30 tabs 02/15/22 cyclobenzaprine 10 mg tablet 10 mg PO BEDTIME PRN muscle spasm 02/15/22 #7 tabs lidocaine 5 % topical patch 1 patch topical DAILY PRN pain #15 02/15/22 ea colchicine 0.6 mg tablet 0.6 mg PO DAILY #14 tabs 03/09/22 prednisone 20 mg tablet 20 mg PO DAILY 7 days #7 tabs 03/09/22 amlodipine 10 mg tablet 10 mg PO DAILY #30 tabs 05/05/22 lisinopril 10 mg tablet 10 mg PO DAILY #30 tabs 05/05/22 loperamide 2 mg tablet (Imodium 2 mg PO Q6H PRN loose stool #14 05/08/22 A-D) tabs amlodipine 10 mg tablet (Norvasc) 10 mg PO DAILY #30 tabs 09/09/22 colchicine 0.6 mg capsule 0.6 mg PO DAILY 2 weeks #14 caps 10/09/22 prednisone 20 mg tablet 40 mg (2 x 20 mg) PO DAILY 5 days 10/09/22 #10 tabs sucralfate 100 mg/mL oral 10 ml PO BID #420 mL 01/27/23 suspension (Carafate) ibuprofen 600 mg tablet 600 mg PO Q6H PRN fever or pain 03/25/23 #30 tabs colchicine 0.6 mg tablet 0.6 mg PO DAILY #3 tabs 04/03/23 Allergies Allergy/AdvReac Type Severity Reaction Status Date / Time No Known Allergies Allergy Verified 04/03/23 01:23 Review of Systems Review of Systems: Pertinent positives and negatives as stated in HPI PMFSH Past Medical History Source: nursing notes reviewed Medical History No pertinent past medical history Social History Social History Alcohol intake: current Alcohol intake frequency: 3 or more drinks per day Alcohol type: beer and hard liquor Advance Directives: No Advance Directives Information Provided: Yes Physical Exam Vital Signs: Vital Signs: Last Vital Signs Temp 97.2 F 04/03/23 03:42 Pulse 64 04/03/23 03:42 Resp 16 04/03/23 03:42 BP 147/90 H 04/03/23 03:42 Pulse Ox 97 04/03/23 03:42 O2 Del Method Room Air 04/03/23 03:42 BMI result Body Mass Index 26.0 VITAL SIGNS: Reviewed. GENERAL: Well developed, well nourished, in no acute distress. HEAD: Normocephalic/atraumatic EYES: PERRLA, EOMI LUNGS: Normal breath sounds. No adventitious sounds or accessory muscle use. SpO2<97> CARDIOVASCULAR: Regular rate and rhythm without noted murmurs ABDOMEN: Soft, non-tender, non-distended with bowel sounds. MUSCULOSKELETAL: No tenderness, deformities, or effusions noted on gross inspection. EXTREMITIES: No cyanosis, clubbing or edema. LEFT FOOT: Erythema and tenderness to palpation left lateral malleolus SKIN: Inspection of the skin reveals no rashes NEUROLOGIC: Alert and oriented x 4. Strength and sensation to light touch were grossly intact x 4. Medical Decision Making Medical Decision Making MDM Narrative: 48-year-old male with history and clinical presentation consistent with acute gout flare and was treated with initial dose of 1.2 mg of colchicine and followed by 0.6 mg 1 hour later. X-ray of foot without acute findings. Differential Diagnosis Differential Diagnoses: The differential diagnosis associated with the presentation includes Please see the discussion Admission/Observation Consideration of admission/observation: Escalation of care including admission/observation considered Please see the discussion above Radiology Impression Discussion of test interpretation with radiology: I have reviewed the radiologist's reading. Radiologist Impression: Please see the discussion above Discharge Plan Discharge Clinical Impression: Gout attack Patient Disposition: Home, Self-Care Instructions: Low Purine Diet (ED), Gout (ED) Additional Instructions: 1. Please complete the course of colchicine as prescribed. 2. Please follow-up with your primary care doctor. Return to the ER for any worsening symptoms. Prescriptions: New colchicine 0.6 mg tablet 0.6 mg PO DAILY Qty: 3 0RF No Action colchicine 0.6 mg tablet 0.6 mg PO DAILY Qty: 14 0RF prednisone 20 mg tablet 20 mg PO DAILY 7 Days Qty: 7 0RF famotidine [Pepcid] 20 mg tablet 20 mg PO DAILY PRN (Reason: abdominal discomfort) Qty: 30 0RF ondansetron 4 mg tablet,disintegrating 4 mg PO Q8H PRN (Reason: nausea and vomiting) Qty: 20 0RF cyclobenzaprine 10 mg tablet 10 mg PO BEDTIME PRN (Reason: muscle spasm) Qty: 7 0RF lidocaine 5 % adhesive patch,medicated 1 patch topical DAILY PRN (Reason: pain) Qty: 15 0RF Rx Instructions: leave on most painful area for up to 12 hrs amlodipine 5 mg tablet 5 mg PO DAILY 30 Days Qty: 30 0RF amlodipine 10 mg tablet 10 mg PO DAILY Qty: 30 1RF lisinopril 10 mg tablet 10 mg PO DAILY Qty: 30 1RF loperamide [Imodium A-D] 2 mg tablet 2 mg PO Q6H PRN (Reason: loose stool) Qty: 14 0RF amlodipine [Norvasc] 10 mg tablet 10 mg PO DAILY Qty: 30 0RF colchicine 0.6 mg capsule 0.6 mg PO DAILY 14 Days Qty: 14 0RF prednisone 20 mg tablet 40 mg PO DAILY 5 Days Qty: 10 0RF sucralfate [Carafate] 100 mg/mL suspension 10 ml PO BID Qty: 420 0RF ibuprofen 600 mg tablet 600 mg PO Q6H PRN (Reason: fever or pain) Qty: 30 0RF
[2023-04-03] MEDS: Colchicine 0.6 MG TABLET 1.2 MG PO (04:35)
[2023-04-03] MEDS: Colchicine 0.6 MG TABLET PO (04:36)
--- NOTE | 2023-04-03 04:41 | PC.NURSE ---
right leg tender to touch, warm and red, provider into assess pt, reviewed discharge instructions with pt. pt verbalized understanding. no sign of distress upon discharge.
== END 2023-04-03 04:42 | disposition home or self-care (01) ==
PROVIDERS: Emergency Provider Student in an Organized Health Care Education/Training Program
DX: M10.9 Gout, unspecified (principal); M79.672 Pain in left foot; I10 Essential (primary) hypertension; E78.5 Hyperlipidemia, unspecified; Z79.899 Other long term (current) drug therapy
CPT/HCPCS: 73620; 99283; 99284

== ENCOUNTER 2023-04-10 09:37 | Outpatient (AMB) | payer OTHER, SELFPAY ==
[2023-04-10 09:56] VITALS: BP 134/90; PULSE 83; O2SAT 98; BMI 25.2
--- NOTE | 2023-04-10 09:56 | A.OFFPC_ITS ---
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 Has been seen only at the ER at [facility] for acute gout attacks, hypertension and gastritis likely due to alcohol intake. He is currently only taking lisinopril 10 mg daily. On review medical record, he also has been on amlodipine and has also been diagnosed to have hyperlipidemia. Denies any chest pain, headache, lightheadedness or palpitations. Complains of frequent anxiety attacks and depressed mood present now for the last several months. He states that he has received counseling/therapy in the past and would like to be referred again. Denies having had any medications for treatment of his anxiety depression. [facility] Medical History (Updated 05/28/23 @ 01:16 by Monisha Diggs MD) Anxiety and depression Hx of gout Family history of coronary artery disease Hyperlipidemia Essential hypertension Surgical History (Updated 05/28/23 @ 01:16 by Monisha Diggs MD) No pertinent past surgical history Family History Paternal Uncle Substance use disorder Hx of myocardial infarction, Onset Age: 70 Maternal Uncle Substance use disorder History of CVA (cerebrovascular accident) Brother Mental health disorder Brother Leukemia Father Hx of myocardial infarction Diabetes mellitus Paternal Uncle Hx of myocardial infarction, Onset Age: 60 Paternal Uncle Hx of myocardial infarction, Onset Age: 60 Paternal Aunt Hx of myocardial infarction, Onset Age: 80 Sister Thyroid disorder Maternal Grandfather Colon cancer Social History (Updated 05/28/23 @ 01:26 by Monisha Diggs MD) Housing: Apartment Alcohol intake: current Alcohol intake frequency: holidays/special occasions only Alcohol type: beer and hard liquor Comment: History of heavy drinking in the past , at least 2 drinks daily Patient Tobacco Use Status: Never used Tobacco e-Cigarette/Vaping Use: Never Used service: No Cognitive needs: No Hearing needs: No Vision needs: No Questionnaire PHQ-9 Over the last 2 weeks, how often have you been bothered by any of the following problems? 1. Little interest or pleasure in doing things: several days 2. Feeling down, depressed, or hopeless: more than half the days 3. Trouble falling or staying asleep, or sleeping too much: more than half the days 4. Feeling tired or having little energy: not at all 5. Poor appetite or overeating: more than half the days 6. Feeling bad about yourself - or that you are a failure or have let yourself or your family down: more than half the days 7. Trouble concentrating on things, such as reading the newspaper or watching television: several days 8. Moving or speaking so slowly that other people could have noticed. Or the opposite - being so fidgety or restless that you have been moving around a lot more than usual: several days 9. Thoughts that you would be better off or of hurting yourself in some way: not at all Total score: 11 Depression Screening Interpretation: Positive Depression Screening Follow-up: Existing condition, In treatment, New Medication prescribed and Community Mental Health Worker F/U (Referred to Rosibel Turk for assistance in getting in to see a therapist) Depression Screening Done: Yes 48554 - PHQ-9 Billing: Yes Source: Developed by Drs. Uzair Forbes, Vianney Dougherty, Rogers Jose and colleagues, with an educational papo from [employer] book. Thrive Questionnaire Date Thrive assessed: 04/10/23 I am a: Patient What is your living situation today?: I have a steady place to live Within the past 12 months, did the food you bought not last and you didn't have the money to get more?: Never true Within the past 12 months, did you worry whether your food would run out before you got money to buy more?: Never true Do you have trouble paying for medicines?: No Do you have trouble getting transportation to medical appointments?: No Do you have trouble paying your heating and electricity bill?: No Do you have trouble taking care of your child, family member or friend?: No Do you have trouble with day-to-day activities such as bathing, preparing meals, shopping, managing finances, etc.?: No Are you currently unemployed and looking for a job?: No Are you interested in more education?: No THRIVE Score: 0 AUDIT C Alcohol Use Questionnaire (AUDIT-C) 1. How often do you have a drink containing alcohol?: Monthly or less 2. How many drinks containing alcohol do you have on a typical day when you are drinking?: 1 or 2 3. How often do you have six or more drinks on one occasion?: Never Total Score: 1 ROSALINE-7 AMB Questionnaire ROSALINE-7 Date ROSALINE - 7 assessed: 04/10/23 Feeling nervous, anxious, or on edge: 2 = More than half the days Not being able to stop or control worryin = More than half the days Worrying too much about different things: 2 = More than half the days Trouble relaxin = More than half the days Being so restless that it is hard to sit still: 2 = More than half the days Becoming easily annoyed or irritable: 2 = More than half the days Feeling afraid as if something awful might happen: 3 = Nearly every day Total ROSALINE-7 score (0-4 normal; 5-9 mild; 10-14 moderate; 15-21 severe): 15 Source: Developed by Drs. Uzair Forbes, Vianney Dougherty, Rogers Jose and colleagues, with an educational papo from [employer] book. ROSALINE-7 Assessment Billing ROSALINE-7 Assessment Tool: ROSALINE-7 Assessment 28916 Review of Systems Const Denies body aches, Denies fatigue, Denies fever(s), Denies headache(s) and Denies weakness Eyes Denies change in vision ENT Denies dizziness, Denies headache(s), Denies nasal congestion and Denies nasal discharge Card Denies chest pain, Denies lightheadedness, Denies palpitations and Denies dyspnea Resp Denies chest congestion, Denies cough, Denies dyspnea and Denies wheezing GI Denies abdominal pain, Denies change in bowel habits and Denies heartburn Denies hematuria, Denies difficulty urinating, Denies dysuria, Denies urinary frequency and Denies urinary urgency Musc Details: History of recurrent swelling and pain in left big toe, occasionally on lateral aspect of left foot and left wrist Skin/Breast Denies rash Neuro Denies dizziness, Denies headache(s) and Denies weakness Psych Reports as per HPI Endo Denies fatigue, Denies polydipsia, Denies polyuria and Denies palpitations Arian/Lymph Denies easy bruising Aller/Immun Denies seasonal rhinorrhea and Denies wheezing Physical exam (Primary Care) Vital Signs: Last Vital Signs Pulse 83 04/10/23 09:56 BP 134/90 H 04/10/23 09:56 Pulse Ox 98 04/10/23 09:56 Oxygen Delivery Method Room Air 04/10/23 09:56 BMI result Body Mass Index 25.2 Tobacco/Smoking Status: Tobacco use Status Tobacco use date assessed 04/10/23 04/10/23 10:03 Patient Tobacco Use Status Never used Tobacco 04/10/23 10:03 e-Cigarette/Vaping Use Never Used 04/10/23 10:03 PHQ-9: PHQ-9 Score PHQ-9: Total score 11 05/28/23 01:10 Depression Screening Interpretation: Positive Depression Screening Follow-up: Existing condition, In treatment, New Medication prescribed and Community Mental Health Worker F/U (Referred to Rosibel Turk for assistance in getting in to see a therapist) Thrive Assessment: Date of Thrive Assessment Date Thrive assessed 04/10/23 04/10/23 10:07 Const General: comfortable, no acute distress and alert Orientation/consciousness: patient oriented x3 Limitations: no limitations HENMT Ears: external ears normal, TM's normal bilaterally and EAC's normal General nose exam: Normal external nose present and No nasal discharge present Mouth: Normal oral and palatal mucosa present, oropharynx normal and moist mucous membranes Eyes General: appearance normal, both eyes and all related structures Conjunctivae: conjunctivae normal Sclerae: sclerae normal Pupils: Equal, round and reactive pupils present EOM: EOMs intact bilaterally Neck Neck: Yes full ROM, Yes no lymphadenopathy and Yes supple Resp Effort & Inspection: normal respiratory effort and able to speak in complete sentences Auscultation: clear to auscultation bilaterally Cardio Rate: regular rate Rhythm: regular rhythm Heart sounds: S1 normal heart sound present and S2 normal heart sound present GI Palpation (GI): Soft to palpation, nontender and no masses Auscultation: normal bowel sounds Back/Spine/Pelvis Back: No back tenderness Skin General skin exam: no rashes or lesions noted Neuro General: patient oriented x3, gait normal, tone normal, moves all extremities, Normal light touch and pain sensation and no focal motor deficits Cranial nerves: Yes CN's II-XII intact bilaterally and Yes Equal, round and reactive pupils present Cognition (Neuro): normal cognition Extrem General: Yes full ROM, Yes no joint enlargement, Yes no clubbing, cyanosis or edema and Yes no calf tenderness Psych Appearance: grossly normal and well kempt Mental Status: mental status grossly normal Speech and movement: Normal speech and movement present Affect: normal affect Attitude: cooperative Thought process: Normal thought process present Thought content: Normal thought content present, suicidality and no homicidality Office Procedures Flu Questionnaire Does the patient have a severe egg allergy?: No Does the patient have severe life threatening allergies?: No Does the patient have a fever or illness today?: No Has the patient ever had Guillain-[place] Syndrome?: No Has the patient ever had any past reaction to a flu shot?: No Immunizations flu vacc [id number] 6mos up(PF) 60 mcg(15 mcgx4)/0.5 mL IM syringe Performing Provider: Monisha Diggs MD Performing Location: [facility] Administered by: Naomi Engel CMA on 04/10/23 11:14 Dose Route Admin Location Dispensed Lot Number Expiration Date ND Small [employer]ician 0.5 mL IM Right Deltoid 0.5 mL [id number] 08/18/23 97450-625-79 GBS VIS Given Date VIS Provided VIS Publication Date 04/10/23 Single Vaccine 20 Eligibility Eligibility Date Funding Source Not [facility] Eligible 04/10/23 Private Results Reviewed Results Reviewed: NTERED: 03/25/23-[address]: Physician,Unknown ORDERED: CBC Auto Diff Test Result Flag Reference WBC 10.1 4.8-10.8 X10*3/uL RBC 5.03 4.60-5.80 X10*6/uL HGB 15.2 14.0-18.0 g/dl HCT 43.5 42.0-52.0 % MCV 86.5 80.0-98.0 fL MCH 30.2 27.0-33.0 pg MCHC 34.9 31.0-36.0 g/dl RDW 12.4 11.0-16.0 % PLT 354 160-400 X10*3/uL MPV 9.8 9.4-12.4 fL Neut Pct Auto 64.4 45-73 % ImGran Pct Auto 0.3 0.0-0.4 % Lymp Pct Auto 25.2 20-40 % [place] Pct Auto 7.9 2-11 % Eos Pct Auto 1.9 0-4 % Baso Pct Auto 0.3 0-2 % NRBC Pct Auto 0.0 0.0-0.2 /100WBC ANC Neut Abs # 6.5 2.0-8.3 x10*3/uL ImGran Abs Auto 0.03 0.00-0.03 X10*3/uL Lymph Abs Auto 2.6 1.2-4.9 X10*3/uL [place] Abs Auto 0.8 0.1-1.2 X10*3/uL Eos Abs Auto 0.2 0.0-0.4 X10*3/uL Baso Abs Auto 0.0 0.0-0.2 X10*3/uL NRBC Abs Auto 0.000 0.0-0.012 X10*3/uL ENTERED: 03/25/23-[address] [facility] [address]: Physician,Unknown ORDERED: Liver Panel, BMP, Lip Test Result Flag Reference Sodium 140 135-145 mmol/L Potassium 4.1 3.3-5.1 mmol/L CL 107 96-108 mmol/L CO2 22 22-29 mmol/L Gap 15 12-20 BUN 17 H 9-16 mg/dL Creat 0.94 0.5-1.4 mg/dL Estimated CrCl 116.7 eGFR (calculated from the MDRD study equation) and eCrCl (calculated from the Cockcroft-Gault equation) are based on different parameters and may not yield comparable results. If eCrCl result is absurd, please check patient's height/weight. EGFR > 60 NOTE: For -[place] individuals, multiply the result by 1.210. Chronic Kidney Disease: Estimated GFR < 60 mL/min/1.73m2 Severe Kidney Disease: Estimated GFR < 15 mL/min/1.73m2 Glucose, Random 110 60-115 mg/dL CA 9.6 # 8.4-10.2 mg/dL Total Bili 0.3 0.0-1.0 mg/dL Direct Bili 0.1 0.0-0.5 mg/dL AST (GOT) 16 5-37 U/L ALT (GPT) 29 0-40 U/L Protein, Total 8.2 H 6.5-8.0 g/dL Alb 4.4 3.5-5.0 g/dL Alk Phos 101 39-117 U/L Lipase 35 8-78 U/L Assessment and Plan Assessment & Plan (1) Essential hypertension: Code(s): I10 - Essential (primary) hypertension Plan: Prescription sent for lisinopril but dose increased to 20 mg 1 tablet daily. Reinforced importance of following a low-salt diet and getting regular exercise, cutting back on alcohol intake (2) Hyperlipidemia: Code(s): E78.5 - Hyperlipidemia, unspecified Qualifiers: Hyperlipidemia type: unspecified Qualified Code(s): E78.5 - Hyperlipidemia, unspecified Plan: Fasting lipid panel ordered, encouraged to follow a low-cholesterol diet getting regular exercise at least 30 minutes daily, and absence from alcohol (3) Hx of gout: Code(s): Z87.39 - Personal history of other diseases of the musculoskeletal system and connective tissue Plan: Ordered serum uric acid level, advised abstinence from alcohol and going on a low purine diet (4) Anxiety and depression: Code(s): F41.9 - Anxiety disorder, unspecified; F32.A - Depression, unspecified Plan: Will start on buspirone 5 mg per tablet to take 1 3 times a day, referred to ARIC Gleason, for assistance in getting an appointment for psychotherapy wheels have him follow-up in 4 (5) Family history of coronary artery disease: Code(s): Z82.49 - Family history of ischemic heart disease and other diseases of the circulatory system Plan: Stressed importance of getting hypertension, lipids, fasting glucose in good control, strongly advised absence from alcohol. Will refer to cardiology for further evaluation, due to strong family history for early NH Orders: Orders Lipid Panel 04/13/23 I10 - Essential (primary) hypertension, E78.5 - Hyperlipidemia, unspecified, Z82.49 - Family history of ischemic heart disease and other diseases of the circulatory system Influenza [id number] Immunization 04/10/23 Z23 - Encounter for immunization Uric Acid 04/13/23 Z87.39 - Personal history of other diseases of the musculoskeletal system and connective tissue Referrals Cardiology Referral Z82.49 - Family history of ischemic heart disease and other diseases of the circulatory system, E78.5 - Hyperlipidemia, unspecified, I10 - Essential (primary) hypertension Medications: New buspirone 5 mg PO TID 90 tabs 1RF Changed From lisinopril 10 mg PO DAILY 30 tabs 1RF To lisinopril 20 mg PO DAILY 30 tabs 1RF Coding Level of Care Code New Pt Level 4 (61911) Diagnoses Essential hypertension I10 Hyperlipidemia, unspecified hyperlipidemia type E78.5 Hyperlipidemia type: unspecified Hx of gout Z87.39 Anxiety and depression F41.9; F32.A Family history of coronary artery disease Z82.49 Additional Codes ROSALINE-7 Assessment Billing - ROSALINE-7 Assessment Tool: ROSALINE-7 Assessment [id number] ([id number])
== END 2023-04-10 12:37 | disposition home or self-care (01) ==
PROVIDERS: PCP Internal Medicine; Visit Provider Internal Medicine
DX: Z23 Encounter for immunization (principal)
CPT/HCPCS: 90471; 90686; 96127; 99204

== ENCOUNTER 2023-04-13 09:45 | Outpatient (REF) | payer OTHER, SELFPAY ==
[2023-04-13 11:21] LABS: Cholesterol 273 mg/dL (<200); HDL Cholesterol 31 mg/dL (>40); LDL Cholesterol Calculated 205 mg/dL (<100); Triglycerides 189 mg/dL (<150); Uric Acid 8.4 mg/dL (3.4-7.0)
== END 2023-04-13 09:46 | disposition home or self-care (01) ==
LOC: HO.HMGCLDS 09:45
PROVIDERS: PCP Internal Medicine; Visit Provider Internal Medicine
DX: I10 Essential (primary) hypertension (principal); E78.5 Hyperlipidemia, unspecified; Z87.39 Personal history of other diseases of the musculoskeletal system and connective tissue; Z82.49 Family history of ischemic heart disease and other diseases of the circulatory system
CPT/HCPCS: 36415; 80061; 84550

== ENCOUNTER 2023-04-28 15:42 | Emergency (ER) | payer OTHER, SELFPAY | END 2023-04-28 17:14 | disposition left against medical advice (07) | PROVIDERS: Emergency Provider Emergency Medicine; PCP Internal Medicine | DX: Z53.21 Procedure and treatment not carried out due to patient leaving prior to being seen by health care provider (principal); I10 Essential (primary) hypertension ==

== ENCOUNTER 2023-05-06 15:12 | Emergency (ER) | payer OTHER, SELFPAY ==
[2023-05-06 16:11] VITALS: BP 161/103; PULSE 86; RESP 18; TEMP 36; O2SAT 97; BMI 25.2
--- NOTE | 2023-05-06 16:11 | ED.GENADULT ---
HPI - General Adult General Chief complaint: Dizziness Stated complaint: gout med made him dizzy nausea Source: patient Mode of arrival: ambulatory Limitations: no limitations History of Present Illness HPI narrative: Patient is a 48 year old assigned male at with a history of gout presenting to the emergency department today with dizziness and feeling unwell after taking indomethacin. Patient states that every time he takes his medication, indomethacin, for gout, he has these episodes. Patient denies any lightheadedness, abdominal pain, nausea, vomiting, fever, chills, blurry vision, double vision, loss of vision, chest pain, difficulty breathing, shortness of breath, back pain, night sweats, pain with urination, increased urinary frequency, increased urinary urgency, blood in his urine or stool, syncope or a near syncopal episode, recent trauma or falls, bowel incontinence, bladder incontinence, bowel retention, bladder retention, or any other complaints at this time. Onset (ago): hour(s) Relieving factors: none Exacerbating factors: none Associated symptoms: denies other symptoms Treatments prior to arrival: none Related Data Previous Rx's Medication Instructions Recorded buspirone 5 mg tablet 5 mg PO TID #90 tabs 04/10/23 lisinopril 20 mg tablet 20 mg PO DAILY #30 tabs 04/10/23 indomethacin 50 mg capsule 50 mg PO TID PRN Gout attack #30 04/14/23 caps rosuvastatin 10 mg tablet 10 mg PO DAILY #30 tabs 04/14/23 Allergies Allergy/AdvReac Type Severity Reaction Status Date / Time No Known Allergies Allergy Verified 05/06/23 16:11 Review of Systems Constitutional: Constitutional: Reports no additional constitutional complaints, Denies chills, Denies fever(s) and Denies night sweats Eyes: Eyes: Reports no additional eye complaints, Denies blurry vision, Denies change in vision, Denies diplopia, Denies eye discharge, Denies loss of vision and Denies eye pain ENT: Reports dizziness Cardiovascular: Cardiovascular: Reports no additional cardiovascular complaints, Denies chest pain, Denies lightheadedness, Denies Loss of Consciousness and Denies dyspnea Respiratory: Respiratory: Reports no additional respiratory complaints and Denies dyspnea Gastrointestinal: Gastrointestinal: Reports no additional gastrointestinal complaints, Denies abdominal pain, Denies melena, Denies hematochezia, Denies change in bowel habits and Denies change in stool character Genitourinary: Genitourinary: Reports no additional male genitourinary complaints, Denies hematuria, Denies oliguria, Denies difficulty urinating, Denies dysuria, Denies urinary frequency, Denies urinary hesitancy, Denies urinary incontinence and Denies urinary urgency Musculoskeletal: Musculoskeletal: Reports no additional musculoskeletal complaints, Denies numbness and Denies tingling Neurologic: Reports dizziness, Denies loss of vision, Denies numbness and Denies tingling Psychiatric: Psychiatric: Reports no additional psychiatric complaints Endocrine: Endocrine: Reports no additional endocrine complaints Hematologic/Lymphatic: Hematologic/Lymphatic: Reports no additional hematologic/lymphatic complaints Allergic/Immunologic: Allergic/Immunologic: Reports no additional allergic/immunologic complaints PMFSH Past Medical History Attestation statement: The following information was validated with the patient. Source: old records reviewed and nursing notes reviewed Medical History Anxiety and depression Hx of gout Family history of coronary artery disease Hyperlipidemia Essential hypertension No pertinent past medical history Family History Family History Paternal Uncle Substance use disorder Hx of myocardial infarction, Onset Age: 70 Maternal Uncle Substance use disorder History of CVA (cerebrovascular accident) Brother Mental health disorder Brother Leukemia Father Hx of myocardial infarction Diabetes mellitus Paternal Uncle Hx of myocardial infarction, Onset Age: 60 Paternal Uncle Hx of myocardial infarction, Onset Age: 60 Paternal Aunt Hx of myocardial infarction, Onset Age: 80 Sister Thyroid disorder Maternal Grandfather Colon cancer Social History Social History Housing: Apartment Alcohol intake: current Alcohol intake frequency: holidays/special occasions only Alcohol type: beer and hard liquor Patient Tobacco Use Status: Never used Tobacco e-Cigarette/Vaping Use: Never Used Advance Directives: No Advance Directives Information Provided: No service: No Cognitive needs: No Hearing needs: No Vision needs: No Physical Exam ED Vital Signs: BMI result Body Mass Index 25.2 Const General: cooperative, no acute distress, alert and awake Nutritional Appearance: well nourished Orientation/consciousness: patient oriented x3 Limitations: no limitations HENMT Head: Yes normal to inspection and Yes atraumatic Ears: hearing grossly normal bilaterally and external ears normal General nose exam: Normal external nose present, no nasal discharge noted and no epistaxis Face and sinus: Yes normal facial exam, No abrasion and No laceration Mouth: Normal oral and palatal mucosa present, no drooling and no muffled voice Eyes General: appearance normal, both eyes and all related structures Periorbital: periorbital findings normal Eyelids: Yes eyelids normal Conjunctivae: conjunctivae normal Pupils: Equal, round and reactive pupils present EOM: EOMs intact bilaterally Neck Neck: Yes normal visual inspection, Yes full ROM and Yes no lymphadenopathy Chest Chest palpation & inspection: normal inspection of the chest Resp Effort & Inspection: normal respiratory effort and able to speak in complete sentences GI Inspection: Yes normal to inspection Neuro General: patient oriented x3 and moves all extremities Cranial nerves: Yes Equal, round and reactive pupils present Cognition (Neuro): normal cognition Motor exam (neuro): 5/5 motor strength present throughout Sensory Exam: Normal double simultaneous stimulation for sensation Coordination: [id number] test normal Extrem General: Yes normal to inspection, Yes full ROM and Yes capillary refill normal Psych Appearance: grossly normal Mental Status: mental status grossly normal Affect: normal affect Attitude: cooperative Thought process: Normal thought process present Thought content: Normal thought content present Insight: Good insight present (Psych) Course Course Course Narrative: RME performed by Beatrice Antoine PA-C. Patient is a 48 year old assigned male at presenting to the emergency department with nausea and dizziness after taking indomethicin for gout. Detailed physical exam and review of systems are deferred to the manager maintenance. Labs ordered. Patient placed back in the waiting room pending room availability and results. Medical Decision Making Medical Decision Making MDM Narrative: Patient is a 48 year old assigned male at with a history of gout presenting to the emergency department today after an adverse reaction to his gout medication. Patient's limited physical exam performed in triage was unremarkable. Patient's blood work was unremarkable. Patient's EKG was unremarkable. Patient left the department without completing treatment. Patient left the department before myself or any of the other emergency department clinicians could explain to or review with the patient; physical exam findings, test results, need or lack there of for additional testing, need or lack there of to perform a procedure, need or lack there of for hospital admission / transfer, need or lack there of for prescription medication, treatment options, or a treatment plan. Differential Diagnosis Differential Diagnoses: The differential diagnosis associated with the presentation includes Dizziness Adverse medication reaction Admission/Observation Consideration of admission/observation: Escalation of care including admission/observation considered Patient would have been admitted to the hospital had his work up had any findings where hospital admission was appropriate, his clinical presentation warranted hospital admission, had myself or any other emergency anthropology department chair had the ability to discuss need or lack there of for hospital admission, and the patient hadn't left the department without completing treatment. Lab Data [facility] Lab Attestation statement: I reviewed the patient's lab results. My interpretation of these results are in the MDM Rationale portion of this note. 05/06/23 16:36 05/06/23 16:36 Labs: Lab Results 05/06/23 Range/Units 16:36 WBC 9.7 (4.8-10.8) X10*3/uL RBC 4.75 (4.60-5.80) X10*6/uL Hgb 14.0 (14.0-18.0) g/dl Hct 40.7 L (42.0-52.0) % MCV 85.7 (80.0-98.0) fL MCH 29.5 (27.0-33.0) pg MCHC 34.4 (31.0-36.0) g/dl RDW 12.0 (11.0-16.0) % Plt Count 345 (160-400) X10*3/uL MPV 10.0 (9.4-12.4) fL Immature Gran % (Auto) 0.3 (0.0-0.4) % Neut % (Auto) 71.3 (45-73) % Lymph % (Auto) 18.6 L (20-40) % [place] % (Auto) 8.6 (2-11) % Eos % (Auto) 1.0 (0-4) % Baso % (Auto) 0.2 (0-2) % Lymph # (Auto) 1.8 (1.2-4.9) X10*3/uL [place] # (Auto) 0.8 (0.1-1.2) X10*3/uL Eos # (Auto) 0.1 (0.0-0.4) X10*3/uL Baso # (Auto) 0.0 (0.0-0.2) X10*3/uL Abs Immat Gran (auto) 0.03 (0.00-0.03) X10*3/uL Absolute Neuts (auto) 6.9 (2.0-8.3) x10*3/uL Absolute Nucleated RBC 0.000 (0.0-0.012) X10*3/uL Nucleated RBC % (auto) 0.0 (0.0-0.2) /100WBC Sodium 141 (135-145) mmol/L Potassium 3.7 (3.3-5.1) mmol/L Chloride 108 (96-108) mmol/L Carbon Dioxide 23 (22-29) mmol/L Anion Gap 14 (12-20) BUN 15 (9-16) mg/dL Creatinine 0.95 (0.5-1.4) mg/dL Estim Creat Clear Calc 114.2 Estimated GFR > 60 Random Glucose 128 H (60-115) mg/dL Calcium 9.6 (8.4-10.2) mg/dL Magnesium 1.9 (1.6-2.6) mg/dL Total Bilirubin 0.4 (0.0-1.0) mg/dL AST 12 (5-37) U/L ALT 15 (0-40) U/L Alkaline Phosphatase 93 (39-117) U/L Troponin I High Sens < 2.7 (<3.5-35.0) ng/L Total Protein 8.0 (6.5-8.0) g/dL Albumin 4.4 (3.5-5.0) g/dL Influenza Type A (PCR) NEGATIVE (Negative) Influenza Type B (PCR) NEGATIVE (Negative) RSV RNA Qual (PCR) NEGATIVE (Negative) SARS-CoV-2 RNA (RT-PCR) NEGATIVE (Negative) Independent Interpretation I performed an independent interpretation of an: EKG Interpretation: Vent. Rate: 082 BPM Atrial Rate: 082 BPM P-R Int: 194 ms QRS Dur: 098 ms QT Int: 390 ms P-R-T Axes: 036 -04 -17 degrees QTc Int: 455 ms Sinus rhythm with occasional Premature ventricular complexes Minimal voltage criteria for LVH, may be normal variant (R in aVL) Abnormal ECG When compared with ECG of 25-MAR-2023 14:54, Premature ventricular complexes are now Present Electronically Signed By:SHAW YUSUF Dictated By: Shaw Yusuf MD Signed By: Electronically signed by Shaw Yusuf MD 05/07/23 0353 Radiology Impression Discussion of test interpretation with radiology: I have reviewed the radiologist's reading. Discharge Plan Discharge Clinical Impression: Dizziness Patient Disposition: Left W/O Completing Treatment Prescriptions: No Action indomethacin 50 mg capsule 50 mg PO TID PRN (Reason: Gout attack) Qty: 30 0RF Rx Instructions: administer with food or milk rosuvastatin 10 mg tablet 10 mg PO DAILY Qty: 30 5RF lisinopril 20 mg tablet 20 mg PO DAILY Qty: 30 1RF buspirone 5 mg tablet 5 mg PO TID Qty: 90 1RF Discharge Date/Time: 05/06/23 19:56
--- NOTE | 2023-05-06 16:12 | ECG_ITS ---
Test Reason : DIZZINESS Blood Pressure : / mmHG Vent. Rate : 082 BPM Atrial Rate : 082 BPM P-R Int : 194 ms QRS Dur : 098 ms QT Int : 390 ms P-R-T Axes : 036 -04 -17 degrees QTc Int : 455 ms Sinus rhythm with occasional Premature ventricular complexes Minimal voltage criteria for LVH, may be normal variant ( R in aVL ) Abnormal ECG When compared with ECG of 25-MAR-2023 14:54, Premature ventricular complexes are now Present Referred By: Beatrice Antoine Electronically Signed By:SHAW CORTEZ
[2023-05-06 16:41] LABS: MANUAL DIFF FLAG NO
[2023-05-06 16:42] LABS: Basophils Percent Auto 0.2 % (0-2); Eosinophils Absolute Auto 0.1 X10*3/uL (0.0-0.4); Hematocrit 40.7 % (42.0-52.0); Imm Gran Abs Auto 0.03 X10*3/uL (0.00-0.03); Imm Gran Pct Auto 0.3 % (0.0-0.4); Lymphocytes Absolute Auto 1.8 X10*3/uL (1.2-4.9); Lymphocytes Percent Auto 18.6 % (20-40); Mean Corpuscular HGB Conc 34.4 g/dl (31.0-36.0); Mean Corpuscular Hemoglobin 29.5 pg (27.0-33.0); Mean Corpuscular Volume 85.7 fL (80.0-98.0); Monocytes Absolute Auto 0.8 X10*3/uL (0.1-1.2); Monocytes Percent Auto 8.6 % (2-11); Neutrophils Absolute Auto 6.9 x10*3/uL (2.0-8.3); Neutrophils Percent Auto 71.3 % (45-73); Platelet Count 345 X10*3/uL (160-400); Red Blood Count 4.75 X10*6/uL (4.60-5.80); White Blood Count 9.7 X10*3/uL (4.8-10.8)
[2023-05-06 16:57] LABS: Alanine Aminotransferase 15 U/L (0-40); Albumin Level 4.4 g/dL (3.5-5.0); Alkaline Phosphatase 93 U/L (39-117); Anion Gap 14 (12-20); Aspartate Amino Transferase 12 U/L (5-37); Bilirubin Total 0.4 mg/dL (0.0-1.0); Blood Urea Nitrogen 15 mg/dL (9-16); Calcium 9.6 mg/dL (8.4-10.2); Carbon Dioxide 23 mmol/L (22-29); Chloride 108 mmol/L (96-108); Creatinine Clr Calc Pharmacy 114.2; Estimated Glomerular Filt Rate > 60; Glucose Random 128 mg/dL (60-115); Magnesium 1.9 mg/dL (1.6-2.6); Potassium 3.7 mmol/L (3.3-5.1); Sodium 141 mmol/L (135-145)
[2023-05-06 17:07] LABS: Troponin-I High Sensitivity < 2.7 ng/L (<3.5-35.0)
[2023-05-06 17:20] LABS: Influenza A PCR NEGATIVE (Negative); Influenza B PCR NEGATIVE (Negative); Resp Syncy Virus RNA Qual PCR NEGATIVE (Negative); SARS COV2 PCR INHOUSE NEGATIVE (Negative)
== END 2023-05-06 19:56 | disposition left against medical advice (07) ==
PROVIDERS: Physician Assistant Medical; Emergency Provider Emergency Medicine; PCP Internal Medicine
DX: R42 Dizziness and giddiness (principal); I10 Essential (primary) hypertension; M10.9 Gout, unspecified; Z79.899 Other long term (current) drug therapy; Z11.52 Encounter for screening for COVID-19; Z20.828 Contact with and (suspected) exposure to other viral communicable diseases
CPT/HCPCS: 0241U; 80053; 83735; 84484; 85025; 93005; 99283

== ENCOUNTER → 2023-05-06 16:12 | Outpatient (BNV) | payer OTHER, SELFPAY | PROVIDERS: Emergency Provider Emergency Medicine; PCP Internal Medicine; Visit Provider Internal Medicine | DX: R42 Dizziness and giddiness (principal) | CPT/HCPCS: 93010 ==

== ENCOUNTER 2024-01-27 10:12 | Emergency (ER) | payer MEDICAID, SELFPAY ==
[2024-01-27 10:14] VITALS: BP 178/94; PULSE 72; RESP 18; TEMP 36.7; O2SAT 98; BMI 23.9
[2024-01-27 10:25] LABS: MANUAL DIFF FLAG NO
[2024-01-27 10:26] LABS: Basophils Percent Auto 0.3 % (0-2); Eosinophils Absolute Auto 0.2 X10*3/uL (0.0-0.4); Hematocrit 45.2 % (42.0-52.0); Hemoglobin 15.7 g/dl (14.0-18.0); Imm Gran Abs Auto 0.02 X10*3/uL (0.00-0.03); Imm Gran Pct Auto 0.3 % (0.0-0.4); Lymphocytes Absolute Auto 2.7 X10*3/uL (1.2-4.9); Mean Corpuscular HGB Conc 34.7 g/dl (31.0-36.0); Mean Corpuscular Hemoglobin 30.5 pg (27.0-33.0); Mean Corpuscular Volume 87.8 fL (80.0-98.0); Mean Platelet Volume 10.1 fL (9.4-12.4); Monocytes Absolute Auto 0.7 X10*3/uL (0.1-1.2); Monocytes Percent Auto 8.7 % (2-11); Neutrophils Percent Auto 52.7 % (45-73); Platelet Count 295 X10*3/uL (160-400); Red Blood Count 5.15 X10*6/uL (4.60-5.80); Red Cell Distribution Width 12.2 % (11.0-16.0); White Blood Count 7.6 X10*3/uL (4.8-10.8)
[2024-01-27 10:53] LABS: Alanine Aminotransferase 27 U/L (0-40); Albumin Level 4.6 g/dL (3.5-5.0); Alkaline Phosphatase 89 U/L (39-117); Anion Gap 13 (12-20); Aspartate Amino Transferase 23 U/L (5-37); Bilirubin Direct 0.2 mg/dL (0.0-0.5); Bilirubin Total 0.9 mg/dL (0.0-1.0); Blood Urea Nitrogen 12 mg/dL (9-16); Calcium 9.7 mg/dL (8.4-10.2); Carbon Dioxide 24 mmol/L (22-29); Chloride 105 mmol/L (96-108); Creatinine Clr Calc Pharmacy 133.9; Estimated Glomerular Filt Rate > 60; Glucose Random 106 mg/dL (60-115); Lipase 27 U/L (8-78); Potassium 3.8 mmol/L (3.3-5.1); Sodium 138 mmol/L (135-145); Total Protein 8.2 g/dL (6.5-8.0)
== END 2024-01-27 17:50 | disposition left against medical advice (07) ==
PROVIDERS: Emergency Provider Emergency Medicine; PCP Internal Medicine
DX: R06.02 Shortness of breath (principal)
CPT/HCPCS: 36415; 80048; 80076; 83690; 85025; 99281

== ENCOUNTER 2024-02-24 09:34 | Outpatient (AMB) | payer OTHER, SELFPAY ==
[2024-02-24 10:32] VITALS: BP 166/100; PULSE 74; O2SAT 97; BMI 25.3
--- NOTE | 2024-02-24 10:32 | MHC.PC.OV ---
Vital Signs 02/24/24 10:32 Height 6 ft 4 in Weight 208 lb BMI 25.3 BP 166/100 H Blood Pressure Location Lt brachial Position Sitting Pulse 74 Pulse Source Pulse Oximeter Pulse Oximetry (%) 97 Oxygen Delivery Method Room Air Intake Visit Reasons: HTN Intake Note: Pt is here today to f/u HTN Allergies No Known Allergies Allergy (Verified 02/24/24 10:56) Medication List - Last Reconciled 02/24/24 by Monisha Diggs MD buspirone 5 mg PO TID lisinopril 20 mg PO DAILY rosuvastatin 10 mg PO DAILY Tobacco use date assessed: 02/24/24 Dental Screening Dental Screen Date: 02/24/24 Did you have a dental visit in the last 12 months?: No Did you have a dental problem in the last 6 months where you did not have access to dental care?: No Was dental information given to patient?: Patient has dentist HPI HTN HPI Details 48 years old male with past medical history significant for hypertension, hyperlipidemia, anxiety depression with history of gout, here today for follow-up. Patient states that he has been taking his medicines irregularly, once he starts feeling better, he stops taking the medication . He also takes buspirone only as needed for anxiety attacks. Has cut back on his alcohol intake, drinks at least 2-3 beers 2 times a week instead of daily, does not smoke. Gets occasional headaches, but denies any chest pain, no shortness of breath, no palpitations or lightheadedness. He also states that he has not had any gout attack ever since he started taking rosuvastatin.. Has not yet had his fasting labs done. [facility] Medical History (Updated 02/24/24 @ 11:18 by Monisha Diggs MD) Vaccine refused by patient Anxiety and depression Hx of gout Family history of coronary artery disease Hyperlipidemia Essential hypertension Surgical History No pertinent past surgical history Family History Paternal Uncle Substance use disorder Hx of myocardial infarction, Onset Age: 70 Maternal Uncle Substance use disorder History of CVA (cerebrovascular accident) Brother Mental health disorder Brother Leukemia Father Hx of myocardial infarction Diabetes mellitus Paternal Uncle Hx of myocardial infarction, Onset Age: 60 Paternal Uncle Hx of myocardial infarction, Onset Age: 60 Paternal Aunt Hx of myocardial infarction, Onset Age: 80 Sister Thyroid disorder Maternal Grandfather Colon cancer Social History Housing: Apartment Alcohol intake: current Alcohol intake frequency: holidays/special occasions only Alcohol type: beer and hard liquor Comment: History of heavy drinking in the past , at least 2 drinks daily Patient Tobacco Use Status: Never used Tobacco e-Cigarette/Vaping Use: Never Used service: No Current occupational status: unemployed Cognitive needs: No Hearing needs: No Vision needs: No Questionnaire PHQ-9 Over the last 2 weeks, how often have you been bothered by any of the following problems? 1. Little interest or pleasure in doing things: not at all 2. Feeling down, depressed, or hopeless: not at all 3. Trouble falling or staying asleep, or sleeping too much: not at all 4. Feeling tired or having little energy: not at all 5. Poor appetite or overeating: not at all 6. Feeling bad about yourself - or that you are a failure or have let yourself or your family down: not at all 7. Trouble concentrating on things, such as reading the newspaper or watching television: not at all 8. Moving or speaking so slowly that other people could have noticed. Or the opposite - being so fidgety or restless that you have been moving around a lot more than usual: not at all 9. Thoughts that you would be better off or of hurting yourself in some way: not at all Total score: 0 Depression Screening Interpretation: Negative Depression Screening Done: Yes 44112 - PHQ-9 Billing: Yes Source: Developed by Drs. Uzair Forbes, Vianney Dougherty, Rogers Jose and colleagues, with an educational papo from [employer]. Thrive Questionnaire Date Thrive assessed: 02/24/24 I am a: Patient What is your living situation today?: I have a steady place to live Within the past 12 months, did the food you bought not last and you didn't have the money to get more?: I choose not to answer this question Within the past 12 months, did you worry whether your food would run out before you got money to buy more?: Never true Do you have trouble paying for medicines?: No Do you have trouble getting transportation to medical appointments?: No Do you have trouble paying your heating and electricity bill?: No Do you have trouble taking care of your child, family member or friend?: No Do you have trouble with day-to-day activities such as bathing, preparing meals, shopping, managing finances, etc.?: No Are you currently unemployed and looking for a job?: Yes Are you interested in more education?: No Please select the resources that you would like help with: None Currently or been in a relationship where the following occur: I choose not to answer THRIVE Score: 0 AUDIT C Alcohol Use Questionnaire (AUDIT-C) 1. How often do you have a drink containing alcohol?: 2-3 times a week 2. How many drinks containing alcohol do you have on a typical day when you are drinking?: 1 or 2 3. How often do you have six or more drinks on one occasion?: Weekly Total Score: 6 ROSALINE-7 AMB Questionnaire ROSALINE-7 Date ROSALINE - 7 assessed: 02/24/24 Feeling nervous, anxious, or on edge: 1 = Several days Not being able to stop or control worryin = Several days Worrying too much about different things: 1 = Several days Trouble relaxin = Several days Being so restless that it is hard to sit still: 0 = Not at all Becoming easily annoyed or irritable: 0 = Not at all Feeling afraid as if something awful might happen: 0 = Not at all Total ROSALINE-7 score (0-4 normal; 5-9 mild; 10-14 moderate; 15-21 severe): 4 Source: Developed by Drs. Uzair Forbes, Vianney Dougherty, Rogers Jose and colleagues, with an educational papo from [employer]. ROSALINE-7 Assessment Billing ROSALINE-7 Assessment Tool: ROSALINE-7 Assessment 94860 Review of Systems Const Denies body aches, Denies fatigue, Denies fever(s) and Denies weakness Eyes Denies change in vision ENT Denies dizziness, Denies nasal congestion and Denies nasal discharge Card Denies chest pain, Denies lightheadedness, Denies palpitations and Denies dyspnea Resp Denies chest congestion, Denies cough, Denies dyspnea and Denies wheezing GI Denies abdominal pain, Denies change in bowel habits and Denies heartburn Denies hematuria, Denies difficulty urinating, Denies dysuria, Denies urinary frequency and Denies urinary urgency Musc Reports no additional complaints Skin/Breast Denies rash Neuro Denies dizziness and Denies weakness Psych Reports no additional complaints Endo Denies fatigue, Denies polydipsia, Denies polyuria and Denies palpitations Arian/Lymph Denies easy bruising Aller/Immun Denies seasonal rhinorrhea and Denies wheezing Physical exam (Primary Care) Vital Signs: Last Vital Signs Pulse 74 02/24/24 10:32 BP 166/100 H 02/24/24 10:32 Pulse Ox 97 02/24/24 10:32 Oxygen Delivery Method Room Air 02/24/24 10:32 BMI result Body Mass Index 25.3 Tobacco/Smoking Status: Tobacco use Status Tobacco use date assessed 02/24/24 02/24/24 10:33 Patient Tobacco Use Status Never used Tobacco 02/24/24 10:33 e-Cigarette/Vaping Use Never Used 02/24/24 10:33 PHQ-9: PHQ-9 Score PHQ-9: Total score 0 02/24/24 10:33 Depression Screening Interpretation: Negative Thrive Assessment: Date of Thrive Assessment Date Thrive assessed 02/24/24 02/24/24 10:33 Currently or been in a relationship where the following occur: I choose not to answer Const General: comfortable, no acute distress and alert Orientation/consciousness: patient oriented x3 Limitations: no limitations HENMT Ears: external ears normal, TM's normal bilaterally and EAC's normal General nose exam: Normal external nose present and No nasal discharge present Mouth: Normal oral and palatal mucosa present, oropharynx normal and moist mucous membranes Eyes General: appearance normal, both eyes and all related structures Conjunctivae: conjunctivae normal Sclerae: sclerae normal Pupils: Equal, round and reactive pupils present EOM: EOMs intact bilaterally Neck Neck: Yes full ROM, Yes no lymphadenopathy and Yes supple Resp Effort & Inspection: normal respiratory effort and able to speak in complete sentences Auscultation: clear to auscultation bilaterally Cardio Rate: regular rate Rhythm: regular rhythm Heart sounds: S1 normal heart sound present and S2 normal heart sound present GI Palpation (GI): Soft to palpation, nontender and no masses Auscultation: normal bowel sounds Back/Spine/Pelvis Back: No back tenderness Neuro General: patient oriented x3, gait normal, tone normal, moves all extremities, Normal light touch and pain sensation and no focal motor deficits Cranial nerves: Yes CN's II-XII intact bilaterally and Yes Equal, round and reactive pupils present Cognition (Neuro): normal cognition Extrem General: Yes full ROM, Yes no joint enlargement, Yes no clubbing, cyanosis or edema and Yes no calf tenderness Psych Appearance: grossly normal and well kempt Mental Status: mental status grossly normal Speech and movement: Normal speech and movement present Affect: normal affect Attitude: cooperative Thought process: Normal thought process present Thought content: Normal thought content present, suicidality and no homicidality Coding Level of Care Code Est Pt Level 4 (46524) Complex EM visit Add On G2211 Diagnoses Essential hypertension I10 Hyperlipidemia, unspecified hyperlipidemia type E78.5 Hyperlipidemia type: unspecified Family history of coronary artery disease Z82.49 Anxiety and depression F41.9; F32.A Hx of gout Z87.39 Vaccine refused by patient Z28.20 Additional Codes PHQ-9 - 20407 - PHQ-9 Billing: Yes ([id number]) ROSALINE-7 Assessment Billing - ROSALINE-7 Assessment Tool: ROSALINE-7 Assessment 59015 ([id number]) Assessment & Plan Assessment & Plan (1) Essential hypertension: Code(s): I10 - Essential (primary) hypertension Category: Medical Plan: Blood pressure still not at goal of less than 130/80. Reinforced importance of taking meds since regularly. Continue with lisinopril 20 mg once a day in a.m. and added amlodipine 5 mg once a day at night with supper. Continue with low-cholesterol diet, and advised to continue cutting back on his alcohol intake. Schedule an appointment with nurse navigator in 2 weeks to check blood pressure (2) Hyperlipidemia: Code(s): E78.5 - Hyperlipidemia, unspecified Category: Medical Qualifiers: Hyperlipidemia type: unspecified Qualified Code(s): E78.5 - Hyperlipidemia, unspecified Plan: Fasting lipids ordered together with liver enzymes currently on rosuvastatin 10 mg daily (3) Family history of coronary artery disease: Code(s): Z82.49 - Family history of ischemic heart disease and other diseases of the circulatory system Category: Medical Plan: Reinforced importance of getting blood pressure, cholesterol levels well controlled (4) Anxiety and depression: Code(s): F41.9 - Anxiety disorder, unspecified; F32.A - Depression, unspecified Category: Medical Plan: Advised to start taking buspirone 5 mg once a day in a.m. instead of taking it only as needed. Prescription sent for 90 with 1 refill (5) Hx of gout: Code(s): Z87.39 - Personal history of other diseases of the musculoskeletal system and connective tissue Category: Medical Plan: No recent attacks of gout. Will check serum uric acid level (6) Vaccine refused by patient: Code(s): Z28.20 - Immunization not carried out because of patient decision for unspecified reason Category: Medical Plan: Patient declined recommendation to get flu vaccine COVID vaccine Orders: Orders Uric Acid Today Z87.39 - Personal history of other diseases of the musculoskeletal system and connective tissue Comprehensive Drybranch. Panel Fast Today E78.5 - Hyperlipidemia, unspecified, F32.A - Depression, unspecified, F41.9 - Anxiety disorder, unspecified, I10 - Essential (primary) hypertension, Z82.49 - Family history of ischemic heart disease and other diseases of the circulatory system Lipid Panel Today E78.5 - Hyperlipidemia, unspecified, F32.A - Depression, unspecified, F41.9 - Anxiety disorder, unspecified, I10 - Essential (primary) hypertension, Z82.49 - Family history of ischemic heart disease and other diseases of the circulatory system Medications: New amlodipine Take at night with supper 5 mg PO DAILY 90 tabs 0RF Changed From buspirone 5 mg PO TID 90 tabs 1RF To buspirone 5 mg PO DAILY 90 tabs 1RF Refilled lisinopril 20 mg PO DAILY 90 tabs 1RF rosuvastatin 10 mg PO DAILY 90 tabs 1RF
== END 2024-02-24 12:03 | disposition home or self-care (01) ==
PROVIDERS: PCP Internal Medicine; Visit Provider Internal Medicine
DX: I10 Essential (primary) hypertension (principal); E78.5 Hyperlipidemia, unspecified; Z82.49 Family history of ischemic heart disease and other diseases of the circulatory system; F41.9 Anxiety disorder, unspecified; F32.A Depression, unspecified; Z87.39 Personal history of other diseases of the musculoskeletal system and connective tissue; Z28.20 Immunization not carried out because of patient decision for unspecified reason

== ENCOUNTER → 2024-02-24 09:34 | Outpatient (BNVA) | payer MEDICAID, SELFPAY | PROVIDERS: PCP Internal Medicine; Visit Provider Internal Medicine | DX: I10 Essential (primary) hypertension (principal); E78.5 Hyperlipidemia, unspecified; Z82.49 Family history of ischemic heart disease and other diseases of the circulatory system; F41.9 Anxiety disorder, unspecified; F32.A Depression, unspecified; Z28.20 Immunization not carried out because of patient decision for unspecified reason; Z87.39 Personal history of other diseases of the musculoskeletal system and connective tissue | CPT/HCPCS: 96127; 99212 ==

== ENCOUNTER 2024-03-08 06:52 | Emergency (ER) | payer OTHER, SELFPAY ==
--- NOTE | 2024-03-08 06:55 | ECG_ITS ---
Test Reason : CP Blood Pressure : */* mmHG Vent. Rate : 81 BPM Atrial Rate : 81 BPM P-R Int : 224 ms QRS Dur : 94 ms QT Int : 380 ms P-R-T Axes : 43 -8 5 degrees QTcB Int : 441 ms Sinus rhythm with 1st degree A-V block Possible Left atrial enlargement Minimal voltage criteria for LVH, may be normal variant ( R in aVL ) Borderline ECG When compared with ECG of 06-May-2023 16:31, Premature ventricular complexes are no longer Present NE interval has increased Nonspecific T wave abnormality no longer evident in Lateral leads Referred By: Generic ED Physician Electronically Signed By: Favian Leon
[2024-03-08 06:59] VITALS: BP 166/116; PULSE 78; RESP 16; TEMP 36.4; O2SAT 98; BMI 25.2
[2024-03-08 07:22] LABS: MANUAL DIFF FLAG NO
[2024-03-08 07:26] LABS: Basophils Percent Auto 0.5 % (0-2); Eosinophils Absolute Auto 0.3 X10*3/uL (0.0-0.4); Eosinophils Percent Auto 4.8 % (0-4); Hematocrit 41.6 % (42.0-52.0); Hemoglobin 14.5 g/dl (14.0-18.0); Imm Gran Abs Auto 0.02 X10*3/uL (0.00-0.03); Imm Gran Pct Auto 0.3 % (0.0-0.4); Lymphocytes Absolute Auto 2.9 X10*3/uL (1.2-4.9); Lymphocytes Percent Auto 46.7 % (20-40); Mean Corpuscular HGB Conc 34.9 g/dl (31.0-36.0); Mean Corpuscular Hemoglobin 30.6 pg (27.0-33.0); Mean Corpuscular Volume 87.8 fL (80.0-98.0); Mean Platelet Volume 10.1 fL (9.4-12.4); Monocytes Absolute Auto 0.6 X10*3/uL (0.1-1.2); Monocytes Percent Auto 9.1 % (2-11); Neutrophils Absolute Auto 2.4 x10*3/uL (2.0-8.3); Neutrophils Percent Auto 38.6 % (45-73); Platelet Count 286 X10*3/uL (160-400); Red Blood Count 4.74 X10*6/uL (4.60-5.80); Red Cell Distribution Width 12.2 % (11.0-16.0); White Blood Count 6.2 X10*3/uL (4.8-10.8)
--- NOTE | 2024-03-08 07:27 | ED_ITS ---
HPI - Chest Pain General Chief Complaint: Chest Pain Stated Complaint: chest pains Time Seen by Provider: 03/08/24 07:12 Source: patient Mode of arrival: ambulatory Limitations: no limitations History of Present Illness ED Provider: DR. Manning HPI narrative: This is a 48-year-old male with pertinent history of hypertension, high cholesterol, and medically managed anxiety patient is feeling anxious since last night, patient could not sleep last night because of nasal congestion and difficulty breathing from his nose, no sick contacts, patient started to have mid chest pain while he was in bed started about 1 hour before coming to the ED pain was localized to the chest with no radiation, associated with difficulty breathing, no fever, no chills, no recent travel, no lower extremity swelling or tenderness, no history drug abuse particular cocaine, patient checked his blood pressure when he had a chest pain and blood pressure was 170/115, no headache, no blurry vision, no weakness, no numbness. patient now feels relaxed with no chest pain, no difficulty breathing. Related Data Previous Rx's ?Medication ?Instructions ?Recorded amlodipine 5 mg tablet 5 mg PO DAILY #90 tabs 02/24/24 buspirone 5 mg tablet 5 mg PO DAILY #90 tabs 02/24/24 lisinopril 20 mg tablet 20 mg PO DAILY #90 tabs 02/24/24 rosuvastatin 10 mg tablet 10 mg PO DAILY #90 tabs 02/24/24 Allergies Allergy/AdvReac Type Severity Reaction Status Date / Time No Known Allergies Allergy Verified 03/08/24 07:00 Review of Systems 2 Review of Systems: All other systems are reviewed and are negative Constitutional: Reports as per HPI and Reports no additional constitutional complaints Eyes: Reports as per HPI and Reports no additional eye complaints Reports system reviewed and no additional complaints, except as documented Cardiovascular: Reports as per HPI and Reports no additional cardiovascular complaints Respiratory: Reports as per HPI and Reports no additional respiratory complaints Gastrointestinal: Reports as per HPI and Reports no additional gastrointestinal complaints Genitourinary: Reports no additional female genitourinary complaints Musculoskeletal: Reports no additional musculoskeletal complaints Skin/Breast: Reports system reviewed and no additional complaints, except as docu Psychiatric: Reports no additional psychiatric complaints Endocrine: Reports no additional endocrine complaints Hematologic/Lymphatic: Reports no additional hematologic/lymphatic complaints Allergic/Immunologic: Reports no additional allergic/immunologic complaints Reports system reviewed and no additional complaints, except as documented and Reports Abnormal speech present [facility] Past Medical History Medical History Vaccine refused by patient Anxiety and depression Hx of gout Family history of coronary artery disease Hyperlipidemia Essential hypertension Surgical History No pertinent past surgical history Family History Family History Paternal Uncle Substance use disorder Hx of myocardial infarction, Onset Age: 70 Maternal Uncle Substance use disorder History of CVA (cerebrovascular accident) Brother Mental health disorder Brother Leukemia Father Hx of myocardial infarction Diabetes mellitus Paternal Uncle Hx of myocardial infarction, Onset Age: 60 Paternal Uncle Hx of myocardial infarction, Onset Age: 60 Paternal Aunt Hx of myocardial infarction, Onset Age: 80 Sister Thyroid disorder Maternal Grandfather Colon cancer Social History Social History Housing: Apartment Alcohol intake: current Alcohol intake frequency: holidays/special occasions only Alcohol type: beer and hard liquor Comment: History of heavy drinking in the past , at least 2 drinks daily Patient Tobacco Use Status: Never used Tobacco Smoked in Last 30 Days: No e-Cigarette/Vaping Use: Never Used Use of substances other than those prescribed or required for medical reasons: No Advance Directives: No Advance Directives Information Provided: Yes Do you have a plan to hurt others: No Plan service: No Current occupational status: unemployed Cognitive needs: No Hearing needs: No Vision needs: No Physical Exam 2 Vital Signs: Vital Signs: Last Vital Signs Temp 98.3 F 03/08/24 08:02 Pulse 80 03/08/24 10:25 Resp 16 03/08/24 10:25 BP 168/116 H 03/08/24 10:25 Pulse Ox 98 03/08/24 10:25 O2 Del Method Room Air 03/08/24 10:25 BMI result Body Mass Index 25.2 Vital signs have been reviewed and appear to be correct. Blood pressure elevated. Heart rate normal. Respiratory rate normal. Temperature normal. Oxygen saturation normal. Appearance: Alert. Oriented X3. No acute distress. Head: Normal external exam. Normocephalic. Atraumatic. No Paz signs noted. No raccoon eyes noted Eyes: PERRLA. EOMI. Conjunctiva and sclera normal. Eyelids normal. ENT: TM's Normal. Pharynx normal. Uvula midline. Moist mucous membranes. No trismus noted. No drooling noted. No muffled voice noted. Neck: Normal inspection. Neck supple. FROM. No adenopathy. Thyroid Normal. No meningeal signs. No neck mass noted. CVS: Normal heart rate and rhythm. Heart sound normal. No murmurs noted. Pulses normal throughout. Respiratory: No respiratory distress. Painless inspiration. Breath sounds normal. No wheezes/rales/rhonchi noted. Chest nontender. No accessory muscle usage noted or decreased air movement noted. Abdomen: Soft and nontender. Bowel sounds normal in all 4 quadrants. No distention noted. No organomegaly noted. No visible injury noted. Back: No CVA tenderness. Full range of motion noted. Skin: Skin warm and dry. Normal skin color. Normal skin turgor. No rashes/lesions/lacerations noted. Extremities: No lower extremity edema. Extremities exhibit normal range of motion. Extremities nontender. Neuro: Oriented X 3. Cranial nerve exam: II-XII are grossly intact No motor deficit. No sensory deficit. Reflexes normal. Course Reevaluation(s) Reevaluation #1: Chest Pain, ACS is not likely with negative troponin x2 and normal EKG, pulmonary embolism is also unlikely with a negative D-dimer and absence of risk factor. Time: 11:25 Medical Decision Making Differential Diagnosis Differential Diagnoses: The differential diagnosis associated with the presentation includes (ACS, pneumonia, pneumothorax, pleural effusion, costochondritis, chest wall pain, pulmonary embolism, electrolyte derangement, severe anemia.) Admission/Observation Consideration of admission/observation: Escalation of care including admission/observation considered Lab Data MDM Lab Attestation statement: I reviewed the patient's lab results. 03/08/24 07:16 03/08/24 07:19 Labs: Lab Results 03/08/24 03/08/24 03/08/24 Range/Units 07:16 07:19 10:29 WBC 6.2 (4.8-10.8) X10*3/uL RBC 4.74 (4.60-5.80) X10*6/uL Hgb 14.5 (14.0-18.0) g/dl Hct 41.6 L (42.0-52.0) % MCV 87.8 (80.0-98.0) fL MCH 30.6 (27.0-33.0) pg MCHC 34.9 (31.0-36.0) g/dl RDW 12.2 (11.0-16.0) % Plt Count 286 (160-400) X10*3/uL MPV 10.1 (9.4-12.4) fL Immature Gran % (Auto) 0.3 (0.0-0.4) % Neut % (Auto) 38.6 L (45-73) % Lymph % (Auto) 46.7 H (20-40) % [place] % (Auto) 9.1 (2-11) % Eos % (Auto) 4.8 H (0-4) % Baso % (Auto) 0.5 (0-2) % Lymph # (Auto) 2.9 (1.2-4.9) X10*3/uL [place] # (Auto) 0.6 (0.1-1.2) X10*3/uL Eos # (Auto) 0.3 (0.0-0.4) X10*3/uL Baso # (Auto) 0.0 (0.0-0.2) X10*3/uL Abs Immat Gran (auto) 0.02 (0.00-0.03) X10*3/uL Absolute Neuts (auto) 2.4 (2.0-8.3) x10*3/uL Absolute Nucleated RBC 0.000 (0.0-0.012) X10*3/uL Nucleated RBC % (auto) 0.0 (0.0-0.2) /100WBC D-Dimer High Sensitivty < 150 NG/ML Sodium 141 (135-145) mmol/L Potassium 3.9 (3.3-5.1) mmol/L Chloride 107 (96-108) mmol/L Carbon Dioxide 24 (22-29) mmol/L Anion Gap 14 (12-20) BUN 11 (9-16) mg/dL Creatinine 0.75 (0.5-1.4) mg/dL Estim Creat Clear Calc 144.6 Estimated GFR > 60 Random Glucose 102 (60-115) mg/dL Calcium 9.1 D (8.4-10.2) mg/dL Total Bilirubin 0.4 (0.0-1.0) mg/dL AST 25 (5-37) U/L ALT 29 (0-40) U/L Alkaline Phosphatase 86 (39-117) U/L Troponin I High Sens < 2.7 < 2.7 (<3.5-35.0) ng/L Total Protein 7.8 (6.5-8.0) g/dL Albumin 4.1 (3.5-5.0) g/dL Lipase 32 (8-78) U/L Influenza Type A (PCR) NEGATIVE (Negative) Influenza Type B (PCR) NEGATIVE (Negative) RSV RNA Qual (PCR) NEGATIVE (Negative) SARS-CoV-2 RNA (RT-PCR) NEGATIVE (Negative) Independent Interpretation I performed an independent interpretation of an: EKG and Plain X-Ray Radiology Impression Discussion of test interpretation with radiology: I have reviewed the radiologist's reading. Discharge Plan Discharge Clinical Impression: Anxiety, Chest pain Patient Disposition: Home, Self-Care Instructions: Anxiety (ED) Prescriptions: No Action amlodipine 5 mg tablet 5 mg PO DAILY Qty: 90 0RF Rx Instructions: Take at night with supper lisinopril 20 mg tablet 20 mg PO DAILY Qty: 90 1RF rosuvastatin 10 mg tablet 10 mg PO DAILY Qty: 90 1RF buspirone 5 mg tablet 5 mg PO DAILY Qty: 90 1RF Referrals: Monisha Diggs MD [Primary Care Provider] - Print Language: Uzbek
[2024-03-08 08:02] VITALS: BP 164/93; PULSE 81; RESP 16; TEMP 36.8; O2SAT 98
[2024-03-08 08:07] VITALS: BP 154/93; PULSE 80; RESP 16; O2SAT 95
[2024-03-08 08:07] LABS: D Dimer High Sensitivity < 150 NG/ML
[2024-03-08 08:20] LABS: Alanine Aminotransferase 29 U/L (0-40); Albumin Level 4.1 g/dL (3.5-5.0); Alkaline Phosphatase 86 U/L (39-117); Anion Gap 14 (12-20); Aspartate Amino Transferase 25 U/L (5-37); Bilirubin Total 0.4 mg/dL (0.0-1.0); Blood Urea Nitrogen 11 mg/dL (9-16); Calcium 9.1 mg/dL (8.4-10.2); Carbon Dioxide 24 mmol/L (22-29); Chloride 107 mmol/L (96-108); Creatinine Clr Calc Pharmacy 144.6; Estimated Glomerular Filt Rate > 60; Glucose Random 102 mg/dL (60-115); Lipase 32 U/L (8-78); Potassium 3.9 mmol/L (3.3-5.1); Sodium 141 mmol/L (135-145); Total Protein 7.8 g/dL (6.5-8.0)
[2024-03-08 08:21] LABS: Influenza A PCR NEGATIVE (Negative); Influenza B PCR NEGATIVE (Negative); Resp Syncy Virus RNA Qual PCR NEGATIVE (Negative); SARS COV2 PCR INHOUSE NEGATIVE (Negative)
[2024-03-08 08:30] LABS: Troponin-I High Sensitivity < 2.7 ng/L (<3.5-35.0)
[2024-03-08 10:25] VITALS: BP 168/116; PULSE 80; RESP 16; O2SAT 98
[2024-03-08 11:08] LABS: Troponin-I High Sensitivity < 2.7 ng/L (<3.5-35.0)
[2024-03-08 11:38] VITALS: BP 145/95; PULSE 78; RESP 18; TEMP 36.6; O2SAT 98
== END 2024-03-08 11:38 | disposition home or self-care (01) ==
PROVIDERS: Emergency Provider Emergency Medicine; PCP Internal Medicine
DX: R07.89 Other chest pain (principal); I10 Essential (primary) hypertension; F41.9 Anxiety disorder, unspecified; R06.02 Shortness of breath; Z03.818 Encounter for observation for suspected exposure to other biological agents ruled out; Z79.899 Other long term (current) drug therapy
CPT/HCPCS: 0241U; 36415; 80053; 83690; 84484; 85025; 85379; 93005; 99284; 99285

== ENCOUNTER → 2024-03-08 06:55 | Outpatient (BNV) | payer OTHER, SELFPAY | PROVIDERS: Emergency Provider Emergency Medicine; PCP Internal Medicine; Visit Provider Internal Medicine Cardiovascular Disease | DX: R07.9 Chest pain, unspecified (principal) | CPT/HCPCS: 93010 ==

== ENCOUNTER 2024-06-24 02:29 | Emergency (ER) | payer OTHER, SELFPAY ==
--- NOTE | ~2024-06-24 | XR_ITS ---
CLINICAL HISTORY: cough, left sided pain 2 view chest x-ray Comparison: CR/SR - XR CHEST 2V - 03/25/23 15:03 EST Findings: The lungs are clear. Similar prominent/enlarged cardiac silhouette. No acute fracture. IMPRESSION: 1. No acute findings. This document has been electronically signed by: Edilson Viera MD on 06/24/2024 04:12:09
[2024-06-24 02:37] VITALS: BP 134/98; PULSE 78; RESP 16; TEMP 36.1; O2SAT 100; BMI 24.3
--- NOTE | 2024-06-24 02:46 | ED_ITS ---
HPI - General Adult General Chief complaint: Abdominal Pain Stated complaint: left side abd pain Time Seen by Provider: 06/24/24 02:46 History of Present Illness ED Provider: Chasity GAITAN narrative: The patient is a 49-year-old male with a history of hypertension who says that for the last 2 months he has been having pain in his left upper abdomen after having his morning coffee. He says that he usually has the pain from the time he has a his morning coffee at around 7 in the morning until around 1 in the afternoon. He also says that he has been having a cough and some chest pain intermittently for a few weeks. He says that he went to an urgent care yesterday but could not be seen because they did not take his insurance. He wanted to talk about these symptoms he has been having. He says this morning he woke up at around 01:30 with the same left-sided abdominal pain that he usually only has a after coffee. It was so unusual to have the pain in the middle of the night that he came to the emergency room for evaluation. No definite fevers. He says he has had a mix of constipation and diarrhea. Sometimes he has been concerned he might have blood in his stool. He denies any pain with urination. 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 He lives with his girlfriend. Related Data Previous Rx's ?Medication ?Instructions ?Recorded buspirone 5 mg tablet 5 mg PO DAILY #90 tabs 02/24/24 lisinopril 20 mg tablet 20 mg PO DAILY #90 tabs 02/24/24 rosuvastatin 10 mg tablet 10 mg PO DAILY #90 tabs 02/24/24 amlodipine 5 mg tablet 5 mg PO DAILY #90 tabs 05/21/24 omeprazole 40 mg capsule,delayed 40 mg PO DAILY #30 caps 06/24/24 release sucralfate 1 gram tablet 1 g PO TID PRN Epigastric 06/24/24 discomfort #30 tabs Allergies Allergy/AdvReac Type Severity Reaction Status Date / Time No Known Allergies Allergy Verified 06/24/24 02:40 Review of Systems 2 Review of Systems: Yes all other systems are reviewed and are negative PMFSH Past Medical History Medical History Vaccine refused by patient Anxiety and depression Hx of gout Family history of coronary artery disease Hyperlipidemia Essential hypertension Surgical History No pertinent past surgical history Family History Family History Paternal Uncle Substance use disorder Hx of myocardial infarction, Onset Age: 70 Maternal Uncle Substance use disorder History of CVA (cerebrovascular accident) Brother Mental health disorder Brother Leukemia Father Hx of myocardial infarction Diabetes mellitus Paternal Uncle Hx of myocardial infarction, Onset Age: 60 Paternal Uncle Hx of myocardial infarction, Onset Age: 60 Paternal Aunt Hx of myocardial infarction, Onset Age: 80 Sister Thyroid disorder Maternal Grandfather Colon cancer Social History Social History Housing: Apartment Alcohol intake: current Alcohol intake frequency: holidays/special occasions only Alcohol type: beer and hard liquor Comment: History of heavy drinking in the past , at least 2 drinks daily Patient Tobacco Use Status: Never used Tobacco e-Cigarette/Vaping Use: Never Used Advance Directives: No Advance Directives Information Provided: Yes Do you have a plan to hurt others: No Plan service: No Current occupational status: unemployed Cognitive needs: No Hearing needs: No Vision needs: No Physical Exam ED Vital Signs: Vital Signs - 24 hr 06/24/24 02:37 06/24/24 07:19 Temperature 97.0 F 98.0 F Pulse Rate 78 72 Respiratory Rate 16 16 Blood Pressure 134/98 H 155/93 H Pulse Oximetry 100 100 Oxygen Delivery Method Room Air Room Air BMI result Body Mass Index 24.3 Const Other: The patient is awake and alert. He does not seem in acute distress. Orientation/consciousness: patient oriented x3 HENMT Other: Face is symmetrical, mucous membranes moist Eyes General: appearance normal, both eyes and all related structures Neck Neck: Yes normal visual inspection Resp Effort & Inspection: normal respiratory effort Auscultation: clear to auscultation bilaterally Cardio Rate: regular rate Rhythm: regular rhythm Heart sounds: S1 normal heart sound present and S2 normal heart sound present GI Other: The abdomen is flat and soft. I did not appreciate any focal definite tenderness. Skin General skin exam: no rashes or lesions noted Neuro General: patient oriented x3, gait normal, tone normal, moves all extremities, no focal motor deficits and CN's II-XI intact bilaterally Extrem General: Yes normal to inspection, Yes no pedal edema and Yes no calf tenderness Medications Administered Discontinued Medications Generic Name Dose Route Start Last Admin Trade Name Karlee PRN Reason Stop Dose Admin Sucralfate 1 gm 06/24/24 02:55 06/24/24 03:26 Sucralfate Oral Suspension 1 Gm/10 Ml Oral.Susp PO 06/24/24 02:56 1 gm ONCE ONE Administration Medical Decision Making Medical Decision Making [facility] Narrative: The patient is a 49-year-old male who seems as if he is generally in reasonably good health. He comes for evaluation of left upper abdominal pain. On my exam his abdomen seems entirely nontender. He says he has been having the same pain most mornings when he drinks coffee. Lab testing today is very unremarkable. I think he might have gastritis. He seemed to get some relief with sucralfate and Maalox. The patient also described having some very slight urinary symptoms that he had trouble describing. He is an uncircumcised male. He has slight leukocyte esterase and 6-10 white cells and his urinalysis. He does not really seem to be describing dysuria, frequency and urgency that I think would be typical of a true UTI. Additionally he has no testicular pain and a very nonspecific history of possibly a slight single episode of a penile discharge. My suspicion for a urethritis or other STD in this case would be low. Nevertheless the patient was interested in STD testing and so a urine sample was sent for GC and Chlamydia testing as well. My clinical suspicion for an STI is not sufficiently high to suggest that empiric treatment would be appropriate. He will be discharged with prescriptions for omeprazole and sucralfate for possible gastritis. The urine culture is pending. GC and chlamydia testing are pending as well. He should follow up with his PCP. Lab Data 06/24/24 03:02 06/24/24 03:02 Labs: Lab Results 06/24/24 06/24/24 06/24/24 Range/Units 03:02 05:07 06:40 WBC 7.7 (4.8-10.8) X10*3/uL RBC 4.74 (4.60-5.80) X10*6/uL Hgb 14.6 (14.0-18.0) g/dl Hct 41.3 L (42.0-52.0) % MCV 87.1 (80.0-98.0) fL MCH 30.8 (27.0-33.0) pg MCHC 35.4 (31.0-36.0) g/dl RDW 12.3 (11.0-16.0) % Plt Count 265 (160-400) X10*3/uL MPV 10.1 (9.4-12.4) fL Immature Gran % (Auto) 0.1 (0.0-0.4) % Neut % (Auto) 47.4 (45-73) % Lymph % (Auto) 37.4 (20-40) % [place] % (Auto) 9.1 (2-11) % Eos % (Auto) 5.6 H (0-4) % Baso % (Auto) 0.4 (0-2) % Lymph # (Auto) 2.9 (1.2-4.9) X10*3/uL [place] # (Auto) 0.7 (0.1-1.2) X10*3/uL Eos # (Auto) 0.4 (0.0-0.4) X10*3/uL Baso # (Auto) 0.0 (0.0-0.2) X10*3/uL Abs Immat Gran (auto) 0.01 (0.00-0.03) X10*3/uL Absolute Neuts (auto) 3.7 (2.0-8.3) x10*3/uL Absolute Nucleated RBC 0.000 (0.0-0.012) X10*3/uL Nucleated RBC % (auto) 0.0 (0.0-0.2) /100WBC Sodium 139 (135-145) mmol/L Potassium 4.0 (3.3-5.1) mmol/L Chloride 108 (96-108) mmol/L Carbon Dioxide 23 (22-29) mmol/L Anion Gap 12 (12-20) BUN 17 H (9-16) mg/dL Creatinine 0.90 (0.5-1.4) mg/dL Estim Creat Clear Calc 119.2 Estimated GFR > 60 Random Glucose 128 H (60-115) mg/dL Calcium 9.2 (8.4-10.2) mg/dL Magnesium 2.0 (1.6-2.6) mg/dL Total Bilirubin 0.3 (0.0-1.0) mg/dL Direct Bilirubin 0.1 (0.0-0.5) mg/dL AST 24 (5-37) U/L ALT 28 (0-40) U/L Alkaline Phosphatase 85 (39-117) U/L C-Reactive Protein 0.35 (< or = 0.50) mg/dL Total Protein 7.4 (6.5-8.0) g/dL Albumin 4.1 (3.5-5.0) g/dL Lipase 30 (8-78) U/L Urine Color Yellow Urine Appearance Clear Urine pH 6.0 (5.0-9.0) Ur Specific [place] 1.020 (1.005-1.025) Urine Protein Negative (Neg-Trace) mg/dL Urine Glucose (UA) Negative (Negative) mg/dL Urine Ketones Negative (Negative) mg/dL Urine Blood Negative (Negative) Urine Nitrite Negative (Negative) Ur Leukocyte Esterase Trace H (Negative) Urine RBC 0-2 (0-2) /HPF Urine WBC 6-10 H (0-5) /HPF Ur Squamous Epith Cells 0-2 (0-2) /HPF Urine Bacteria None Seen (None Seen) Hyaline Casts 0-2 (0-2) /LPF Chlam trachomat DNA PCR NOT DETECTED (Not Detect.) N.gonorrhoeae DNA (PCR) NOT DETECTED (Not Detect.) Discharge Plan Discharge Clinical Impression: Abdominal pain Patient Disposition: Home, Self-Care Additional Instructions: I think the abdominal pains you has been experiencing are likely a problem related to stomach acid issues and irritation of the lining of your stomach. Please take omeprazole once a day as prescribed. Start this this morning. In addition I have prescribed another medication called sucralfate which you may use up to 3 times a day on an as-needed basis when you are feeling uncomfortable. Testing has been sent to check your urinary symptoms. Please contact your regular doctor's office today to make a follow up appointment to discuss these symptoms further. Return to the emergency room if significantly worse. Prescriptions: New omeprazole 40 mg capsule,delayed release(DR/EC) 40 mg PO DAILY Qty: 30 0RF sucralfate 1 gram tablet 1 g PO TID PRN (Reason: Epigastric discomfort) Qty: 30 0RF No Action amlodipine 5 mg tablet 5 mg PO DAILY Qty: 90 0RF Rx Instructions: Take at night with supper lisinopril 20 mg tablet 20 mg PO DAILY Qty: 90 1RF rosuvastatin 10 mg tablet 10 mg PO DAILY Qty: 90 1RF buspirone 5 mg tablet 5 mg PO DAILY Qty: 90 1RF Referrals: Monisha Diggs MD [Primary Care Provider] - (Possible gastritis, pending urine culture and GC chlamydia testing) Interventions: ED Discharge Assessment Last Done: 06/24/24 07:19 Discharge Date/Time: 06/24/24 07:20 Print Language: Hebrew
[2024-06-24 03:06] LABS: MANUAL DIFF FLAG NO
[2024-06-24 03:07] LABS: Basophils Percent Auto 0.4 % (0-2); Eosinophils Absolute Auto 0.4 X10*3/uL (0.0-0.4); Eosinophils Percent Auto 5.6 % (0-4); Hematocrit 41.3 % (42.0-52.0); Hemoglobin 14.6 g/dl (14.0-18.0); Imm Gran Abs Auto 0.01 X10*3/uL (0.00-0.03); Imm Gran Pct Auto 0.1 % (0.0-0.4); Lymphocytes Absolute Auto 2.9 X10*3/uL (1.2-4.9); Lymphocytes Percent Auto 37.4 % (20-40); Mean Corpuscular HGB Conc 35.4 g/dl (31.0-36.0); Mean Corpuscular Hemoglobin 30.8 pg (27.0-33.0); Mean Corpuscular Volume 87.1 fL (80.0-98.0); Mean Platelet Volume 10.1 fL (9.4-12.4); Monocytes Absolute Auto 0.7 X10*3/uL (0.1-1.2); Monocytes Percent Auto 9.1 % (2-11); Neutrophils Absolute Auto 3.7 x10*3/uL (2.0-8.3); Neutrophils Percent Auto 47.4 % (45-73); Platelet Count 265 X10*3/uL (160-400); Red Blood Count 4.74 X10*6/uL (4.60-5.80); Red Cell Distribution Width 12.3 % (11.0-16.0); White Blood Count 7.7 X10*3/uL (4.8-10.8)
[2024-06-24] MEDS: Sucralfate Oral Suspension 1 GM/10 ML ORAL.SUSP PO (03:26)
[2024-06-24 03:31] LABS: Alanine Aminotransferase 28 U/L (0-40); Albumin Level 4.1 g/dL (3.5-5.0); Anion Gap 12 (12-20); Aspartate Amino Transferase 24 U/L (5-37); Bilirubin Direct 0.1 mg/dL (0.0-0.5); Bilirubin Total 0.3 mg/dL (0.0-1.0); Blood Urea Nitrogen 17 mg/dL (9-16); C Reactive Protein 0.35 mg/dL (< or = 0.50); Calcium 9.2 mg/dL (8.4-10.2); Carbon Dioxide 23 mmol/L (22-29); Chloride 108 mmol/L (96-108); Creatinine Clr Calc Pharmacy 119.2; Estimated Glomerular Filt Rate > 60; Glucose Random 128 mg/dL (60-115); Lipase 30 U/L (8-78); Sodium 139 mmol/L (135-145); Total Protein 7.4 g/dL (6.5-8.0)
[2024-06-24 04:16] LABS: Alkaline Phosphatase 85 U/L (39-117)
[2024-06-24 05:14] LABS: Appearance Urine Clear; Color Urine Yellow; Glucose Urine UA Negative (Negative); Leukocyte Esterase Urine Trace (Negative); Nitrite Urine Negative (Negative); UMIC TRIGGER UACC YES; Urine Blood Negative (Negative); Urine Ketones Negative (Negative); Urine Protein Negative (Neg-Trace)
[2024-06-24 05:18] LABS: Bacteria Urine None Seen (None Seen); Hyaline Casts Urine 0-2 /LPF (0-2); RBC Urine 0-2 /HPF (0-2); Squamous Epithelial Cell Urine 0-2 /HPF (0-2); UACC Culture Trigger YES
[2024-06-24 07:19] VITALS: BP 155/93; PULSE 72; RESP 16; TEMP 36.7; O2SAT 100
[2024-06-24 08:12] LABS: CT PCR NOT DETECTED (Not Detect.); NG PCR NOT DETECTED (Not Detect.)
== END 2024-06-24 07:20 | disposition home or self-care (01) ==
PROVIDERS: Emergency Provider Emergency Medicine; PCP Internal Medicine
DX: R10.12 Left upper quadrant pain (principal); R07.89 Other chest pain; R05.9 Cough, unspecified; K59.00 Constipation, unspecified; Z20.2 Contact with and (suspected) exposure to infections with a predominantly sexual mode of transmission; Z79.899 Other long term (current) drug therapy
CPT/HCPCS: 36415; 71046; 80048; 80076; 81001; 83690; 83735; 85025; 86140; 87086; 87491; 87591; 99282; 99283

== ENCOUNTER → 2024-06-24 02:55 | Outpatient (BNV) | payer SELFPAY | PROVIDERS: Emergency Provider Emergency Medicine; PCP Internal Medicine; Visit Provider Radiology Diagnostic Radiology | DX: R07.9 Chest pain, unspecified (principal); R05.9 Cough, unspecified | CPT/HCPCS: 71046 ==

== ENCOUNTER 2024-11-08 09:47 | Emergency (ER) | payer MEDICAID, SELFPAY ==
[2024-11-08 09:56] VITALS: BP 142/98; PULSE 83; RESP 18; TEMP 37.1; O2SAT 97; BMI 26.2
--- OUTSIDE RECORDS SUMMARY | 2024-11-08 11:33 | XMS_ITS | Encounter Summary ---
Author Organization [employer] Address [address] [facility] [address] [facility] [address] [place] [address] Care Team Providers Care Steel Buffer Name Role Phone Unavailable Primary Care Provider Unavailabl e Encounter Details Date Type Department Care Team (Late st Contact Info) Description 07/28/2024 Telephone [facility] [address] [place] [address] Ciara Womack DDS [address] [place] [address] Social History Tobacco Use Types Packs/Day Years Used Date Smoking Tobacco: Never Passive Smoke Exposure: Never Smokeless Tobacco: Never Alcohol Use Standard Drinks/Week Comments Never 0 (1 standard drink = 0.6 oz pur e alcohol) Sex and Gender Information Value Date Recorded Sex Assigned at Male 09/05/2023 9:12 AM EDT Legal Sex Male 9:10 AM EDT Gender Identity Male 09/05/2023 9:12 AM EDT Sexual Orientation Straight 09/05/2023 9: 12 AM EDT documented as of this encounter Miscellaneous Notes * Telephone Encounter - Diana Manning - 07/28/2024 8:54 AM EDT PT [employer] UNABLE TO POST COVERAGE DUE TO PORTAL BEING DOWN documented in this encounter Plan of Treatment Not on file documented as of this encounter Visit Diagnoses Not on filedocumented in this encounter
--- OUTSIDE RECORDS SUMMARY | 2024-11-08 11:33 | XMS_ITS | Clinical Summary ---
Author Organization [employer] [facility] Address [address] [facility] [address] [place] [address] Care Team Providers Care Sr. Manager Corporate Communications Name Role Phone Unavailable Primary Care Provider Unavailabl e Allergies No known active allergies Medications acetaminophen (Tylenol) 500 MG tablet Take 1 tablet (500 mg) by mouth every 6 (six) hours if needed for mild pain for up to 20 doses. 20 tablet 09/05/2023 Active ibuprofen 600 MG tablet Take 1 tablet (600 mg) by mouth every 6 (six) hours if needed for mild pain for up to 20 doses. 20 tablet 09/05/2023 Active lisinopril 20 MG tablet Take 20 mg by mouth Once per day. Active Active Problems No known active problems Encounters Date Type Department Care Team Description 10/21/2024 Population Health Risk Score [facility] ([facility]) Department [address] [id number] Provider, Population Health Generic 10/08/2024 Telephone [facility] [address] [place] [phone] Denis Frances MA chart prep 10/02/2024 Patient Outreach [facility] [address] [place] [id number] Joon Wolff MD Pre-visit Planning (SDOH screening negative and Tobacco screening negative) 08/14/2024 Telephone [facility] [address] [place] [address] Chrissy Pandya MD new patient visit from Last 3 Months Social History Tobacco Use Types Packs/Day Years Used Date Smoking Tobacco: Never Passive Smoke Exposure: Never Smokeless Tobacco: Never Tobacco Cessation:Counseling Given: No Alcohol Use Standard Drinks/Week Comments Never 0 (1 standard drink = 0.6 oz pur e alcohol) Housing Stability Answer Date Recorded What is your housing situation today? I have broderick dixon 10/02/[address] you li ve. Do you have problems with any of the following? None of the above 10/02/2024 Food Insecurity Answer Date Recorded Within the past 12 months, y ou worried that your food would run out before you got money to buy more: Never True 10/02/2024 Within the past 12 months,th e food you bought just didn't last and you didn't have enough money to get more: Never True Utilities Answer Date Recorded In the past 12 months, has t he electric, gas, oil or water company threatened to shut off services in your home? No 10/02/2024 Internet Access Answer Date Recorded Internet Access Q1 Yes 10/02/2024 Internet Access Q2 Not on file 10/02/2024 Sex and Gender Information Value Date Recorded Sex Assigned at Male 09/05/2023 9:12 AM EDT Legal Sex Male 9:10 AM EDT Gender Identity Male 09/05/2023 9:12 AM EDT Sexual Orientation Straight 09/05/2023 9: 12 AM EDT Last Filed Vital Signs Vital Sign Reading Time Taken Comments Blood Pressure 158/110 07/28/2024 11:30 AM EDT Pulse - - Temperature - - Respiratory Rate - - Oxygen Saturation - - Inhaled Oxygen Concentration - - Weight - - Height - - Body Mass Index - - Plan of Treatment Health Maintenance Due Date Last Done Comments CT Colonography 1973 Colonoscopy 1973 Colorectal Cancer Screening 1973 Dental Oral Exam 1973 Dental Prophylaxis 1973 Depression Screening 1973 FIT DNA/Cologuard 1973 FIT 1973 FOBT 1973 HIV Screening 1973 Lipid Panel 1973 SDOH Screening 1973 Sigmoidoscopy 1973 Disability Screening 1973 Alcohol/Substance Use Screening 1985 Family Planning (PISQ) 1988 Hepatitis C Screening 1991 DTaP/Tdap/Td Vaccines (1 - Tdap) 1992 Hepatitis B Vaccines (1 of 3 - 19+ 3-dose series) 1992 Pneumococcal Vaccine: 50+ Ye ars (1 of 1 - PCV) 2023 Zoster Vaccines (1 of 2) 2023 COVID-19 Vaccine (1 - 2023-2 5 season) 2024 Influenza Vaccine (#1) 2024 Tobacco Screening 07/28/2025 07/28/2024 Dental X-Ray: Bitewings 07/29/2025 07/28/2024 Dental X-Ray: Full Mouth 09/05/2026 09/05/2023 RSV Patients and Pa tients Aged 60 years or older (1 - 1-dose 75+ series) 2048 HIB Vaccines Aged Out No longer eligi ble based on patient's age to complete this topic HPV Vaccines Aged Out No longer eligi ble based on patient's age to complete this topic Hepatitis A Vaccines Aged Out No long er eligible based on patient's age to complete this topic IPV Vaccines Aged Out No longer eligi ble based on patient's age to complete this topic Meningococcal B Vaccine Aged Out No l onger eligible based on patient's age to complete this topic Meningococcal Vaccine Aged Out No zulma svitlana eligible based on patient's age to complete this topic RSV under 20 months Aged Out No longe r eligible based on patient's age to complete this topic Rotavirus Vaccines Aged Out No longer eligible based on patient's age to complete this topic Procedures Procedure Name Priority Date/Time Associated Diagnosis Comments BITEWING - SINGLE RADIOGRAPHIC IMAGE Routine 07/28/2024 11:30 AM EDT PANORAMIC RADIOGRAPHIC IMAGE Routine 09/05/2023 11:30 AM EDT from Last 3 Months or Most Recently Relevant to Health Maintenance Insurance [facility] C3 DENTAL-[facility] MEDICAID STAND ADULT
--- OUTSIDE RECORDS SUMMARY | 2024-11-08 11:33 | XMS_ITS | Encounter Summary ---
Author Organization [employer] Address [address] [facility] [address] [place] [address] Care Team Providers Care Cylinder Batcher Name Role Phone Unavailable Primary Care Provider Unavailabl e Reason for Visit * Reason Onset Date Comments new patient visit 08/14/2024 Encounter Details Date Type Department Care Team (Late st Contact Info) Description 08/14/2024 Telephone [facility] [address] [place], [place] [phone] Chrissy Pandya MD [address] [place], [place] [phone] new patient visit Social History Tobacco Use Types Packs/Day Years [...] encounter Miscellaneous Notes * Telephone Encounter - Osvaldo Castorena - 08/14/2024 10:01 AM EDT Outgoing call to patient to book New Patient appt. Patient booked for 10/09/[address] Pandya Medical DX Reported : HTN High Cholesterol *Action Installer advised caller to arrive 15 minutes early for the visit. Caller was also informed to notifythe clinic if the visit is no longer needed. No-shows will be placed at the bottom of the scheduling list. Appt reminder and sent via text and mail. documented in this encounter Plan of Treatment Not on file documented as of this encounter Visit Diagnoses Not on filedocumented in this encounter
== END 2024-11-08 11:53 | disposition left against medical advice (07) ==
PROVIDERS: Emergency Provider Emergency Medicine; PCP Internal Medicine
DX: M10.071 Idiopathic gout, right ankle and foot (principal)
CPT/HCPCS: 99281